=== PATIENT | female | born 1990 | race Caucasian/White ===

== ENCOUNTER 2019-07-17 03:01 | Emergency (ER) | payer MEDICAID, SELFPAY ==
[2019-07-17 03:02] VITALS: BP 125/112; PULSE 109; RESP 20; TEMP 36.6; O2SAT 99; BMI 31.6
--- NOTE | 2019-07-17 04:35 | ED.VISSUMM ---
- ER Visit Summary Date of Service: 07/17/19 Chief Complaint: I am tripping on meth History of Present Illness: The patient is a 29 F who states that she injected methamphetamine into her neck earlier tonight. She states that she is having some bad trips and is having hallucinations. She found her mom said she went to detox so they came here. Patient also states she has used cocaine and some sobs (meaning Suboxone). She is a smoker. She cannot tell me what medications she takes but thinks she may have a seizure disorder. She is allergic to penicillin. She is worried she is but thinks that that may just be related to her amphetamine high. She does states that she wants detox Physical Examination: Afebrile vital signs are stable noted heart rate of 109. Gen: Well-nourished well-developed Head: Normocephalic atraumatic Eyes: Perrl EOMI ENT: TMs clear no rhinorrhea moist mucous membranes Neck: Supple no lymphadenopathy no JVD nontender CVS: Regular rate rhythm no murmurs normal S1-S2 Respiratory: No distress clear to auscultation bilaterally chest nontender Abdomen: Soft nontender nondistended normal bowel sounds no masses Back: Nontender Extremity: Nontender no edema Skin: Normal color no rash Neuro: Hyper alert but orientated x3 CN II-XII intact normal strength sensation reflexes gait cerebellar Psych: Patient is hyper alert. She is expressing hallucinations of voices and seeing people do things that they are not. She is pacing around the room. At sometimes she does get agitated. Test Results: test was negative Emergency Department Course and Treatment: Patient is requesting something to help calm her down and she received Geodon. She will be reassessed when she is sober. Impression: 1. Methamphetamine toxidrome This note was generated with [employer] software. It may contain incorrect words, spelling, and punctuation that were not noted in review of the chart prior to signing <Caleb Bates - Last Filed: 07/17/19 04:35> - ER Visit Summary Date of Service: 07/17/19 The patient was evaluated until she was clinically sober. She was seen by social work. Arrangements have been made for outpatient follow-up. She will be discharged home. This note was generated with [employer] software. It may contain incorrect words, spelling, and punctuation that were not noted in review of the chart prior to signing <Cristiano Sanabria - Last Filed: 07/17/19 13:12> ED Disposition <Caleb Bates - Last Filed: 07/17/19 04:35> <Crisitano Sanabria - Last Filed: 07/17/19 13:12> - Plan for ED Patient: Instructions: Drug Abuse Referrals: Care Physician,No Primary [Primary Care Provider] -
[2019-07-17 04:38] LABS: Internal QC Validated? YES +Cl - CLEAR BKGD; Pregnancy, Urine Negative Negative
[2019-07-17] MEDS: Ziprasidone IM 20 MG/ML VIAL IM (04:42)
[2019-07-17 04:56] LABS: Amphetamine Urine VISTA POSITIVE (<1000 ng/mL); Barbiturate Urine VISTA NEGATIVE (< 200 ng/mL); Benzodiazepine Urine VISTA NEGATIVE (< 200 ng/mL); Cocaine Urine VISTA POSITIVE (< 300 ng/mL); Ecstacy Urine VISTA NEGATIVE (< 500 ng/mL); Methadone Urine VISTA NEGATIVE (< 300 ng/mL); PCP Urine VISTA NEGATIVE (< 25 ng/mL); THC Urine VISTA POSITIVE (< 50 ng/mL); Vista UDS pH Range 7
[2019-07-17 07:00] VITALS: RESP 16
[2019-07-17 09:00] VITALS: RESP 14
[2019-07-17 11:00] VITALS: BP 99/60; PULSE 57; RESP 16; O2SAT 100
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
[2019-07-17 13:17] VITALS: PULSE 103; RESP 16; O2SAT 99
== END 2019-07-17 13:18 | disposition home or self-care (01) ==
PROVIDERS: Emergency Provider Emergency Medicine
DX: T43.691A Poisoning by other psychostimulants, accidental (unintentional), initial encounter (principal); Y92.9 Unspecified place or not applicable; F14.90 Cocaine use, unspecified, uncomplicated; F17.200 Nicotine dependence, unspecified, uncomplicated
CPT/HCPCS: 80307; 81025; 96372; 99282; J3486

== ENCOUNTER 2020-02-15 13:51 | Emergency (ER) | payer MEDICAID, SELFPAY ==
[2020-02-15 13:51] VITALS: BP 125/78; PULSE 98; RESP 16; TEMP 36.2; O2SAT 99; BMI 29.0
--- NOTE | 2020-02-15 14:32 | ED.DEP ---
ED Disposition - Plan for ED Patient: Instructions: ED ENTEROBIASIS Prescriptions: Mebendazole [Emverm] 100 mg PO X1 #2 tab.chew Referrals: Care Physician,No Primary [Primary Care Provider] -
--- NOTE | 2020-02-15 14:39 | ED.DCSUM_ITS ---
- ER Visit Summary Date of Service: 02/15/20 Chief Complaint: Something in stool History of Present Illness: The patient is a 29 F states that she saw something in her stool that she thought was a worm. She states it appeared thin and white. She denies anal itching. She also complains of feeling that she has bugs all over her skin. She frequently picks her skin. She has a history of methamphetamine use. She denies fever, other complaints. Physical Examination: Vitals are stable. Patient is afebrile. Alert no acute distress. HEENT exam is unremarkable. Neck is supple. Lungs are clear and equal bilaterally. Heart is regular rate and rhythm. Abdomen is soft nontender nondistended. Extremities are unremarkable. Skin is warm and dry. Multiple excoriations and scabbing No focal neurologic deficit. Remainder of exam is unremarkable. Emergency Department Course and Treatment: I do not visualize any bugs on her skin. She is given a prescription for mebendazole to treat for possible pinworms. Stool studies were sent. Advised to follow-up with her primary care physician. Advised return to the ED for worsening complaints. Disposition: Discharge home Impression: Reported worms in stool, polysubstance abuse This note was generated with [employer] dictation software. It may contain incorrect words, spelling, and punctuation that were not noted in review of the chart prior to signing ED Disposition - Plan for ED Patient: Instructions: ED ENTEROBIASIS Prescriptions: Mebendazole [Emverm] 100 mg PO X1 #2 tab.chew Prescription Printed Referrals: Care Physician,No Primary [Primary Care Provider] -
== END 2020-02-15 15:29 | disposition home or self-care (01) ==
PROVIDERS: Emergency Provider Emergency Medicine
DX: R19.5 Other fecal abnormalities (principal); F19.10 Other psychoactive substance abuse, uncomplicated; Z72.0 Tobacco use
CPT/HCPCS: 87506; 99282

== ENCOUNTER → 2025-01-18 | Outpatient (CLI) | payer MEDICAID, SELFPAY ==
[2025-01-18 14:18] LABS: Hemoglobin A1c 5.6 % (<=5.6)
[2025-01-18 15:29] LABS: ALB/GLOB Ratio 1.2 RATIO (0.9-2.4); AST(SGOT) 33 U/L (<=31); Alanine Aminotransfer ALT/SGPT 45 U/L (<=34); Albumin, Serum 4.2 g/dL (3.5-5.0); Alkaline Phosphatase 75 U/L (35-104); Anion Gap 12 (5-15); BUN 10 mg/dL (4-19); BUN/Creat Ratio 15.5 RATIO (10-20); Calcium,Total 9.2 mg/dL (7.6-11.0); Carbon Dioxide 21.9 mmol/L (21.0-32.0); Chloride 104 mmol/L (98-108); Creatinine, Serum 0.63 mg/dL (0.70-1.20); EST Glomerular Filtration Rate 121 (>60); Globulin 3.6 g/dL (2.2-4.2); Glucose 96 mg/dL (70-99); HIV Nonreactive (Nonreactive); Hepatitis B Surface Antibody REAC; Hepatitis B Surface Antigen Nonreactive (Nonreactive); Potassium 3.9 mmol/L (3.3-5.1); Protein, Total 7.8 g/dL (5.9-8.4); Sodium Level 137 mmol/L (133-145); Total Bilirubin 0.38 mg/dL (0.00-1.30)
== END | disposition home or self-care (01) ==
PROVIDERS: Referring Provider Family Medicine; Visit Provider Family Medicine
DX: F11.20 Opioid dependence, uncomplicated (principal)
CPT/HCPCS: 36415; 80053; 83036; 84443; 86703; 86706; 86708; 87340; 87522; 87902

== ENCOUNTER → 2025-02-15 | Outpatient (CLI) | payer MEDICAID, SELFPAY ==
[2025-02-15 12:36] LABS: Hematocrit 34.1 % (37-47); Hemoglobin 11.5 g/dL (12.0-15.0); Mean Corp Hgb Conc 33.7 g/dL (32-36); Mean Corpuscular Hgb 26.7 pg (27.0-32.0); Mean Corpuscular Volume 79.1 fL (81-99); Platelet Count 231 K/mm3 (150-450); RBC Distribution Width CV 13.5 % (11.6-14.6); RBC Distribution Width SD 38.9 fl (35.1-43.9); Red Blood Count 4.31 M/mm3 (4.2-5.4); White Blood Count 5.8 K/mm3 (4.4-11.0)
[2025-02-15 12:56] LABS: Prothrombin Time (Protime)PT. 13.4 SECONDS (11.7-14.9)
[2025-02-15 13:16] LABS: Hepatitis B Surface Antibody REAC
[2025-02-15 13:35] LABS: ALB/GLOB Ratio 1.1 RATIO (0.9-2.4); AST(SGOT) 22 U/L (<=31); Alanine Aminotransfer ALT/SGPT 35 U/L (<=34); Albumin, Serum 4.1 g/dL (3.5-5.0); Alkaline Phosphatase 72 U/L (35-104); Anion Gap 11 (5-15); BUN 13 mg/dL (4-19); BUN/Creat Ratio 19.9 RATIO (10-20); Calcium,Total 9.9 mg/dL (7.6-11.0); Carbon Dioxide 21.4 mmol/L (21.0-32.0); Chloride 104 mmol/L (98-108); Cholesterol 92 mg/dL (<=200); Creatinine, Serum 0.63 mg/dL (0.70-1.20); EST Glomerular Filtration Rate 121 (>60); Globulin 3.8 g/dL (2.2-4.2); Glucose 87 mg/dL (70-99); HIV Nonreactive (Nonreactive); Hepatitis B Surface Antigen Nonreactive (Nonreactive); High Density Lipoprotein 60 mg/dL; Low Density Lipoprotein Calc. 24 mg/dL; Protein, Total 7.9 g/dL (5.9-8.4); Sodium Level 136 mmol/L (133-145); Total Bilirubin 0.54 mg/dL (0.00-1.30); Triglycerides 36 mg/dL; Very Low Density Lipoprotein 7 mg/dL (5-40); Vitamin B12 463 pg/mL (180-914); Vitamin D,25 Hydroxy 24.4 ng/mL (30-100); cholesterol:hdl ratio screen 1.52
== END | disposition home or self-care (01) ==
LOC: LAB 11:48
PROVIDERS: PCP Family Medicine; Referring Provider Family Medicine; Visit Provider Family Medicine
DX: B18.2 Chronic viral hepatitis C (principal)
CPT/HCPCS: 36415; 80053; 80061; 82306; 82607; 85027; 85610; 86703; 86706; 86708; 87340; 87522; 87902

== ENCOUNTER → 2025-04-12 | Outpatient (CLI) | payer MEDICAID, SELFPAY ==
[2025-04-12 13:14] LABS: Free T3 3.2 pg/mL (2.18-3.98)
--- OUTSIDE RECORDS SUMMARY | 2025-04-12 21:15 | XMS RPT_ITS | CCD ---
Author Organization [facility] CliniSynh Care Team Providers Care Ophthalmic Surgeon Name Role Phone Criss Larry Unavailable Unavailable Unavailable Unavailable Unavailable Vore, Gabriel W Unavailable Unavailable Vore, Gabriel W Unavailable Unavailable THOMAE, FÉLIX R. Unavailable Unavailable THOMAE, FÉLIX R. Unavailable Unavailable THOMAE, FÉLIX R. Unavailable Unavailable Thomae, Félix Unavailable Unavailable Thomae, Félix Unavailable Unavailable Thomae, Félix Unavailable Unavailable Thomae, Félix Unavailable Unavailable Thomae, Félix Unavailable Unavailable Thomae, Félix Unavailable Unavailable Thomae, Félix Unavailable Unavailable Thomae, Félix Unavailable Unavailable Criss Larry Primary Care Provider Gabby vailable Criss Larry Primary Care Provider [phone] Criss Larry Primary Care Provider [phone] NONE, NONE Primary Care Unavailable ROSELIA BOURGEOIS A Admitting Unavailable ROSELIA BOURGEOIS A Attending Unavailable NONE, NONE Consulting Unavailable LaronCriss novoa CNP Primary Care Provider Criss Larry CNP Primary Care Provider Ceci Lal CNP Unavailable Lance GONSALES, Amanda Gannon Unavailable Preston GONSALES, Susannah Muñoz Unavailable Shireen DONG, Salud Mchugh Unavailable LaronCriss novoa CNP Primary Care Provider [facility], Ceci Burnettee Unavailable [phone] Lance GONSALES, Amanda Gannon Unavailable Susannah Johnston MD Unavailable [phone] Shireen VALLECILLO, Salud Lolita Unavailable No, Physician Primary Care Provider Unavailabl e Required, No Pcp Unavailable Unavailable Vazquez, Camron Unavailable Vazquez, PAC Camron Attending Unavailable Vazquez, PAC Camron Attending Unavailable [facility], Ceci Lore Unavailable Lance GONSALES, Amanda Gannon Unavailable Preston GONSALES, Susannah Muñoz Unavailable Shireenprudencio VALLECILLO, Salud Lolita Unavailable No, Physician Primary Care Provider Unavailsaroj Cox MD, Maycol Hood Unavailable [phone] [facility], Criss Lantigua Primary Care Provider No, Physician Primary Care Provider Unavailabl e Candice CLINICAL NURSE EDUCATOR, Guerline Hinton Primary Care Provider Unavailable Primary Care Provider Unavailabl e DANYEL NEWELL Attending Unavailable Rickey GONSALES, Susannah Muñoz Unavailable [phone] BETHANY CROWDER Attending Unavailable GUERLINE HARVEY Primary Care Unavailable GUERLINE HARVEY Primary Care Unavailable YAMIL OLIVEROS JR. Attending Unava ilable GUERLINE HARVEY Primary Care Unavailable MIGUEL ÁNGEL WOODS Attending Unavailable Labor, Rhina Attending Unavailable Labor, Rhina Referring Unavailable Care Physician, No Primary Primary Care Unava ilable Labor, Rhina Attending Unavailable Labor, Rhina Referring Unavailable Labor, Rhina Primary Care Unavailable Allergies Allergy Classification Reported Allergen(s) Allergy Type Date of Onset Reaction(s) Facility Penicillins (antibiotic) (1 source) Penicillins Drug Allergy 6 [facility] Work Phone: (14 sources) Penicillins; Translations: [penicillins] Propensity to adverse reactions to drug 6 Hives [facility] (1 source) No Known Allergies; Translations: [No Known Allergies] Propensity to adverse reactions to drug (disorder) [facility] Repository (1 source) Penicillins Drug allergy (disorder) [facility] Repository (5 sources) Penicillins Propensity to adverse reactions to drug 6 [facility] Work Phone: (8 sources) Penicillins Propensity to adverse reactions to drug 6 [facility] Work Phone: (2 sources) Penicillin Drug Allergy [facility] (1 source) Penicillins Propensity to adverse reactions to drug 4 [facility] (1 source) Penicillins Propensity to adverse reactions to drug 6 [facility] Work Phone: (1 source) Penicillins Drug allergy (disorder) 0 [facility] Repository Medications Current Medications Medication Drug Class(es) Dates Sig (Normalized) Sig (Original) azithromycin 500 mg oral tablet (2 sources) Macrolide Antimicrobial Start: 04-22-2019 take 2 tablets by mouth once daily azithromycin (ZITHROMAX) 500 MG tablet Take 2 (two) tablets (1,000 mg total) by mouth daily . 2 tablet 0 04/22/2019 Active baclofen 10 mg oral tablet (8 sources) gamma-Aminobutyric Acid-ergic Agonist Start: 08-02-2022 End: 08-08-2022 take 1 tablet by mouth three times daily for muscle spasms baclofen 10 mg oral tablet ; 1 tab(s) orally 3 times a day, As Needed -for spasms Quantity: 21 Refills: 0 Ordered: 02-Aug-2022 Camron Shukla Start: 02-Aug-2022 End: 08-Aug-2022 Generic Substitution Allowed Comments: It is very important that you take or use this exactly as directed. Do not skip doses or discontinue unless directed by your doctor.May cause drowsiness. Alcohol may intensify this effect. Use care when operating dangerous machinery.Obtain medical advice before taking any non-prescription drugs as some may affect the action of this medication. Start: 11-24-2019 take 1 tablet by [place] three times daily baclofen (LIORESAL) 20 MG tablet Take 1 (one) tablet (20 mg total) by mouth 3 (three) times a day . 90 tablet 0 11/24/2019 Active Start: 09-30-2019 End: 10-30-2019 take 1 tablet by mouth three times daily baclofen (LIORESAL) 20 MG tablet Take 1 (one) tablet (20 mg total) by mouth 3 (three) times a day . 90 tablet 0 09/30/2019 10/30/2019 Active Start: 10-30-2018 take 1 tablet by [place] three times daily baclofen (LIORESAL) 10 MG tablet Take 1 (one) tablet (10 mg total) by mouth 3 (three) times a day . 90 tablet 0 10/30/2018 Active Comment on above: It is very important that you take or use this exactly as directed. Do not skip doses or discontinue unless directed by your doctor.May cause drowsiness. Alcohol may intensify this effect. Use care when operating dangerous machinery.Obtain medical advice before taking any non-prescription drugs as some may affect the action of this medication. benzoyl peroxide 50 mg/ml medicated liquid soap (4 sources) Start: 10-05-2019 End: 10-04-2020 benzoyl peroxide (BENZAC AC) 5 % external wash Indications: Acne, unspecified acne type Apply topically 2 (two) times a day . 226 g 0 10/05/2019 10/04/2020 Active Brixadi 8 mg/0.16 mL injection (2 sources) Start: 10-06-2024 Brixadi 8 mg/0.16 mL injection 10/06/2024 Active buprenorphine 4 mg / naloxone 1 mg oral strip (5 sources) Partial Opioid Agonist, Opioid Antagonist Start: 12-09-2019 buprenorphine-nalOXone (SUBOXONE FILM) 4-1 mg Film Indications: Opioid abuse (HCC) Place 1 (one) each (4 mg of buprenorphine total) under the tongue daily Days supply per fill: seven. Days one and two: 2 films perday. Thereafter 1 film per day . 9 each 0 12/09/2019 Active buprenorphine-na lOXone (SUBOXONE) 12-[address] under the tongue daily . 0 Active citalopram 20 mg oral tablet (7 sources) Serotonin Reuptake Inhibitor Start: 01-12-2019 take 1 tablet by mouth once daily citalopram (CELEXA) 20 MG tablet Take 1 (one) tablet (20 mg total) by mouth daily . 90 tablet 0 01/12/2019 Active take 1 tablet by mouth once willie y citalopram (CELEXA) 20 MG tablet Take 20 mg by mouth daily. Active cloNIDine hydrochloride 0.1 mg oral tablet (20 sources) Central alpha-2 Adrenergic Agonist Start: 10-06-2024 take 1 tablet by mouth twice daily cloNIDine HCL (CATAPRES) 0.1 MG tablet Take 1 (one) tablet (0.1 mg total) by mouth 2 (two) times a day . 10/06/2024 Active Start: 08-02-2022 End: 08-08-2022 [id number] 0.1 mg/24 hr transdermal film, extended release ; Apply topically to affected area once a day Quantity: 7 Refills: 0 Ordered: 02-Aug-2022 Camron Shukla Start: 02-Aug-2022 End: 08-Aug-2022 Generic Substitution Allowed Comments: For external use only.It is very important that you take or use this exactly as directed. Do not skip doses or discontinue unless directed by your doctor.May cause drowsiness. Alcohol may intensify this effect. Use care when operating dangerous machinery.Remove old patch prior to applying a new patch.Some non-prescription drugs may aggravate your condition. Read all labels carefully. If a warning appears, check with your doctor before taking. Start: 10-03-2021 End: 11-27-2022 take 1 tablet by mouth three times daily for anxiety cloNIDine HCL (CATAPRES) 0.1 MG tablet Indications: Mood disorder (HCC) take 1 tablet by mouth three times a day if needed for anxiety 60 tablet 2 12/05/2021 11/27/2022 Discontinued (Patient's Request) Start: 03-07-2020 take 1 tablet by [place] th three times daily as needed for anxiety cloNIDine HCL (CATAPRES) 0.1 MG tablet Take 1 (one) tablet (0.1 mg total) by mouth 3 (three) times a day as needed (anxiety) . 60 tablet 2 03/07/2020 Active Start: 01-12-2019 End: 09-14-2020 take 1 tablet by mouth twice daily cloNIDine HCl (CATAPRES) 0.1 MG tablet Take 1 (one) tablet (0.1 mg total) by mouth 2 (two) times a day . 60 tablet 1 04/22/2019 04/21/2020 Active Comment on above: For external use onl y.It is very important that you take or use this exactly as directed. Do not skip doses or discontinue unless directed by your doctor.May cause drowsiness. Alcohol may intensify this effect. Use care when operating dangerous machinery.Remove old patch prior to applying a new patch.Some non-prescription drugs may aggravate your condition. Read all labels carefully. If a warning appears, check with your doctor before taking. doxycycline hyclate 100 mg oral tablet (1 source) Tetracycline-class Drug Start: 10-02-19 End: 10-16-19 22 take 1 tablet by mouth twice daily doxycycline hyclate (VIBRA-TABS) 100 MG tablet Take 1 (one) tablet (100 mg total) by mouth 2 (two) times a day for 14 days . 28 tablet 0 10/02/2021 10/16/2021 Active lamoTRIgine 25 mg oral tablet (18 sources) Mood Stabilizer, Anti-epileptic Agent Start: 11-28-19 23 lamoTRIgine (LAMICTAL) 25 MG tablet Indications: Psychogenic nonepileptic seizure , Bipolar affective disorder, remission status unspecified (HCC) Take 25 mg (1 tablet) once a day for 2 weeks, then increase to 50 mg (2 tablets) daily. . 60 tablet 5 11/27/2022 Active Start: 03-07-2020 End: 10-23-2021 lamoTRIgine (LAMICTAL) 100 M G tablet Indications: Seizure (HCC) Take 1.5 (one and a half) tablets (150 mg total) by mouth 2 (two) times a day . 45 tablet 2 03/07/2020 10/23/2021 Discontinued (Patient's Request) Start: 02-15-2020 lamoTRIgine (L AMICTAL) 100 MG tablet take 1 and 1/2 tablets by mouth twice a day 90 tablet 0 02/15/2020 Active Start: 12-27-2019 lamoTRIgine (L AMICTAL) 100 MG tablet take 1 and 1/2 tablets by mouth twice a day 90 tablet 0 12/27/2019 Active Start: 10-04-2019 lamoTRIgine (L AMICTAL) 100 MG tablet Take 1.5 (one and a half) tablets (150 mg total) by mouth 2 (two) times a day . 90 tablet 0 10/04/2019 Active Start: 10-30-2018 lamoTRIgine (L AMICTAL) 100 MG tablet Take 1.5 (one and a half) tablets (150 mg total) by mouth 2 (two) times a day . 270 tablet 1 10/30/2018 Active Start: 01-29-2018 lamoTRIgine (L AMICTAL) 100 MG tablet Take 1.5 (one and a half) tablets (150 mg total) by mouth 2 (two) times a day. 270 tablet 1 01/29/2018 Active Start: 12-09-2016 take 1.5 tablets by mouth twice daily lamoTRIgine (LAMICTAL) 100 MG tablet Take 1.5 tablets (150 mg total) by mouth 2 (two) times a day. 270 tablet 5 12/09/2016 Active lofexidine 0.18 mg oral tablet (3 sources) Start: 11-24-2019 take 0.54 mg by mouth four times daily lofexidine 0.18 mg Tab Indications: Opioid withdrawal (HCC) Take 0.54 mg by mouth 4 (four) times a day . 96 tablet 0 11/24/2019 Active Start: 09-30-2019 take 0.54 mg by mout h four times daily lofexidine 0.18 mg Tab Take 0.54 mg by mouth 4 (four) times a day . 36 tablet 0 09/30/2019 Active mupirocin 0.02 mg/mg topical ointment (5 sources) RNA Synthetase Inhibitor Antibacterial Start: 08-02-2022 mupirocin 2% top ical ointment ; Apply topically to affected area 3 times a day Quantity: 1 Refills: 0 Ordered: 02-Aug-2022 Camron Shukla Start: 02-Aug-2022 Generic Substitution Allowed Comments: For external use only. Start: 06-04-2022 End: 11-27-2022 mupirocin (BACTROBAN) 2 % oi ntment Apply topically 3 (three) times a day . 22 g 0 06/04/2022 11/27/2022 Discontinued (Patient's Request) Comment on above: For external use onl y. naloxone hydrochloride 40 mg/ml nasal spray (6 sources) Opioid Antagonist Start: 06-10-2022 naloxone (NARCAN) 4 mg/actuation [place] Indications: Psychogenic nonepileptic seizure Administer 1 spray into one nostril for known or suspected opioid overdose. If patient worsens or does not respond, may repeat in 2-3 minutes. . 2 each 0 06/10/2022 Active Start: 04-26-2019 End: 04-26-2019 naloxone (NARCAN) injection 2 mg naloxone (NARCAN) 4 mg/actuation [place] (2 sources) Start: 06-10-2022 naloxone (NARC AN) 4 mg/actuation [place] Indications: Psychogenic nonepileptic seizure Administer 1 spray into one nostril for known or suspected opioid overdose. If patient worsens or does not respond, may repeat in 2-3 minutes. . 2 each 06/10/2022 Active naltrexone 380 mg injection (6 sources) Opioid Antagonist Start: 09-30-2019 naltrexone m icrospheres (VIVITROL) Indications: Heroin Use Inject 380 (three hundred eighty) mg into the shoulder, thigh, or buttocks every 30 (thirty) days . 1 each 11 09/30/2019 Active Start: 10-15-2016 VIVITROL Injec t 380 mg into the shoulder, thigh, or buttocks every 28 days. 6 10/15/2016 Active ondansetron 4 mg disintegrating oral tablet (14 sources) Serotonin-3 Receptor Antagonist Start: 05-11-2024 End: 05-11-2024 4 mg, Intravenous, ONCE, 1 dose, On Fri05/11/24 at 2030 Start: 08-02-2022 End: 08-06-2022 take 1 tablet by mouth three times daily ondansetron 4 mg oral tablet, disintegrating ; 1 tab(s) orally 3 times a day Quantity: 15 Refills: 0 Ordered: 02-Aug-2022 Camron Shukla Start: 02-Aug-2022 End: 06-Aug-2022 Generic Substitution Allowed Start: 03-08-2020 End: 10-23-2021 apply 1 tablet topically every eight hours as needed for nausea ondansetron (ZOFRAN-ODT) 4 MG disintegrating tablet Indications: Opioid abuse (HCC) Dissolve 1 (one) tablet (4 mg total) on top of tongue every 8 (eight) hours as needed for nausea . 6 tablet 0 03/08/2020 10/23/2021 Discontinued (Patient's Request) Start: 02-24-2020 End: 10-23-2021 take 4 mg by mouth every eight hours as needed ondansetron (ZOFRAN) 8 MG tablet Take 0.5 (one-half) tablet (4 mg total) by mouth every 8 (eight) hours as needed . 14 tablet 0 02/24/2020 10/23/2021 Discontinued (Patient's Request) Start: 05-05-2019 End: 05-05-2019 ondansetron (ZOFRAN-ODT) disintegrating tablet 4 mg Start: 10-30-2018 take 1 tablet by [place] th every eight hours as needed ondansetron (ZOFRAN) 4 MG tablet Take 1 (one) tablet (4 mg total) by mouth every 8 (eight) hours as needed for nausea . 20 tablet 0 10/30/2018 Active sertraline 100 mg oral tablet (16 sources) Serotonin Reuptake Inhibitor Start: 10-06-2024 take 1 tablet by mouth once daily sertraline (ZOLOFT) 100 MG tablet Take 1 (one) tablet (100 mg total) by mouth daily . 10/06/2024 Active Start: 10-03-2021 End: 11-27-2022 take 1 tablet by mouth once daily sertraline (ZOLOFT) 50 MG tablet Take 1 (one) tablet (50 mg total) by mouth daily . 30 tablet 2 12/14/2021 11/27/2022 Discontinued (Patient's Request) Start: 09-15-2019 End: 09-14-2020 take 1 tablet by mouth once daily sertraline (ZOLOFT) 25 MG tablet Indications: Mood disorder (HCC) take 1 tablet by mouth once daily 30 tablet 0 07/25/2020 Active sulfamethoxazole 800 mg / trimethoprim 160 mg oral tablet (1 source) Dihydrofolate Reductase Inhibitor Antibacterial, Sulfonamide Antimicrobial Start: 08-02-2022 End: 08-11-2022 take 1 tablet by mouth every twelve hours Bactrim DS 800 mg-160 mg oral tablet ; 1 tab(s) orally every 12 hours Quantity: 20 Refills: 0 Ordered: 02-Aug-2022 Camron Shukla Start: 02-Aug-2022 End: 11-Aug-2022 Generic Substitution Allowed Comments: Avoid prolonged or excessive exposure to direct and/or artificial sunlight while taking this medication.Finish all this medication unless otherwise directed by prescriber.Medication should be taken with plenty of water. Comment on above: Avoid prolonged or e xcessive exposure to direct and/or artificial sunlight while taking this medication.Finish all this medication unless otherwise directed by prescriber.Medication should be taken with plenty of water. Completed/Discontinued Medications Medication Drug Class(es) Dates Sig (Normalized) Sig (Original) amoxicillin 875 mg / clavulanate 125 mg oral tablet (1 source) Penicillin-class Antibacterial Start: 06-04-2022 End: 06-11-2022 take 1 tablet by mouth twice daily amoxicillin-clavul anate (AUGMENTIN) 875-125 mg per tablet Take 1 (one) tablet by mouth 2 (two) times a day for 7 days . 14 tablet 0 06/04/2022 06/11/2022 benzoyl peroxide 0.05 mg/mg / clindamycin 0.01 mg/mg topical gel (2 sources) Lincosamide Antibacterial Start: 01-12-2019 End: 01-12-2020 clindamycin-benzoy l peroxide (BENZACLIN) gel Apply topically 2 (two) times a day . 25 g 0 01/12/2019 03/19/2019 Discontinued (Therapy completed) buprenorphine 2 mg sublingual tablet (2 sources) Partial Opioid Agonist Start: 07-15-2022 End: 07-17-2022 take 1 tablet under the tongue twice daily buprenorphine 2 mg sublingual tablet ; 1 tab(s) sublingually 2 times a day ANGELA: [id number] Quantity: 6 Refills: 0 Ordered: 15-Jul-2022 Camron Shukla Start: 15-Jul-2022 End: 17-Jul-2022 Status: Other Generic Substitution Allowed Comments: Caution [place] law prohibits the transfer of this drug to any person other than the person for whom it was prescribed.Do not drink alcoholic beverages when taking this medication.It is very important that you take or use this exactly as directed. Do not skip doses or discontinue unless directed by your doctor.May cause drowsiness or dizziness.This drug may impair the ability to drive or operate machinery. Use care until you become familiar with its effects. Comment on above: [place]ution [place] law prohibits the transfer of this drug to any person other than the person for whom it was prescribed.Do not drink alcoholic beverages when taking this medication.It is very important that you take or use this exactly as directed. Do not skip doses or discontinue unless directed by your doctor.May cause drowsiness or dizziness.This drug may impair the ability to drive or operate machinery. Use care until you become familiar with its effects. clindamycin 150 mg oral capsule (3 sources) Lincosamide Antibacterial Start: 07-15-2022 End: 07-21-2022 take 2 capsules by mouth every eight hours clindamycin 150 mg oral capsule ; 2 cap(s) orally every 8 hours Quantity: 42 Refills: 0 Ordered: 15-Jul-2022 Camron Shukla Start: 15-Jul-2022 End: 21-Jul-2022 Status: Other Generic Substitution Allowed Comments: Finish all this medication unless otherwise directed by prescriber.Medicat ion should be taken with plenty of water. Start: 10-02-2021 End: 10-16-2021 take 1 capsule by mouth three times daily clindamycin (CLEOCIN) 300 MG capsule Take 1 (one) capsule (300 mg total) by mouth 3 (three) times a day for 14 days . 42 capsule 0 10/02/2021 10/16/2021 Active Comment on above: Finish all this medi cation unless otherwise directed by prescriber.Medication should be taken with plenty of water. dicyclomine hydrochloride 10 mg oral capsule (2 sources) Anticholinergic Start: 2018 End: 2018 take 1 capsule by mouth three times daily as needed dicyclomine (BENTYL) 10 MG capsule Take 1 (one) capsule (10 mg total) by mouth 3 (three) times a day as needed (stomach cramps) . 30 capsule 0 10/30/2018 03/19/2019 Discontinued (Discontinued by another clinician) 1 ml diphenhydrAMINE hydrochloride 50 mg/ml cartridge (1 source) Histamine-1 Receptor Antagonist Start: 2023 End: 2023 50 mg, Intravenous, ONCE, 1 dose, On Fri05/11/24 at 2030 Ethinyl Estradiol / norgestimate (11 sources) Progestin, Estrogen Start: 2018 End: 2021 take 1 tablet by mouth once daily norgestimate-ethin yl estradiol (ORTHO-CYCLEN) 0.25-35 mg-mcg per tablet Take 1 (one) tablet by mouth daily . 30 tablet 11 10/30/2018 10/23/2021 Discontinued (Patient's Request) Start: 10-30-2018 [facility] norgestimate-ethinyl estradiol (ORTHO-CYCLEN) 0.25-35 mg-mcg per tablet Take 1 (one) tablet by mouth daily . 30 tablet 11 10/30/2018 Active Start: 10-30-2018 End: 10-30-2019 take 1 tablet by mouth once daily norgestimate-ethinyl estradiol (ORTHO-CYCLEN) 0.25-35 mg-mcg per tablet Take 1 (one) tablet by mouth daily . 30 tablet 11 10/30/2018 10/30/2019 Active gabapentin 800 mg oral tablet (20 sources) Anti-epileptic Agent Start: 08-05-2022 End: 11-27-2022 take 1 tablet by mouth three times daily gabapentin (NEURONTIN) 800 MG tablet Indications: Psychogenic nonepileptic seizure Take 1 (one) tablet (800 mg total) by mouth 3 (three) times a day . 90 tablet 0 08/05/2022 11/27/2022 Discontinued (Patient's Request) Start: 12-09-2016 End: 06-10-2022 take 1 tablet by mouth three times daily gabapentin (NEURONTIN) 800 MG tablet Indications: Psychogenic nonepileptic seizure take 1 tablet by mouth three times a day 90 tablet 0 05/10/2022 06/10/2022 Discontinued take 1 capsule by [facility] three times daily gabapentin (NEURONTIN) 400 MG capsule Take 1 (one) capsule (400 mg total) by mouth 3 (three) times a day . Active hydrOXYzine pamoate 25 mg oral capsule (2 sources) Antihistamine Start: 10-30-2018 End: 03-19-2019 take 1 capsule by mouth three times daily as needed for anxiety hydrOXYzine (VISTARIL) 25 MG capsule Take 1 (one) capsule (25 mg total) by mouth 3 (three) times a day as needed for anxiety . 90 capsule 0 10/30/2018 03/19/2019 Discontinued (Discontinued by another clinician) 1 ml LORazepam 2 mg/ml injection (2 sources) Benzodiazepine Start: 05-11-2024 End: 05-11-2024 1 mg, Intravenous, ONCE, 1 dose, On Fri05/11/24 at 2200, Extravasation Risk mebendazole 100 mg chewable tablet (1 source) Antihelminthic Start: 02-15-2020 End: 10-23-2021 mebendazole (VERMOX) 100 mg chewable tablet Mebendazole Active 100 MG ONE TIME 2 February 15, 2020 2:33pm take one tab then repeat in 2 weeks 0 02/15/2020 10/23/2021 Discontinued (Patient's Request) methadone hydrochloride 1 mg/ml oral solution (2 sources) Opioid Agonist End: 03-10-2023 take 30 mL by mouth once daily methadone (DOLOPHINE) 5 mg/5 mL solution Take 30 mL (30 mg total) by mouth daily . 0 03/10/2023 Discontinued (Discontinued by another clinician) multiple vitamin (MVI) 10 mL, Folic acid 1 mg, Thiamine (Vitamin B-1) 100 mg, Magnesium sulfate 2 g in Sodium chloride 0.9%, with overfill 1,065.2 mL (total volume) infusion (1 source) Start: 05-11-2024 End: 05-11-2024 Intravenous, Administer over 2 Hours, ONCE, 1 dose, On Fri05/11/24 at 2030 pantoprazole 40 mg injection (1 source) Proton Pump Inhibitor Start: 05-11-2024 End: 05-11-2024 40 mg, Intravenous, ONCE, 1 dose, On Fri05/11/24 at 2030, Dilute each 40 mg vial with 10 mL of NS. All bolus doses, whether 40 mg or 80 mg, should be administered over at least two minutes., Indications: Inpt Stress Ulcer Prophylaxis QUEtiapine 100 mg oral tablet (20 sources) Atypical Antipsychotic Start: 10-03-2021 End: 11-27-2022 take 1 tablet by mouth once daily QUEtiapine (SEROQUEL) 100 MG tablet Indications: Mood disorder (HCC) Take 1 (one) tablet (100 mg total) by mouth nightly . 45 tablet 2 10/03/2021 11/27/2022 Discontinued (Patient's Request) Start: 03-07-2020 take 1 tablet by [place] th once daily QUEtiapine (SEROQUEL) 100 MG tablet Indications: Mood disorder (HCC) Take 1 (one) tablet (100 mg total) by mouth nightly . 45 tablet 2 03/07/2020 Active Start: 09-15-2019 QUEtiapine (SE ROQUEL) 100 MG tablet Take 1.5 (one and a half) tablets (150 mg total) by mouth nightly . 45 tablet 1 09/15/2019 Active Start: 05-05-2019 QUEtiapine (SE ROQUEL) tablet 150 mg Start: 04-22-2019 QUEtiapine (SE ROQUEL) 100 MG tablet Take 1.5 (one and a half) tablets (150 mg total) by mouth nightly . 45 tablet 1 04/22/2019 Active Start: 01-12-2019 QUEtiapine (SE ROQUEL) 100 MG tablet take 1 and 1/2 tablets by mouth every evening 45 tablet 1 12/27/2019 Active take 1 tablet by mouth once QUEt iapine (SEROQUEL) 50 MG tablet Take 50 mg by mouth nightly. Active rOPINIRole 1 mg oral tablet (2 sources) Nonergot Dopamine Agonist Start: 01-12-2019 End: 01-12-2020 take 1 tablet by mouth once daily as needed rOPINIRole (REQUIP) 1 MG tablet Take 1 (one) tablet (1 mg total) by mouth nightly as needed for restless legs . 90 tablet 0 01/12/2019 03/19/2019 Discontinued (Discontinued by another clinician) 1000 ml sodium chloride 9 mg/ml injection (3 sources) Start: 05-11-2024 End: 05-12-2024 Intravenous, at 150 mL/hr, CONTINUOUS, Starting on Fri05/11/24 at 2215, Until Fri05/12/24 at 0235 Start: 02-24-2020 End: 02-24-2020 sodium chloride 0.9% (NS) jenna jc 500 mL Start: 05-05-2019 End: 05-06-2019 sodium chloride (PF) (NS) fl ush 5 mL Problems Active Problems Problem Classification Problem Date Documented Da te Episodic/Chronic Allergic reactions (1 source) Allergy status to penicillin; Translations: [Allergy status to penicillin] Onset: 2 Episodic Anxiety disorders (20 sources) Posttraumatic stress disorder; Translations: [Anxiety disorder] Onset: 6 01-25-2016 Chronic Bacterial infection; unspecified site (1 source) Personal history of Methicillin resistant Staphylococcus aureus infection; Translations: [Personal history of methicillin resis staph infection] Onset: 2 Episodic Fluid and electrolyte disorders (3 sources) Dehydration; Translations: [Dehydration] Onset: 4 05-11-2024 Episodic Gastritis and duodenitis (1 source) Superficial gastritis; Translations: [Acute superficial gastritis without hemorrhage] Episodic Genitourinary symptoms and ill-defined conditions (1 source) Dysuria; Translations: [Dysuria] Onset: 2 Episodic Hepatitis (20 sources) Chronic hepatitis C; Translations: [Chronic viral hepatitis C] Onset: 9 Resolved: 0 11-03-2018 Chronic Mood disorders (20 sources) Depressive disorder; Translations: [Mood disorder] Onset: 6 Resolved: 9 01-25-2016 Chronic Other connective tissue disease (1 source) Pain in arm, unspecified; Translations: [Pain in arm, unspecified] Onset: 2 Episodic Other female genital disorders (1 source) Other specified noninflammatory disorders of vagina; Translations: [Other specified noninflammatory disorders of vagina] Onset: 2 Episodic Other inflammatory condition of skin (1 source) Erythematous condition, unspecified; Translations: [Erythematous condition, unspecified] Onset: 2 Episodic Other liver diseases (1 source) Elevated liver enzymes level; Translations: [Elevated liver enzymes] Episodic Other nutritional; endocrine; and metabolic disorders (8 sources) Body mass index 25-29 - overweight; Translations: [Overweight (BMI 25.0-29.9)] Onset: 9 10-30-2018 Chronic Phlebitis; thrombophlebitis and thromboembolism (1 source) Phlebitis and thrombophlebitis of other sites; Translations: [Phlebitis and thrombophlebitis of other sites] Onset: 2 Episodic Residual codes; unclassified (1 source) Restlessness and agitation; Translations: [Restlessness and agitation] 05-11-2024 Chronic Residual codes; unclassified (2 sources) Restlessness and agitation; Translations: [Restlessness and agitation] Onset: 4 Chronic Screening and history of mental health and substance abuse codes (1 source) Personal history of nicotine dependence; Translations: [Personal history of nicotine dependence] Onset: 2 Episodic Substance-related disorders (20 sources) Polysubstance dependence; Translations: [Opioid abuse] Onset: 6 01-25-2016 Chronic Substance-related disorders (3 sources) Stimulant abuse; Translations: [Other stimulant use, unspecified, uncomplicated] Episodic Unclassified (20 sources) Psychologic conversion disorder; 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] Onset: 6 01-25-2016 Chronic Unclassified (4 sources) Long-term current use of drug therapy; 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] Onset: 0 10-04-2019 Unclassified (2 sources) ARM SWELLING, LUMPS ON LEGS 07-15-2022 Comment on above: ARM SWELLING, LUMPS ON LEGS Unclassified (1 source) Moderate heroin dependence 07-15-2022 Unclassified (1 source) Opiate dependence 07-15-2022 Unclassified (1 source) Cellulitis of right upper extremity 07-15-2022 Unclassified (1 source) IV drug user 07-15-2022 Unclassified (1 source) Poisoning by fentanyl or fentanyl analogs, accidental (unintentional), initial encounter; Translations: [Poisoning by fentanyl or fentanyl analogs, accidental (unintentional), initial encounter] Onset: 4 Past or Other Problems Problem Classification Problem Date Documented Date Episodic/Chronic Deficiency and other anemia (20 sources) Chronic anemia; Translations: [Anemia, unspecified] Onset: 01-25-2016 01-25-2016 Episodic Diabetes mellitus without complication (20 sources) Abnormal glucose level; Translations: [Other abnormal glucose] Onset: 10-30-2018 10-30-2018 Episodic Epilepsy; convulsions (20 sources) Seizure; Translations: [Unspecified convulsions] Onset: 12-11-2015 01-23-2016 Episodic Immunizations and screening for infectious disease (20 sources) Hepatitis C antibody test positive; Translations: [Hepatitis B antibody present] Onset: 11-01-2018 Resolved: 09-18-2020 01-12-2019 Episodic Inflammatory diseases of female pelvic organs (20 sources) Bacterial vaginosis; Translations: [Acute vaginitis] Onset: 11-01-2018 Resolved: 01-12-2019 01-12-2019 Episodic Medical examination/evaluatio n (2 sources) Encounter for general adult medical examination without abnormal findings; Translations: [Encounter for general adult medical examination without abnormal findings] Onset: 01-10-2018 Episodic Other aftercare (15 sources) Long-term current use of drug therapy; Translations: [Other jail (current) drug therapy] Onset: 10-04-2019 10-04-2019 Episodic Other infections; including parasitic (19 sources) Personal history of other infectious and parasitic diseases; Translations: [History of hepatitis C] Onset: 10-04-2019 10-04-2019 Episodic Other nutritional; endocrine; and metabolic disorders (15 sources) Body mass index 25-29 - overweight; Translations: [Overweight] Onset: 10-30-2018 10-30-2018 Episodic Other screening for suspected conditions (not mental disorders or infectious disease) (15 sources) Patient encounter status; Translations: [Encounter for screening for lipoid disorders] Onset: 10-30-2018 Resolved: 01-12-2019 01-12-2019 Episodic Other skin disorders (20 sources) Acne; Translations: [Acne, unspecified] Onset: 01-12-2019 01-12-2019 Episodic Poisoning by other medications and drugs (2 sources) Poisoning by unspecified drugs, medicaments and biological substances, accidental (unintentional), initial encounter; Translations: [Poisoning by unspecified drugs, medicaments and biological substances, accidental (unintentional), initial encounter] Onset: 05-11-2024 Episodic Residual codes; unclassified (18 sources) Hallucinations; Translations: [Hallucinations, unspecified] Onset: 12-01-2019 12-01-2019 Episodic Residual codes; unclassified (15 sources) History of clinical finding in subject; Translations: [Patient's noncompliance with other medical treatment and regimen] Onset: 09-18-2020 09-18-2020 Episodic Skin and subcutaneous tissue infections (20 sources) Cutaneous abscess of left axilla; Translations: [Cellulitis] Onset: 01-24-2016 Resolved: 09-18-2020 01-25-2016 Episodic Comment on above: ABSCESS Skin and subcutaneous tissue infections (7 sources) Abscess of left axilla; Translations: [Abscess of axilla, left] Onset: 01-24-2016 Resolved: 04-22-2019 04-22-2019 Spondylosis; intervertebral disc disorders; other back problems (5 sources) Sciatica; Translations: [Sciatica, unspecified side] Onset: 12-18-2022 Episodic Unclassified (8 sources) Patient encounter status; Translations: [Screening for lipid disorders] Onset: 10-30-2018 Resolved: 01-12-2019 01-12-2019 Unclassified (1 source) Poisoning by fentanyl or fentanyl analogs, accidental (unintentional), initial encounter; Translations: [Poisoning by fentanyl or fentanyl analogs, accidental (unintentional), initial encounter] Onset: 05-11-2024 Urinary tract infections (2 sources) Urinary tract infection, site not specified; Translations: [Urinary tract infection, site not specified] Onset: 01-11-2024 Episodic Results Test Name Value Interpretation Reference Range Facility Hepatitis A AB, Totalon - HEPATITIS A,TOT [facility] Comment on above: Result Comment: TEST RESULTS LIMITS Hep A Ab, Total Negative Negative Comment: The HAV total antibody assay detects both IgG and IgM but does not differentiate between them. A negative result suggests susceptibility to infection. A positive result could be due to vaccination, previously resolved infection or active infection. Testing for HAV IgM should be performed if active HAV infection is suspected. [facility] offers profiles that will automatically reflex positive HAV total antibody results to IgM (e.g., panel #[id number] HAV Antibody w/ Rfx). TESTING PERFORMED AT [facility]. ORIGINAL REPORT ON FILE IN LAB CONTAINS ADDITIONAL TEST SITE INFORMATION. Performed By: #### L 3890.6006, L503.0106, L506.1001, L500.4050, L7000.7000, L500.4100, L3890.6102, L7000.8000, L3890.6202, L300.3900, L100.0500, L3100.0300, L3410.9992 #### [facility] [address] [place], [place], [id number] Hepatitis C Genotypeon 03-28 HEP C GENOTYPE Normal [facility] Comment on above: Result Comment: TEST RESULTS LIMITS Hepatitis C Genotype, This sample had sufficient HCV RNA as determined by quantitative methods, but unable to determine the genotype on repeated attempts TESTING PERFORMED AT [facility]. ORIGINAL REPORT ON FILE IN LAB CONTAINS ADDITIONAL TEST SITE INFORMATION. Performed By: #### L 3890.6006, L503.0106, L506.1001, L500.4050, L7000.7000, L500.4100, L3890.6102, L7000.8000, L3890.6202, L300.3900, L100.0500, L3100.0300, L3410.9992 #### [facility] [address] 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 TESTING PERFORMED AT [facility]. ORIGINAL REPORT ON FILE IN LAB CONTAINS ADDITIONAL TEST SITE INFORMATION. Performed By: #### L 3890.6006, L503.0106, L506.1001, L500.4050, L7000.7000, L500.4100, L3890.6102, L7000.8000, L3890.6202, L300.3900, L100.0500, L3100.0300, L3410.9992 #### [facility] [address] [place], [address] [id number] 02-18-2025 [facility]. COMMENT Normal . [facility] Comment on above: Order Comment: [id number] 3 HEP C FIBROSURE TIGER RMT Result Comment: Test Ordered: [id number] HCV FibroSure Fibrosis Score 0.10 BN Reference Range: 0.00-0.21 Fibrosis Stage Comment BN Reference Range: . F0 - No fibrosis Necroinflammat Activity Score 0.15 BN Reference Range: 0.00-0.17 Necroinflammat Activity Grade Note: BN A0-No activity Reference Range: . Methodology: Comment BN Reference Range: . The analytes tested are performed by FibroSure-Specific methods. Not intended for use with other diagnostic considerations. Alpha 2-Macroglobulins, Qn 192 mg/dL BN Reference Range: 110-276 Haptoglobin 124 mg/dL BN Reference Range: 33-278 Apolipoprotein A-1 145 mg/dL BN Reference Range: 116-209 Bilirubin, Total 0.4 mg/dL BN Reference Range: 0.0-1.2 GGT 30 IU/L BN Reference Range: 0-60 ALT (SGPT) P5P 37 IU/L BN Reference Range: 0-40 Interpretations: Comment BN Reference Range: . Quantitative results of 6 biochemical tests are analyzed using a computational algorithm to provide a quantitative surrogate marker (0.0-1.0) for liver fibrosis (METAVIR F0- F4) and for necroinflammatory activity (METAVIR A0-A3). Fibrosis Scoring: Comment Reference Range: . <=0.21 = Stage F0 - No fibrosis 0.21 - 0.27 = Stage F0 - F1 0.27 - 0.31 = Stage F1 - Portal fibrosis 0.31 - 0.48 = Stage F1 - F2 0.48 - 0.58 = Stage F2 - Bridging fibrosis with few septa 0.58 - 0.72 = Stage F3 - Bridging fibrosis with many septa 0.72 - 0.74 = Stage F3 - F4 >0.74 = Stage F4 - Cirrhosis Necroinflamm Activity Scoring: Comment Reference Range: . <0.17 = Grade A0 - No Activity 0.17 - 0.29 = Grade A0 - A1 0.29 - 0.36 = Grade A1 - Minimal activity 0.36 - 0.52 = Grade A1 - A2 0.52 - 0.60 = Grade A2 - Moderate activity 0.60 - 0.62 = Grade A2 - A3 >0.62 = Grade A3 - Severe activity Limitations: Comment Reference Range: . The negative predictive value of a Fibrotest score <0.31 (absence of clinically significant fibrosis) was 85% when compared to liver biopsy in 1,270 HCV infected patients with a 38% prevalence of significant liver fibrosis (F2, 3 or 4). The positive predictive value of a Fibro-test score >0.48 (F2, 3, 4) was 61% in that same patient cohort. HCV FibroSURE is not recommended in patients with Gilbert Disease, acute hemolysis (e.g. HCV ribavirin therapy mediated hemolysis) acute hepa-titis of the liver, extra- hepatic cholestasis, transplant patients, and/or renal insufficiency patients. Any of these clinical situations may lead to inaccurate quantitative predictions of fibrosis and necroinflammatory activity in the liver. Comment: Comment Reference Range: . This test was developed and its performance characteristics determined by [employer]. It has not been cleared or approved by the Food and Drug Administration. The FDA has determined that such clearance or approval is not necessary. For questions regarding this report please contact customer service at . Performed at: [facility] [employer] [id number] Advertising Sales Executive: Mell Domingo MD, Phone: [phone] Performed at: [address] [id number] Advertising Sales Executive: Micha Neri PhD, Phone: [phone] Performed By: #### L 3890.6006, L503.0106, L506.1001, L500.4050, L7000.7000, L500.4100, L3890.6102, L7000.8000, L3890.6202, L300.3900, L100.0500, L3100.0300, L3410.9992 #### [facility] [address] [facility] [place], [address] CBC-Complete Blood Cnt No Di ffon 02-15-2025 Erythrocyte distribution width (RBC) [Ratio] 13.5 % Normal 11.6-14.6 [facility] Comment on above: Performed By: #### L 3890.6006, L503.0106, L506.1001, L500.4050, L7000.7000, L500.4100, L3890.6102, L7000.8000, L3890.6202, L300.3900, L100.0500, L3100.0300, L3410.9992 #### [facility] [address] [place], [address] Hematocrit (Bld) [Volume fraction] 34.1 % Low 37-47 [facility] Comment on above: Performed By: #### L 3890.6006, L503.0106, L506.1001, L500.4050, L7000.7000, L500.4100, L3890.6102, L7000.8000, L3890.6202, L300.3900, L100.0500, L3100.0300, L3410.9992 #### [facility] [address] [facility] [place], [address] Hemoglobin (Bld) [Mass/Vol] 11.5 g/dL Low 12.0-15.0 [facility] Comment on above: Performed By: #### L 3890.6006, L503.0106, L506.1001, L500.4050, L7000.7000, L500.4100, L3890.6102, L7000.8000, L3890.6202, L300.3900, L100.0500, L3100.0300, L3410.9992 #### [facility] [address] [place], [address] MCH (RBC) [Entitic mass] 26.7 pg Low 27.0-32.0 [facility] Comment on above: Performed By: #### L 3890.6006, L503.0106, L506.1001, L500.4050, L7000.7000, L500.4100, L3890.6102, L7000.8000, L3890.6202, L300.3900, L100.0500, L3100.0300, L3410.9992 #### [facility] [address] [place], [place], [phone] (492) MCHC (RBC) [Mass/Vol] 33.7 g/dL Normal 32-36 [facility] Comment on above: Performed By: #### L 3890.6006, L503.0106, L506.1001, L500.4050, L7000.7000, L500.4100, L3890.6102, L7000.8000, L3890.6202, L300.3900, L100.0500, L3100.0300, L3410.9992 #### [facility] [address] [place], [address] MCV (RBC) [Entitic vol] 79.1 fL Low 81-99 [facility] Comment on above: Performed By: #### L 3890.6006, L503.0106, L506.1001, L500.4050, L7000.7000, L500.4100, L3890.6102, L7000.8000, L3890.6202, L300.3900, L100.0500, L3100.0300, L3410.9992 #### [facility] [address] [place], [address] Platelet mean volume (Bld) [Entitic vol] 11.0 fL Normal 6.2-12.0 [facility] Comment on above: Performed By: #### L 3890.6006, L503.0106, L506.1001, L500.4050, L7000.7000, L500.4100, L3890.6102, L7000.8000, L3890.6202, L300.3900, L100.0500, L3100.0300, L3410.9992 #### [facility] [address] [place], [address] Platelets (Bld) [#/Vol] 231 10*3/uL Normal 150-450 [facility] Comment on above: Performed By: #### L 3890.6006, L503.0106, L506.1001, L500.4050, L7000.7000, L500.4100, L3890.6102, L7000.8000, L3890.6202, L300.3900, L100.0500, L3100.0300, L3410.9992 #### [facility] [address] [place], [address] (845) RBC (Bld) [#/Vol] 4.31 10*6/uL Normal 4.2-5.4 [facility] Comment on above: Performed By: #### L 3890.6006, L503.0106, L506.1001, L500.4050, L7000.7000, L500.4100, L3890.6102, L7000.8000, L3890.6202, L300.3900, L100.0500, L3100.0300, L3410.9992 #### [facility] [address] [place], [address] RDW SD 38.9 fl Normal 35.1-43.9 [facility] Comment on above: Performed By: #### L 3890.6006, L503.0106, L506.1001, L500.4050, L7000.7000, L500.4100, L3890.6102, L7000.8000, L3890.6202, L300.3900, L100.0500, L3100.0300, L3410.9992 #### [facility] [address] [place], [address] WBC (Bld) [#/Vol] 5.8 10*3/uL Normal 4.4-11.0 [facility] Comment on above: Performed By: #### L 3890.6006, L503.0106, L506.1001, L500.4050, L7000.7000, L500.4100, L3890.6102, L7000.8000, L3890.6202, L300.3900, L100.0500, L3100.0300, L3410.9992 #### [facility] [address] [facility] [place], [address] Comprehensive Metabolic Prof ilon 02-15-2025 Albumin [Mass/Vol] 4.1 g/dL Normal 3.5-5.0 [facility] Comment on above: Performed By: #### L 3890.6006, L503.0106, L506.1001, L500.4050, L7000.7000, L500.4100, L3890.6102, L7000.8000, L3890.6202, L300.3900, L100.0500, L3100.0300, L3410.9992 #### [facility] [address] [facility] [place], [place], [id number] ALK PHOS 72 U/L Normal 35-104 [facility] Comment on above: Performed By: #### L 3890.6006, L503.0106, L506.1001, L500.4050, L7000.7000, L500.4100, L3890.6102, L7000.8000, L3890.6202, L300.3900, L100.0500, L3100.0300, L3410.9992 #### [facility] [address] [place], [address] ALT [Catalytic activity/Vol] 35 U/L Normal <=34 [facility] Comment on above: Performed By: #### L 3890.6006, L503.0106, L506.1001, L500.4050, L7000.7000, L500.4100, L3890.6102, L7000.8000, L3890.6202, L300.3900, L100.0500, L3100.0300, L3410.9992 #### [facility] [address] [place], [address] AST [Catalytic activity/Vol] 22 U/L Normal <=31 [facility] Comment on above: Performed By: #### L 3890.6006, L503.0106, L506.1001, L500.4050, L7000.7000, L500.4100, L3890.6102, L7000.8000, L3890.6202, L300.3900, L100.0500, L3100.0300, L3410.9992 #### [facility] [address] [place], [address] Bilirubin [Mass/Vol] 0.54 mg/dL Normal 0.00-1.30 [facility] Comment on above: Performed By: #### L 3890.6006, L503.0106, L506.1001, L500.4050, L7000.7000, L500.4100, L3890.6102, L7000.8000, L3890.6202, L300.3900, L100.0500, L3100.0300, L3410.9992 #### [facility] [address] [place], [place], [phone] (820) BUN/CRE 19.9 RATIO Normal 10-20 [facility] Comment on above: Performed By: #### L 3890.6006, L503.0106, L506.1001, L500.4050, L7000.7000, L500.4100, L3890.6102, L7000.8000, L3890.6202, L300.3900, L100.0500, L3100.0300, L3410.9992 #### [facility] [address] [place], [place], [phone] (018) Calcium [Mass/Vol] 9.9 mg/dL Normal 7.6-11.0 [facility] Comment on above: Performed By: #### L 3890.6006, L503.0106, L506.1001, L500.4050, L7000.7000, L500.4100, L3890.6102, L7000.8000, L3890.6202, L300.3900, L100.0500, L3100.0300, L3410.9992 #### [facility] [address] [place], [place], [phone] (624) Chloride [Moles/Vol] 104 mmol/L Normal 98-108 [facility] Comment on above: Performed By: #### L 3890.6006, L503.0106, L506.1001, L500.4050, L7000.7000, L500.4100, L3890.6102, L7000.8000, L3890.6202, L300.3900, L100.0500, L3100.0300, L3410.9992 #### [facility] [address] [place], [address] CO2 [Moles/Vol] 21.4 mmol/L Normal 21.0-32.0 [facility] Comment on above: Performed By: #### L 3890.6006, L503.0106, L506.1001, L500.4050, L7000.7000, L500.4100, L3890.6102, L7000.8000, L3890.6202, L300.3900, L100.0500, L3100.0300, L3410.9992 #### [facility] [address] [facility] [place], [address] Creatinine [Mass/Vol] 0.63 mg/dL Low 0.70-1.20 [facility] Comment on above: Performed By: #### L 3890.6006, L503.0106, L506.1001, L500.4050, L7000.7000, L500.4100, L3890.6102, L7000.8000, L3890.6202, L300.3900, L100.0500, L3100.0300, L3410.9992 #### [facility] [address] [place], [address] GAP 11 Normal 5-15 [facility] Comment on above: Performed By: #### L 3890.6006, L503.0106, L506.1001, L500.4050, L7000.7000, L500.4100, L3890.6102, L7000.8000, L3890.6202, L300.3900, L100.0500, L3100.0300, L3410.9992 #### [facility] [address] [place], [address] GFR/1.73 sq M.predicted among non-blacks MDRD (S/P/Bld) [Vol rate/Area] 121 mL/min/{1.73_m2} Normal >60 [facility] Comment on above: Result Comment: mL/m in/1.73m2 CKD-EPI Creatinine Equation (2020) Performed By: #### L 3890.6006, L503.0106, L506.1001, L500.4050, L7000.7000, L500.4100, L3890.6102, L7000.8000, L3890.6202, L300.3900, L100.0500, L3100.0300, L3410.9992 #### [facility] [address] [place], [place], [phone] (069) Glucose [Mass/Vol] 87 mg/dL Normal 70-99 [facility] Comment on above: Performed By: #### L 3890.6006, L503.0106, L506.1001, L500.4050, L7000.7000, L500.4100, L3890.6102, L7000.8000, L3890.6202, L300.3900, L100.0500, L3100.0300, L3410.9992 #### [facility] [address] [facility] [place], [place], [phone] (599) Potassium [Moles/Vol] 4.0 mmol/L Normal 3.3-5.1 [facility] Comment on above: Performed By: #### L 3890.6006, L503.0106, L506.1001, L500.4050, L7000.7000, L500.4100, L3890.6102, L7000.8000, L3890.6202, L300.3900, L100.0500, L3100.0300, L3410.9992 #### [facility] [address] [place], [place], [phone] Sodium [Moles/Vol] 136 mmol/L Normal 133-145 [facility] Comment on above: Performed By: #### L 3890.6006, L503.0106, L506.1001, L500.4050, L7000.7000, L500.4100, L3890.6102, L7000.8000, L3890.6202, L300.3900, L100.0500, L3100.0300, L3410.9992 #### [facility] [address] [facility]. [place], [place], [id number] T PROT 7.9 g/dL Normal 5.9-8.4 [facility] Comment on above: Performed By: #### L 3890.6006, L503.0106, L506.1001, L500.4050, L7000.7000, L500.4100, L3890.6102, L7000.8000, L3890.6202, L300.3900, L100.0500, L3100.0300, L3410.9992 #### [facility] [address] [place], [place], [id number] Urea nitrogen [Mass/Vol] 13 mg/dL Normal 4-19 [facility] Comment on above: Performed By: #### L 3890.6006, L503.0106, L506.1001, L500.4050, L7000.7000, L500.4100, L3890.6102, L7000.8000, L3890.6202, L300.3900, L100.0500, L3100.0300, L3410.9992 #### [facility] [address] [place], [place], [id number] HIVon 02-15-2025 HIV Non-Reactive Normal Nonreactive [facility] Comment on above: Result Comment: Non- Reactive Reactive Repeatedly reactive samples must be confirmed according to CDC recommended confirmatory algorithms. The subresults for either HIVAG or AHIV can be used as an aid in the selection of the confirmation algorithm for reactive samples. Send out specimens with Reactive results to [facility] for confirmation. Order the HIV antibody detection and differentiation: [id number] Performed By: #### L 3890.6006, L503.0106, L506.1001, L500.4050, L7000.7000, L500.4100, L3890.6102, L7000.8000, L3890.6202, L300.3900, L100.0500, L3100.0300, L3410.9992 #### [facility] [address], [place], [address] Hepatitis B Surface Antibody on 02-15-2025 HEP B Surf Ab REAC Normal [facility] Comment on above: Result Comment: <8.5 mIU/mL: Non-Reactive 8.5<= x <11.5 mIU/mL: Indeterminate >=11.5 mIU/mL: Reactive Non Reactive: Inconsistent with immunity less than <10 mIU/mL Reactive: Consistent with immunity greater than or equal to 10 mIU/mL Performed By: #### L 3890.6006, L503.0106, L506.1001, L500.4050, L7000.7000, L500.4100, L3890.6102, L7000.8000, L3890.6202, L300.3900, L100.0500, L3100.0300, L3410.9992 #### [facility] [address] [place], [place], [id number] L3890.6102on 02-15-2025 HEP B Surf Ag Non-Reactive Normal Nonreactive [facility] Comment on above: Result Comment: Reac tive: Presumptive evidence of HBV. Repeatedly reactive samples must be confirmed using a neutralization test (ElecVolexs HBsAg Confirmatory Test) Non-Reactive: HBsAg not detected; does not exclude the possibility of exposure to HBV Performed By: #### L 3890.6006, L503.0106, L506.1001, L500.4050, L7000.7000, L500.4100, L3890.6102, L7000.8000, L3890.6202, L300.3900, L100.0500, L3100.0300, L3410.9992 #### [facility] [address], [place], [id number] Lipid Profileon 02-15-2025 CHOL:HDL 1.52 Normal [facility] Comment on above: Performed By: #### L 3890.6006, L503.0106, L506.1001, L500.4050, L7000.7000, L500.4100, L3890.6102, L7000.8000, L3890.6202, L300.3900, L100.0500, L3100.0300, L3410.9992 #### [facility] [address] [place], [place], [id number] (559) Cholesterol [Mass/Vol] 92 mg/dL Normal <=200 [facility] Comment on above: Result Comment: Chol esterol level, Desirable <200 mg/dL Borderline high cholesterol 200-239 mg/dL High cholesterol >=240 mg/dL Recommendations of the NCEP Adult Treatment Panel for the following risk-cutoff thresholds for the [place] population. Performed By: #### L 3890.6006, L503.0106, L506.1001, L500.4050, L7000.7000, L500.4100, L3890.6102, L7000.8000, L3890.6202, L300.3900, L100.0500, L3100.0300, L3410.9992 #### [facility] [address] [place], [address] (410) Cholesterol in HDL [Mass/Vol] 60 mg/dL Normal [facility] Comment on above: Result Comment: Sarah onal Cholesterol Education Program (NCEP) guidelines: <40 mg/dL: Low HDL-cholesterol (major risk factor for CHD) >= 60 mg/dL: High HDL-cholesterol (negative risk factor for CHD) HDL-cholesterol is affected by a number of factors, e.g. smoking, exercise, hormones, sex and age. Performed By: #### L 3890.6006, L503.0106, L506.1001, L500.4050, L7000.7000, L500.4100, L3890.6102, L7000.8000, L3890.6202, L300.3900, L100.0500, L3100.0300, L3410.9992 #### [facility] [address] [place], [address] (019) Cholesterol in LDL [Mass/Vol] 24 mg/dL Normal [facility] Comment on above: Result Comment: Bord xzwkxh=464-961 mg/dL Higher Jphs=768 mg/dL or greater Performed By: #### L 3890.6006, L503.0106, L506.1001, L500.4050, L7000.7000, L500.4100, L3890.6102, L7000.8000, L3890.6202, L300.3900, L100.0500, L3100.0300, L3410.9992 #### [facility] [address] [place], [address] Cholesterol in VLDL [Mass/Vol] 7 mg/dL Normal 5-40 [facility] Comment on above: Performed By: #### L 3890.6006, L503.0106, L506.1001, L500.4050, L7000.7000, L500.4100, L3890.6102, L7000.8000, L3890.6202, L300.3900, L100.0500, L3100.0300, L3410.9992 #### [facility] [address] [place], [address] Triglyceride [Mass/Vol] 36 mg/dL Normal [facility] Comment on above: Result Comment: The drugs N-Acetylcysteine and Metamizole may falsely depress this assay. Normal range: <150 mg/dL Borderline High: 150-199 mg/dL High: 200-499 mg/dL Very High: >500 mg/dL Performed By: #### L 3890.6006, L503.0106, L506.1001, L500.4050, L7000.7000, L500.4100, L3890.6102, L7000.8000, L3890.6202, L300.3900, L100.0500, L3100.0300, L3410.9992 #### [facility] [address] [place], [address] Prothrombin Time w/INRon INR Coag (PPP) [Relative time] 1.0 {INR} Normal [facility] Comment on above: Performed By: #### L 3890.6006, L503.0106, L506.1001, L500.4050, L7000.7000, L500.4100, L3890.6102, L7000.8000, L3890.6202, L300.3900, L100.0500, L3100.0300, L3410.9992 #### [facility] [address] [place], [place], [id number] PT Coag (PPP) [Time] 13.4 s Normal 11.7-14.9 [facility] Comment on above: Performed By: #### L 3890.6006, L503.0106, L506.1001, L500.4050, L7000.7000, L500.4100, L3890.6102, L7000.8000, L3890.6202, L300.3900, L100.0500, L3100.0300, L3410.9992 #### [facility] [address] [place], [address] Vitamin B12on 02-15-2025 Cobalamin (Vitamin B12) [Mass/Vol] 463 pg/mL Normal 180-914 [facility] Comment on above: Performed By: #### L 3890.6006, L503.0106, L506.1001, L500.4050, L7000.7000, L500.4100, L3890.6102, L7000.8000, L3890.6202, L300.3900, L100.0500, L3100.0300, L3410.9992 #### [facility] [address] [place], [place], [address] Vitamin D,25 Hydroxyon 02-15 Vitamin D 25-OH 24.4 ng/mL Low 30-100 [facility] Comment on above: Result Comment: Anna min D Status Deficiency: <20 ng/mL (50nmol/L) Insufficiency: 20-30 ng/mL (50-75 nmol/L) Sufficiency: 30-100 ng/mL (75-250 nmol/L) Toxicity: >100 ng/mL (>250 nmol/L) Performed By: #### L 3890.6006, L503.0106, L506.1001, L500.4050, L7000.7000, L500.4100, L3890.6102, L7000.8000, L3890.6202, L300.3900, L100.0500, L3100.0300, L3410.9992 #### [facility] [address] [place], [place], [address] Hepatitis A AB, Totalon 12-29 HEPATITIS A,TOT Negative Normal Negative [facility] Comment on above: Order Comment: Test( s) 349435-Ejeprqffr C Genotypewas developed and its performance characteristicsdetermined by [facility]. It has not been cleared or approvedby the Food and Drug Administration. Result Comment: Comm ent: The HAV total antibody assay detects both IgG and IgM but does not differentiate between them. A negative result suggests susceptibility to infection. A positive result could be due to vaccination, previously resolved infection or active infection. Testing for HAV IgM should be performed if active HAV infection is suspected. [facility] offers profiles that will automatically reflex positive HAV total antibody results to IgM (e.g., panel #[id number] HAV Antibody w/ Rfx). Performed at: [address] [id number] Advertising Sales Executive: Mell Domingo MD, Phone: [phone] Performed at: [address] [id number] Advertising Sales Executive: Micha Neri PhD, Phone: [phone] Performed By: #### L 3890.6006, L503.0106, L506.1001, L500.4050, L7000.7000, L500.4100, L3890.6102, L7000.8000, L3890.6202, L300.3900, L100.0500, L3100.0300, L3410.9992 #### [facility] [address] [place], [address] Hepatitis C Genotypeon 01-25 HEP C GENOTYPE 3 Normal . [facility] Comment on above: Order Comment: Test( s) 451626-Glpczkzln C Genotypewas developed and its performance characteristicsdetermined by [facility]. It has not been cleared or approvedby the Food and Drug Administration. Performed By: #### L 3890.6006, L503.0106, L506.1001, L500.4050, L7000.7000, L500.4100, L3890.6102, L7000.8000, L3890.6202, L300.3900, L100.0500, L3100.0300, L3410.9992 #### [facility] [address] 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 [facility] Comment on above: Order Comment: Test( s) 356402-Gfjtykwoa C Genotypewas developed and its performance characteristicsdetermined by [employer]. It has not been cleared or approvedby the Food and Drug Administration. Result Comment: Resu lt Units: log10 IU/mL Performed By: #### L 3890.6006, L503.0106, L506.1001, L500.4050, L7000.7000, L500.4100, L3890.6102, L7000.8000, L3890.6202, L300.3900, L100.0500, L3100.0300, L3410.9992 #### [facility] [address] [place], [address] HCV QT RNA PCR 651295 IU/mL Normal . [facility] Comment on above: Order Comment: Test( s) 614399-Dsnyrdmaa C Genotypewas developed and its performance characteristicsdetermined by [employer]. It has not been cleared or approvedby the Food and Drug Administration. Performed By: #### L 3890.6006, L503.0106, L506.1001, L500.4050, L7000.7000, L500.4100, L3890.6102, L7000.8000, L3890.6202, L300.3900, L100.0500, L3100.0300, L3410.9992 #### [facility] [address] [place], [address] TEST INFO: Comment Normal . [facility] Comment on above: Order Comment: Test( s) 541984-Zrewfcfyw C Genotypewas developed and its performance characteristicsdetermined by [employer]. It has not been cleared or approvedby the Food and Drug Administration. Result Comment: The quantitative range of this assay is 15 IU/mL to 100 million IU/mL. Performed By: #### L 3890.6006, L503.0106, L506.1001, L500.4050, L7000.7000, L500.4100, L3890.6102, L7000.8000, L3890.6202, L300.3900, L100.0500, L3100.0300, L3410.9992 #### [facility] [address] [facility] [place], [address] Comprehensive Metabolic Prof ilon 01-18-2025 Albumin [Mass/Vol] 4.2 g/dL Normal 3.5-5.0 [facility] Comment on above: Performed By: #### L 3890.6006, L503.0106, L506.1001, L500.4050, L7000.7000, L500.4100, L3890.6102, L7000.8000, L3890.6202, L300.3900, L100.0500, L3100.0300, L3410.9992 #### [facility] [address] [place], [address] Albumin/Globulin [Mass ratio] 1.2 {ratio} Normal 0.9-2.4 [facility] Comment on above: Performed By: #### L 3890.6006, L503.0106, L506.1001, L500.4050, L7000.7000, L500.4100, L3890.6102, L7000.8000, L3890.6202, L300.3900, L100.0500, L3100.0300, L3410.9992 #### [facility] [address] [place], [place], [id number] ALK PHOS 75 U/L Normal 35-104 [facility] Comment on above: Performed By: #### L 3890.6006, L503.0106, L506.1001, L500.4050, L7000.7000, L500.4100, L3890.6102, L7000.8000, L3890.6202, L300.3900, L100.0500, L3100.0300, L3410.9992 #### [facility] [address] [place], [place], [id number] ALT [Catalytic activity/Vol] 45 U/L High <=34 [facility] Comment on above: Performed By: #### L 3890.6006, L503.0106, L506.1001, L500.4050, L7000.7000, L500.4100, L3890.6102, L7000.8000, L3890.6202, L300.3900, L100.0500, L3100.0300, L3410.9992 #### [facility] [address] [place], [address] AST [Catalytic activity/Vol] 33 U/L High <=31 [facility] Comment on above: Performed By: #### L 3890.6006, L503.0106, L506.1001, L500.4050, L7000.7000, L500.4100, L3890.6102, L7000.8000, L3890.6202, L300.3900, L100.0500, L3100.0300, L3410.9992 #### [facility] [address] [place], [place], [id number] (276) Bilirubin [Mass/Vol] 0.38 mg/dL Normal 0.00-1.30 [facility] Comment on above: Performed By: #### L 3890.6006, L503.0106, L506.1001, L500.4050, L7000.7000, L500.4100, L3890.6102, L7000.8000, L3890.6202, L300.3900, L100.0500, L3100.0300, L3410.9992 #### [facility] [address] [place], [place], [id number] (389) BUN/CRE 15.5 RATIO Normal 10-20 [facility] Comment on above: Performed By: #### L 3890.6006, L503.0106, L506.1001, L500.4050, L7000.7000, L500.4100, L3890.6102, L7000.8000, L3890.6202, L300.3900, L100.0500, L3100.0300, L3410.9992 #### [facility] [address] [place], [place], [id number] (079) Calcium [Mass/Vol] 9.2 mg/dL Normal 7.6-11.0 [facility] Comment on above: Performed By: #### L 3890.6006, L503.0106, L506.1001, L500.4050, L7000.7000, L500.4100, L3890.6102, L7000.8000, L3890.6202, L300.3900, L100.0500, L3100.0300, L3410.9992 #### [facility] [address] [place], [place], [id number] (112) Chloride [Moles/Vol] 104 mmol/L Normal 98-108 [facility] Comment on above: Performed By: #### L 3890.6006, L503.0106, L506.1001, L500.4050, L7000.7000, L500.4100, L3890.6102, L7000.8000, L3890.6202, L300.3900, L100.0500, L3100.0300, L3410.9992 #### [facility] [address] [place], [place], [address] CO2 [Moles/Vol] 21.9 mmol/L Normal 21.0-32.0 [facility] Comment on above: Performed By: #### L 3890.6006, L503.0106, L506.1001, L500.4050, L7000.7000, L500.4100, L3890.6102, L7000.8000, L3890.6202, L300.3900, L100.0500, L3100.0300, L3410.9992 #### [facility] [address] [place], [address] Creatinine [Mass/Vol] 0.63 mg/dL Low 0.70-1.20 [facility] Comment on above: Performed By: #### L 3890.6006, L503.0106, L506.1001, L500.4050, L7000.7000, L500.4100, L3890.6102, L7000.8000, L3890.6202, L300.3900, L100.0500, L3100.0300, L3410.9992 #### [facility] [address] [place], [place], [address] GAP 12 Normal 5-15 [facility] Comment on above: Performed By: #### L 3890.6006, L503.0106, L506.1001, L500.4050, L7000.7000, L500.4100, L3890.6102, L7000.8000, L3890.6202, L300.3900, L100.0500, L3100.0300, L3410.9992 #### [facility] [address] [place], [address] GFR/1.73 sq M.predicted among non-blacks MDRD (S/P/Bld) [Vol rate/Area] 121 mL/min/{1.73_m2} Normal >60 [facility] Comment on above: Result Comment: mL/m in/1.73m2 CKD-EPI Creatinine Equation (2020) Performed By: #### L 3890.6006, L503.0106, L506.1001, L500.4050, L7000.7000, L500.4100, L3890.6102, L7000.8000, L3890.6202, L300.3900, L100.0500, L3100.0300, L3410.9992 #### [facility] [address] [place], [address] Globulin (S) [Mass/Vol] 3.6 g/dL Normal 2.2-4.2 [facility] Comment on above: Performed By: #### L 3890.6006, L503.0106, L506.1001, L500.4050, L7000.7000, L500.4100, L3890.6102, L7000.8000, L3890.6202, L300.3900, L100.0500, L3100.0300, L3410.9992 #### [facility] [address] [facility]. [place], [place], [phone] ([address] Glucose [Mass/Vol] 96 mg/dL Normal 70-99 [facility] Comment on above: Performed By: #### L 3890.6006, L503.0106, L506.1001, L500.4050, L7000.7000, L500.4100, L3890.6102, L7000.8000, L3890.6202, L300.3900, L100.0500, L3100.0300, L3410.9992 #### [facility] [address] [place], [address] Potassium [Moles/Vol] 3.9 mmol/L Normal 3.3-5.1 [facility] Comment on above: Performed By: #### L 3890.6006, L503.0106, L506.1001, L500.4050, L7000.7000, L500.4100, L3890.6102, L7000.8000, L3890.6202, L300.3900, L100.0500, L3100.0300, L3410.9992 #### [facility] [address] [place], [address] Sodium [Moles/Vol] 137 mmol/L Normal 133-145 [facility] Comment on above: Performed By: #### L 3890.6006, L503.0106, L506.1001, L500.4050, L7000.7000, L500.4100, L3890.6102, L7000.8000, L3890.6202, L300.3900, L100.0500, L3100.0300, L3410.9992 #### [facility] [address] [place], [place], [address] T PROT 7.8 g/dL Normal 5.9-8.4 [facility] Comment on above: Performed By: #### L 3890.6006, L503.0106, L506.1001, L500.4050, L7000.7000, L500.4100, L3890.6102, L7000.8000, L3890.6202, L300.3900, L100.0500, L3100.0300, L3410.9992 #### [facility] [address] [place], [place], [phone] (417) Urea nitrogen [Mass/Vol] 10 mg/dL Normal 4-19 [facility] Comment on above: Performed By: #### L 3890.6006, L503.0106, L506.1001, L500.4050, L7000.7000, L500.4100, L3890.6102, L7000.8000, L3890.6202, L300.3900, L100.0500, L3100.0300, L3410.9992 #### [facility] [address] [facility] [place], [address] HIVon 01-18-2025 HIV Non-Reactive Normal Nonreactive [facility] Comment on above: Result Comment: Non- Reactive Reactive Repeatedly reactive samples must be confirmed according to CDC recommended confirmatory algorithms. The subresults for either HIVAG or AHIV can be used as an aid in the selection of the confirmation algorithm for reactive samples. [facility] Order the HIV antibody detection and differentiation: #[id number] Performed By: #### L 3890.6006, L503.0106, L506.1001, L500.4050, L7000.7000, L500.4100, L3890.6102, L7000.8000, L3890.6202, L300.3900, L100.0500, L3100.0300, L3410.9992 #### [facility] [address] [facility] [place], [address] Hemoglobin A1con 01-18-2025 HbA1c (Bld) [Mass fraction] 5.6 % Normal <=5.6 [facility] Comment on above: Result Comment: Norm al < 5.7 % Prediabetic 5.7 - 6.4 % Diabetic >or= 6.5 % Please note range changes. Performed By: #### L 3890.6006, L503.0106, L506.1001, L500.4050, L7000.7000, L500.4100, L3890.6102, L7000.8000, L3890.6202, L300.3900, L100.0500, L3100.0300, L3410.9992 #### [facility] [address] [facility] [place], [address] Hepatitis B Surface Antibody on 01-18-2025 HEP B Surf Ab REAC Normal [facility] Comment on above: Result Comment: <8.5 mIU/mL: Non-Reactive 8.5<= x <11.5 mIU/mL: Indeterminate >=11.5 mIU/mL: Reactive Non Reactive: Inconsistent with immunity less than <10 mIU/mL Reactive: Consistent with immunity greater than or equal to 10 mIU/mL Performed By: #### L 3890.6006, L503.0106, L506.1001, L500.4050, L7000.7000, L500.4100, L3890.6102, L7000.8000, L3890.6202, L300.3900, L100.0500, L3100.0300, L3410.9992 #### [facility] [address] [facility] [place], [address] L3890.6102on 01-18-2025 HEP B Surf Ag Non-Reactive Normal Nonreactive [facility] Comment on above: Result Comment: Reac tive: Presumptive evidence of HBV. Repeatedly reactive samples must be confirmed using a neutralization test (ElecVolexs HBsAg Confirmatory Test) Non-Reactive: HBsAg not detected; does not exclude the possibility of exposure to HBV Performed By: #### L 3890.6006, L503.0106, L506.1001, L500.4050, L7000.7000, L500.4100, L3890.6102, L7000.8000, L3890.6202, L300.3900, L100.0500, L3100.0300, L3410.9992 #### [facility] [address] [facility] [place], [address] Thyroid Stim Hormone (TSH)on 01-18-2025 TSH 4.160 uIU/mL Normal 0.300-4.200 [facility] Comment on above: Performed By: #### L 3890.6006, L503.0106, L506.1001, L500.4050, L7000.7000, L500.4100, L3890.6102, L7000.8000, L3890.6202, L300.3900, L100.0500, L3100.0300, L3410.9992 #### [facility] [address] [place], [address] ALCOHOL, MEDICALon ALCOHOL MEDICAL < Normal <10.0 [facility] Comment on above: Result Comment: Alco hol cutoff: <10.00 mg/dL = None Detected Performed By: #### 4 5033 #### [facility] [address] [place], [place] [address] Jason Rea M.D. [id number] AMMONIAon 05-11-2024 Ammonia (P) [Mass/Vol] ug/dL Low [facility] Ammonia (P) [Mass/Vol] ug/dL Low 9-30 [facility] Comment on above: Performed By: #### N H3 #### Testing performed at [facility] [address] [place] [address] BASIC METABOLIC PANELon 04-29 Anion gap [Moles/Vol] 24 mmol/L High 10-20 [facility] Comment on above: Order Comment: [facility] has implemented the eGFR calculation approach that does not have a coefficient for race that conforms to the NKF-ASN Task Force Recommendations. Performed By: #### 4 6124 #### [facility] [address] [place], [place] [address] Jason Rea M.D. [id number] Calcium [Mass/Vol] 10.5 mg/dL High 8.4-10.2 [facility] Comment on above: Order Comment: [facility] has implemented the eGFR calculation approach that does not have a coefficient for race that conforms to the NKF-ASN Task Force Recommendations. Performed By: #### 4 6124 #### [facility] [address] [place], [place] [address] Jason Rea M.D. [id number] Chloride [Moles/Vol] 98 mmol/L Normal 98-108 [facility] Comment on above: Order Comment: [facility] has implemented the eGFR calculation approach that does not have a coefficient for race that conforms to the NKF-ASN Task Force Recommendations. Performed By: #### 4 6124 #### [facility] [address] [place], [place] [address] Jason Rea M.D. [id number] Creatinine [Mass/Vol] 0.91 mg/dL Normal 0.40-1.10 [facility] Comment on above: Order Comment: [facility] has implemented the eGFR calculation approach that does not have a coefficient for race that conforms to the NKF-ASN Task Force Recommendations. Performed By: #### 4 6124 #### [facility] [address] [place] [address] Jason Rea M.D. [id number] EGFR 86 mL/min/1.73 m2 Normal >=60 [facility] Comment on above: Order Comment: [facility] has implemented the eGFR calculation approach that does not have a coefficient for race that conforms to the NKF-ASN Task Force Recommendations. Result Comment: Janell mated GFR was calculated using the 2020 CKD-EPI creatinine equation. Performed By: #### 4 6124 #### [facility] [address] [place] [id number] Jason Rea M.D. [id number] Glucose [Mass/Vol] 97 mg/dL Normal 65-99 [facility] Comment on above: Order Comment: [facility] has implemented the eGFR calculation approach that does not have a coefficient for race that conforms to the NKF-ASN Task Force Recommendations. Performed By: #### 4 6124 #### [facility] [address] [place] [id number] Jason Rea M.D. [id number] HCO3 (Bld) [Moles/Vol] 19 mmol/L Low 21-32 [facility] Comment on above: Order Comment: [facility] has implemented the eGFR calculation approach that does not have a coefficient for race that conforms to the NKF-ASN Task Force Recommendations. Performed By: #### 4 6124 #### [facility] [address] [place] [id number] Jason Rea M.D. [id number] Potassium [Moles/Vol] 4.3 mmol/L Normal 3.5-5.1 [facility] Comment on above: Order Comment: [facility] has implemented the eGFR calculation approach that does not have a coefficient for race that conforms to the NKF-ASN Task Force Recommendations. Result Comment: Slig htly Hemolyzed Performed By: #### 4 6124 #### [facility] [address] [place] [address] Jason Rea M.D. [id number] Sodium [Moles/Vol] 137 mmol/L Normal 135-145 [facility] Comment on above: Order Comment: [facility] has implemented the eGFR calculation approach that does not have a coefficient for race that conforms to the NKF-ASN Task Force Recommendations. Performed By: #### 4 6124 #### [facility] [address] [place] [address] Jason Rea M.D. [id number] Urea nitrogen [Mass/Vol] 11 mg/dL Normal 8-25 [facility] Comment on above: Order Comment: [facility] has implemented the eGFR calculation approach that does not have a coefficient for race that conforms to the NKF-ASN Task Force Recommendations. Performed By: #### 4 [id number] #### LAB [address] [address] Jason Rea M.D. [id number] Urea nitrogen/Creatini ne [Mass ratio] 12.1 mg/mg Normal 10.0-20.0 [facility] Comment on above: Order Comment: [facility] has implemented the eGFR calculation approach that does not have a coefficient for race that conforms to the NKF-ASN Task Force Recommendations. Performed By: #### 4 [id number] #### [facility] [address] [address] Jason Rea M.D. [id number] CBCon 05-11-2024 ABSOLUTE BAS 0.1 10*3/uL Normal 0.0-0.2 [facility] Comment on above: Performed By: #### A CBC, CMPF, LIPA2 #### Testing performed at [address] [address] ABSOLUTE EOS 0.0 10*3/uL Normal 0.0-0.7 [facility] Comment on above: Performed By: #### A CBC, CMPF, LIPA2 #### Testing performed at [address] [address] ABSOLUTE NEUTROPHIL COUNT 8.9 10*3/uL High 1.4-6.5 [facility] Comment on above: Performed By: #### A CBC, CMPF, LIPA2 #### Testing performed at [address] [address] Basophils/100 WBC (Bld) 0.5 % Normal 0.0-2.0 [facility] Comment on above: Performed By: #### A CBC, CMPF, LIPA2 #### Testing performed at [address] [address] DTYPE AUTO DIFF Normal [facility] Comment on above: Performed By: #### A CBC, CMPF, LIPA2 #### Testing performed at [address] [address] Eosinophils/100 WBC (Bld) 0.0 % Normal 0.0-11.0 [facility] Comment on above: Performed By: #### A CBC, CMPF, LIPA2 #### Testing performed at [address] [address] Lymphocytes (Bld) [#/Vol] 1.7 10*3/uL Normal 1.2-3.4 [facility] Comment on above: Performed By: #### A CBC, CMPF, LIPA2 #### Testing performed at [address] [address] Lymphocytes/100 WBC (Bld) 15.3 % Low 20.0-55.0 [facility] Comment on above: Performed By: #### A CBC, CMPF, LIPA2 #### Testing performed at [address] [address] Monocytes (Bld) [#/Vol] 0.5 10*3/uL Normal 0.0-0.7 [facility] Comment on above: Performed By: #### A CBC, CMPF, LIPA2 #### Testing performed at [address] [address] Monocytes/100 WBC (Bld) 4.8 % Normal 0.0-10.0 [facility] Comment on above: Performed By: #### A CBC, CMPF, LIPA2 #### Testing performed at [address] [address] Neutrophils/100 WBC (Bld) 79.4 % High 37.0-75.0 [facility] Comment on above: Performed By: #### A CBC, CMPF, LIPA2 #### Testing performed at [address] [address] Erythrocyte distribution width (RBC) [Ratio] 17.1 % High 11.5-14.5 [facility] Comment on above: Performed By: #### A CBC, CMPF, LIPA2 #### Testing performed at [address] [address] Hematocrit (Bld) [Volume fraction] 35.5 % Low 36.0-48.0 [facility] Comment on above: Performed By: #### A CBC, CMPF, LIPA2 #### Testing performed at [address] [address] Hemoglobin (Bld) [Mass/Vol] 11.6 g/dL Low 12.0-16.0 [facility] Comment on above: Performed By: #### A CBC, CMPF, LIPA2 #### Testing performed at [address] [address] MCH (RBC) [Entitic mass] 24.5 pg Low 26.0-35.0 [facility] Comment on above: Performed By: #### A CBC, CMPF, LIPA2 #### Testing performed at [address] [address] MCHC (RBC) [Mass/Vol] 32.6 g/dL Normal 27.0-37.0 [facility] Comment on above: Performed By: #### A CBC, CMPF, LIPA2 #### Testing performed at [address] [address] MCV (RBC) [Entitic vol] 75.2 fL Low 80.0-100.0 [facility] Comment on above: Performed By: #### A CBC, CMPF, LIPA2 #### Testing performed at [address] [address] Platelet mean volume (Bld) [Entitic vol] 8.4 fL Normal 7.4-11.0 [facility] Comment on above: Performed By: #### A CBC, CMPF, LIPA2 #### Testing performed at [address] [address] Platelets (Bld) [#/Vol] 311 10*3/uL Normal 130-400 [facility] Comment on above: Performed By: #### A CBC, CMPF, LIPA2 #### Testing performed at [address] [address] RBC (Bld) [#/Vol] 4.71 10*6/uL Normal 4.0-5.4 [facility] Comment on above: Performed By: #### A CBC, CMPF, LIPA2 #### Testing performed at [address] [address] WBC (Bld) [#/Vol] 11.2 10*3/uL High 3.6-11.0 [facility] Comment on above: Performed By: #### A CBC, CMPF, LIPA2 #### Testing performed at [address] [address] CBC WITH AUTO DIFFERENTIALon 05-11-2024 AUTO NRBC 0.0 % Normal [facility] Comment on above: Performed By: #### L [id number] #### LAB [address] [address] Jason Rea M.D. [id number] AUTO NRBC ABS COUNT 0.00 K/mcL Normal 0.00-0.00 [facility] Comment on above: Performed By: #### L [id number] #### LAB [address] [address] Jason Rea M.D. [id number] BASOPHILS ABSOLUTE COUNT 0.04 K/mcL Normal 0.00-0.30 [facility] Comment on above: Performed By: #### L [id number] #### LAB [address] [address] Jason Rea M.D. [id number] Basophils/100 WBC (Bld) 0.5 % Normal [facility] Comment on above: Performed By: #### L [id number] #### LAB [address] [address] Jason Rea M.D. [id number] Eosinophils (Bld) [#/Vol] 0.00 10*3/uL Normal 0.00-0.50 [facility] Comment on above: Performed By: #### L [id number] #### LAB [address] [address] Jason Rea M.D. [id number] Eosinophils/100 WBC (Bld) 0.0 % Normal [facility] Comment on above: Performed By: #### L [id number] #### LAB [address] [address] Jason Rea M.D. [id number] Erythrocyte distribution width (RBC) [Ratio] 15.8 % High 11.6-14.8 [facility] Comment on above: Performed By: #### L [id number] #### LAB [address] [place] [address] Jason Rea M.D. [id number] Hematocrit (Bld) [Volume fraction] 36.8 % Normal 36.0-46.0 [facility] Comment on above: Performed By: #### L [id number] #### LAB [address] [place] [address] Jason Rea M.D. [id number] Hemoglobin (Bld) [Mass/Vol] 12.0 g/dL Normal 12.0-16.0 [facility] Comment on above: Performed By: #### L [id number] #### LAB [address] [place] [address] Jason Rea M.D. [id number] IG ABSOLUTE 0.03 K/mcL Normal 0.00-0.30 [facility] Comment on above: Performed By: #### L [id number] #### LAB [address] [address] Jason Rea M.D. [id number] IG PERCENT 0.40 % Normal [facility] Comment on above: Result Comment: The IG parameter is the percentage of metamyelocytes, myelocytes and promyelocytes. An immature granulocyte count (IG) of 1% or more suggests the possibility of infection, an IG count of 3% is very likely related to an infection. Performed By: #### L [id number] #### LAB [address] [address] Jason Rea M.D. [id number] Lymphocytes (Bld) [#/Vol] 1.06 10*3/uL Normal 0.90-4.00 [facility] Comment on above: Performed By: #### L [id number] #### LAB [address] [address] Jason Rea M.D. [id number] Lymphocytes/100 WBC (Bld) 12.4 % Normal [facility] Comment on above: Performed By: #### L [id number] #### LAB [address] [address] Jason Rea M.D. [id number] MCH (RBC) [Entitic mass] 24.5 pg Low 26.0-34.0 [facility] Comment on above: Performed By: #### L [id number] #### LAB [address] [address] Jason Rea M.D. [id number] MCV (RBC) [Entitic vol] 75.3 fL Low 80.0-100.0 [facility] Comment on above: Performed By: #### L [id number] #### LAB [address] [address] Jason Rea M.D. [id number] MEAN CORPUSCULAR HEMOGLOBIN CONC 32.6 g/dL Normal 31.0-37.0 [facility] Comment on above: Performed By: #### L [id number] #### LAB [address] [address] Jason Rea M.D. [id number] Monocytes (Bld) [#/Vol] 0.48 10*3/uL Normal 0.30-0.90 [facility] Comment on above: Performed By: #### L [id number] #### LAB [address] [address] Jason Rea M.D. [id number] Monocytes/100 WBC (Bld) 5.6 % Normal [facility] Comment on above: Performed By: #### L [id number] #### LAB [address] [address] Jason Rea M.D. [id number] NEUTROPHILS ABSOLUTE COUNT 6.96 K/mcL Normal 1.70-7.00 [facility] Comment on above: Performed By: #### L [id number] #### LAB [address] [address] Jason Rea M.D. [id number] Neutrophils/100 WBC (Bld) 81.1 % Normal [facility] Comment on above: Performed By: #### L [id number] #### LAB [address] [address] Jason Rea M.D. [id number] Platelet mean volume (Bld) [Entitic vol] 10.4 fL Normal 9.4-12.4 [facility] Comment on above: Performed By: #### L [id number] #### MH LAB [address] [address] Jason Rea M.D. [id number] Platelets (Bld) [#/Vol] 293 10*3/uL Normal 150-400 [facility] Comment on above: Performed By: #### L [id number] #### LAB [address] [address] Jason Rea M.D. [id number] RBC (Bld) [#/Vol] 4.89 10*6/uL Normal 4.00-5.20 [facility] Comment on above: Performed By: #### L [id number] #### LAB [address] [place], [place] [address] Jason Rea M.D. [id number] WBC (Bld) [#/Vol] 8.57 10*3/uL Normal 4.50-11.00 [facility] Comment on above: Performed By: #### L [id number] #### LAB [address] [place], [place] [address] Jason Rea M.D. [id number] CBC, EDIF, PLATELETon 2023 ABSOLUTE BASOPHIL COUNT 0.1 10*3/uL 0.0 - 0.2 10*3/uL [facility] Basophils/100 WBC (Bld) 0.5 % 0.0 - 2.0 % [facility] Differential cell count method Nom (Bld) AUTO DIFF % [facility] Eosinophils (Bld) [#/Vol] 0.0 10*3/uL 0.0 - 0.7 10*3/uL [facility] Eosinophils/100 WBC (Bld) 0.0 % 0.0 - 11.0 % [facility] Erythrocyte distribution width (RBC) [Ratio] 17.1 % High 11.5 - 14.5 % [facility] Hematocrit (Bld) [Volume fraction] 35.5 % Low 36.0 - 48.0 % [facility] Hemoglobin (Bld) [Mass/Vol] 11.6 g/dL Low [facility] Interpretation and review of laboratory results Abnormal [facility] Lymphocytes (Bld) [#/Vol] 1.7 10*3/uL 1.2 - 3.4 10*3/uL [facility] Lymphocytes/100 WBC (Bld) 15.3 % Low 20.0 - 55.0 % [facility] MCH (RBC) [Entitic mass] 24.5 pg Low 26.0 - 35.0 PG [facility] MCHC (RBC) [Mass/Vol] 32.6 g/dL [facility] MCV (RBC) [Entitic vol] 75.2 fL Low [facility] Monocytes (Bld) [#/Vol] 0.5 10*3/uL 0.0 - 0.7 10*3/uL [facility] Monocytes/100 WBC (Bld) 4.8 % 0.0 - 10.0 % [facility] Neutrophils (Bld) [#/Vol] 8.9 10*3/uL High 1.4 - 6.5 10*3/uL [facility] Neutrophils/100 WBC (Bld) 79.4 % High 37.0 - 75.0 % [facility] Platelet mean volume (Bld) [Entitic vol] 8.4 fL [facility] Platelets (Bld) [#/Vol] 311 10*3/uL 130 - 400 10*3/uL [facility] RBC (Bld) [#/Vol] 4.71 10*6/uL 4.0 - 5.4 10*6/uL [facility] WBC (Bld) [#/Vol] 11.2 10*3/uL High 3.6 - 11.0 10*3/uL [facility] CMP FASTINGon 05-11-2024 A:G RATIO 1.1 RATIO Normal [facility] Comment on above: Performed By: #### A CBC, CMPF, LIPA2 #### Testing performed at [address] [address] ALBUMIN 4.7 G/dl Normal 3.5-5.0 [facility] Comment on above: Performed By: #### A CBC, CMPF, LIPA2 #### Testing performed at [address] [address] ALP [Catalytic activity/Vol] 87 U/L Normal 38-126 [facility] Comment on above: Performed By: #### A CBC, CMPF, LIPA2 #### Testing performed at [address] [address] ALT [Catalytic activity/Vol] 58 U/L High <35 [facility] Comment on above: Performed By: #### A CBC, CMPF, LIPA2 #### Testing performed at [address] [address] AST [Catalytic activity/Vol] 51 U/L High 14-36 [facility] Comment on above: Performed By: #### A CBC, CMPF, LIPA2 #### Testing performed at [address] [address] Bilirubin [Mass/Vol] 2.2 mg/dL High 0.2-1.3 [facility] Comment on above: Performed By: #### A CBC, CMPF, LIPA2 #### Testing performed at [address] [address] Calcium [Mass/Vol] 9.9 mg/dL Normal 8.4-10.2 [facility] Comment on above: Performed By: #### A CBC, CMPF, LIPA2 #### [place] [address] Chloride [Moles/Vol] 106 mmol/L Normal 98-107 [facility] Comment on above: Result Comment: Dung yu note: Triglyceride levels of 600mg/dL or higher may positively bias chloride results by approximately 2.1 mmol Performed By: #### A CBC, CMPF, LIPA2 #### Testing [place] [address] CO2 [Moles/Vol] 21 mmol/L Low 22-30 [facility] Comment on above: Performed By: #### A CBC, CMPF, LIPA2 #### Testing performed at [address] [address] Creatinine [Mass/Vol] 0.73 mg/dL Normal 0.70-1.20 [facility] Comment on above: Performed By: #### A CBC, CMPF, LIPA2 #### Testing performed at [address] [address] EST. GFR, 119 ml/min/1.73sq.m [facility] Comment on above: Performed By: #### A CBC, CMPF, LIPA2 #### Testing performed at [address] [address] EST. GFR,Non 98 ml/min/1.73sq.m [facility] Comment on above: Performed By: #### A CBC, CMPF, LIPA2 #### Testing performed at [address] [address] GFR Information Average GFR for 30-3 9 years old = 107. 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 Kidney failure, GFR = <15. The GFR estimate is not adjusted for extreme body surface area or acute process, nor has it been validated for women or ethnic groups other than and . Performed By: #### A CBC, CMPF, LIPA2 #### Testing performed at [address] [address] Glucose [Mass/Vol] 103 mg/dL High 70-100 [facility] Comment on above: Result Comment: NORMAL <100 mg/dL PREDIABETES 101-126 mg/dL DIABETES 126 mg/dL or higher Performed By: #### A CBC, CMPF, LIPA2 #### Testing performed at [address] [address] Potassium [Moles/Vol] 3.3 mmol/L Low 3.5-5.1 [facility] Comment on above: Performed By: #### A CBC, CMPF, LIPA2 #### Testing performed at [address] [address] Protein [Mass/Vol] 9.1 g/dL High 6.3-8.2 [facility] Comment on above: Performed By: #### A CBC, CMPF, LIPA2 #### Testing performed at [address] [address] Sodium [Moles/Vol] 138 mmol/L Normal 137-145 [facility] Comment on above: Performed By: #### A CBC, CMPF, LIPA2 #### Testing performed at [address] [address] Urea nitrogen [Mass/Vol] 13 mg/dL Normal 7-20 [facility] Comment on above: Performed By: #### A CBC, CMPF, LIPA2 #### Testing performed at [address] [address] COMPREHENSIVE METABOLIC PANE Gera 05-11-2024 Albumin [Mass/Vol] 4.7 G/dl 3.5 - 5.0 G/dl [facility] Albumin/Globulin [Mass ratio] 1.1 {ratio} RATIO [facility] ALP [Catalytic activity/Vol] 87 U/L [facility] ALT [Catalytic activity/Vol] 58 U/L High NINF [facility] AST [Catalytic activity/Vol] 51 U/L High [facility] Bilirubin [Mass/Vol] 2.2 mg/dL High [facility] Calcium [Mass/Vol] 9.9 mg/dL [facility] Chloride [Moles/Vol] 106 mmol/L [facility] Comment on above: Please note: Triglyc eride levels of 600mg/dL or higher may positively bias chloride results by approximately 2.1 mmol CO2 [Moles/Vol] 21 mmol/L Low [facility] Creatinine [Mass/Vol] 0.73 mg/dL [facility] GFR COMMENT Average GFR for 30-3 9 years old = 107. [facility] Comment on above: Chronic Kidney disea se, GFR = <60. Kidney failure, GFR = <15. The GFR estimate is not adjusted for extreme body surface area or acute process, nor has it been validated for women or ethnic groups other than and . GFR/1.73 sq M.predicted among blacks MDRD (S/P/Bld) [Vol rate/Area] 119 mL/min/{1.73_m2} ml/min/1.73sq .m [facility] GFR/1.73 sq M.predicted among non-blacks MDRD (S/P/Bld) [Vol rate/Area] 98 mL/min/{1.73_m2} ml/min/1.73sq .[facility] Glucose post fast [Mass/Vol] 103 mg/dL [facility] Comment on above: NORMAL <100 mg/dL PREDIABETES 101-126 mg/dL DIABETES 126 mg/dL or higher Potassium [Moles/Vol] 3.3 mmol/L Low [facility] Protein [Mass/Vol] 9.1 g/dL [facility] Sodium [Moles/Vol] 138 mmol/L [facility] Urea nitrogen [Mass/Vol] 13 mg/dL [facility] CT HEAD WITHOUT CONTRASTon 0 05-11-2024 CT HEAD WITHOUT CONTRAST Head CT 05/11/2024 7:46 PM CDT History: Mental status changes. Comparison: None Technique: Unenhanced CT imaging of the head. This CT exam was performed using one or more of the following dose reduction techniques: Automated exposure control, adjustment of the mA and/or KV according to patient size, or use of iterative reconstruction technique. Findings: There is no evidence of acute intracranial abnormality. Specifically, there is no evidence of acute hemorrhage, infarct, contusion, hydrocephalus, midline shift, or abnormal extra-axial collection. The calvarium is intact. The paranasal sinuses and mastoid air cells are clear. Impression: 1. No acute intracranial abnormality. Normal [facility] CT Head WO contraston 2023 Impression: 1. No acute intracranial abnormality. RADIOLOGY Head CT 05/11/2024 7: 46 PM CDT History: Mental status changes. Comparison: None Technique: Unenhanced CT imaging of the head. This CT exam was performed using one or more of the following dose reduction techniques: Automated exposure control, adjustment of the mA and/or KV according to patient size, or use of iterative reconstruction technique. Findings: There is no evidence of acute intracranial abnormality. Specifically, there is no evidence of acute hemorrhage, infarct, contusion, hydrocephalus, midline shift, or abnormal extra-axial collection. The calvarium is intact. The paranasal sinuses and mastoid air cells are clear. RADIOLOGY Bayron Crawford III, MD - 05/11/[address] 05/11/2024 7:46 PM CDT History: Mental status changes. Comparison: None Technique: Unenhanced CT imaging of the head. This CT exam was performed using one or more of the following dose reduction techniques: Automated exposure control, adjustment of the mA and/or KV according to patient size, or use of iterative reconstruction technique. Findings: There is no evidence of acute intracranial abnormality. Specifically, there is no evidence of acute hemorrhage, infarct, contusion, hydrocephalus, midline shift, or abnormal extra-axial collection. The calvarium is intact. The paranasal sinuses and mastoid air cells are clear. IMPRESSION Impression: 1. No acute intracranial abnormality. [facility] Radiology Study observation (narrative) [facility] CT Head WO contrastOrdered B y: Bayron Crawford on 05-11-2024 [facility] ED Prov Noteon 05-11-2024 ED Prov Note [facility] EMERGENCY DEPARTMENT - Emergency Medicine Attending Note: NAME: Yoel Quintanilla 34 y.o. CSN: [id number] PCP: Guerline Harvey CNP History: Chief Complaint: Drug Overdose HPI: The history was obtained from the patient and law enforcement. Yoel is a 34 y.o. female who presents with a chief complaint of Drug Overdose. Drug Overdose Associated symptoms: agitation Associated symptoms: no abdominal pain, no chest pain, no diarrhea, no headaches, no nausea, no shortness of breath and no vomiting Pole Classifier's office reports that the patient was ordered to come here by the court after she showed up high to court today. Per the documentation that accompanies the patient, she tested positive for amphetamines, cocaine, methamphetamines, marijuana, and fentanyl. Patient reports that she last took drugs yesterday. She reports a lot of anxiety and discomfort at this time, denies any chest pain, shortness of breath, dizziness, lightheadedness, syncope, or near syncope. ROS: Review of Systems Constitutional: Negative for activity change, appetite change, fatigue and fever. Eyes: Negative for photophobia, pain, redness and visual disturbance. Respiratory: Negative for apnea, chest tightness, shortness of breath and wheezing. Cardiovascular: Negative for chest pain and palpitations. Gastrointestinal: Negative for abdominal pain, constipation, diarrhea, nausea and vomiting. Genitourinary: Negative for difficulty urinating and hematuria. Skin: Negative for color change. Neurological: Negative for dizziness, syncope, light-headedness, numbness and headaches. Psychiatric/Behavioral: Positive for agitation. The patient is nervous/anxious and is hyperactive. Positives and pertinent negatives as per HPI. All other systems were reviewed and are negative. Physical Exam: Patient Vitals for the past 24 hrs: BP Temp Temp src Pulse Resp SpO2 05/11/24 1654 -- -- -- 92 -- -- 05/11/24 1640 -- 97.8 degrees F (36.6 degrees C) Axillary -- -- -- 05/11/24 1631 124/83 -- -- (!) 107 (!) 26 100 % Physical Exam Constitutional: General: She is not in acute distress. Appearance: She is ill-appearing (Patient is ill-appearing, and fidgety, but in no acute distress.). She is not diaphoretic. HENT: Head: Normocephalic and atraumatic. Right Ear: External ear normal. Left Ear: External ear normal. Eyes: General: No scleral icterus. Neck: Vascular: No JVD. Trachea: No tracheal deviation. Cardiovascular: Rate and Rhythm: Normal rate and regular rhythm. Pulses: Normal pulses. Heart sounds: Normal heart sounds. No murmur heard. No friction rub. No gallop. Pulmonary: Effort: Pulmonary effort is normal. No respiratory distress. Breath sounds: Normal breath sounds. No wheezing or rales. Chest: Chest wall: No tenderness. Abdominal: General: There is no distension. Palpations: Abdomen is soft. There is no mass. Tenderness: There is no abdominal tenderness. There is no rebound. Musculoskeletal: General: No deformity. Skin: General: Skin is warm and dry. Neurological: General: No focal deficit present. Mental Status: She is alert and oriented to person, place, and time. Psychiatric: Mood and Affect: Mood is anxious. Laboratory & Radiological Imaging (if done): Labs Reviewed BASIC METABOLIC PANEL - Abnormal; Notable for the following components: Result Value Bicarbonate 19 (*) Anion Gap 24 (*) Calcium 10.5 (*) All other components within normal limits Narrative: [facility] has implemented the eGFR calculation approach that does not have a coefficient for race that conforms to the NKF-ASN Task Force Recommendations. CBC WITH AUTO DIFFERENTIAL - Abnormal; Notable for the following components: MCV 75.3 (*) MCH 24.5 (*) RDW - CV 15.8 (*) All other components within normal limits ALCOHOL, MEDICAL - Normal CBC AND DIFFERENTIAL Narrative: The following orders were created for panel order CBC w/ Diff. Procedure Abnormality Status --------- ------ CBC Auto Differential[[id number]] Abnormal Final result Please view results for these tests on the individual orders. TROPONIN No orders to display Procedures: EKG 12-lead Date/Time: 05/11/2024 5:17 PM Performed by: Miguel Ángel Woods MD Authorized by: Miguel Ángel Woods MD Interpreted by ED attending physician Rhythm: sinus rhythm BPM: 87 Other findings: prolonged QTc interval Other findings comments: 529 ms Clinical impression: abnormal ECG ED Course / Medical Decision Makin-year-old female, presenting for evaluation of polysubstance intoxication. Patient's drug screen does test positive for amphetamines, cocaine, methamphetamines, marijuana, and fentanyl. She was administered Narcan by EMS, and she has had no further respiratory depression since then. She has been on continuous pulse oxygenation monitor, and has had no hypoxi (more content not included)... Normal [facility] HCG ( test) Ql (U)o n 05-11-2024 [facility] HCG QUALITATIVE, URINEon HCG ( test) Ql (U) Negative NEGATIVE [facility] LIPASEon 05-11-2024 Lipase [Catalytic activity/Vol] 47 U/L 23 - 300 U/L [facility] LIPASE,SERUMon 05-11-2024 LIPASE,SERUM 47 U/L Normal 23-300 [facility] Comment on above: Performed By: #### A CBC, CMPF, LIPA2 #### Testing [place] [address] No Panel Informationon 05-11 Interpretation and review of laboratory results Abnormal [facility] Interpretation and review of laboratory results Abnormal [facility] RAPID TOX SCREEN,URINEon AMPHETAMINE Positive Abnormal NEGATIVE [facility] Comment on above: Result Comment: <500 ng/ml CUTOFF *Unconfirmed Screening Result* Unconfirmed screening results are to be used only for medical treatment purposes. Performed By: #### R TOX, UMAC, UMIC, UHCGT #### Testing performed at [address] [address] BARBITURATES Negative Normal NEGATIVE [facility] Comment on above: Result Comment: <200 ng/ml CUTOFF Performed By: #### R TOX, UMAC, UMIC, UHCGT #### Testing performed at [address] [address] BENZODIAZEPINES Negative Normal NEGATIVE [facility] Comment on above: Result Comment: <200 ng/ml CUTOFF Performed By: #### R TOX, UMAC, UMIC, UHCGT #### Testing performed at [address] [address] BUPRENORPHINE Negative Normal NEGATIVE [facility] Comment on above: Result Comment: <12. 5 ng/ml CUTOFF Performed By: #### R TOX, UMAC, UMIC, UHCGT #### Testing performed at [place] [id number] CANNABINOIDS Positive Abnormal NEGATIVE [facility] Comment on above: Result Comment: <50 ng/ml CUTOFF *Unconfirmed Screening Result* Unconfirmed screening results are to be used only for medical treatment purposes. Performed By: #### R TOX, UMAC, UMIC, UHCGT #### Testing [place] [address] COCAINE Positive Abnormal NEGATIVE [facility] Comment on above: Result Comment: <150 ng/ml CUTOFF *Unconfirmed Screening Result* Unconfirmed screening results are to be used only for medical treatment purposes. Performed By: #### R TOX, UMAC, UMIC, UHCGT #### Testing [place] [address] FENTANYL Positive Abnormal NEGATIVE [facility] Comment on above: Result Comment: 1.0 ng/mL CUTOFF *Unconfirmed Screening Result* Unconfirmed screening results are to be used only for medical treatment purposes. This test has not been approved by the FDA. Performed By: #### R TOX, UMAC, UMIC, UHCGT #### [place] [address] METHADONE Negative Normal NEGATIVE [facility] Comment on above: Result Comment: Meth adone Metabolite <100 ng/ml CUTOFF Performed By: #### R TOX, UMAC, UMIC, UHCGT #### Testing [place] [address] METHAMPHETAMINE Positive Abnormal NEGATIVE [facility] Comment on above: Result Comment: <500 ng/ml CUTOFF *Unconfirmed Screening Result* Unconfirmed screening results are to be used only for medical treatment purposes. Performed By: #### R TOX, UMAC, UMIC, UHCGT #### Testing [place] [address] OPIATES Negative Normal NEGATIVE [facility] Comment on above: Result Comment: <300 ng/ml CUTOFF Performed By: #### R TOX, UMAC, UMIC, UHCGT #### Testing performed at [address] [place] [address] OXYCODONE Negative Normal NEGATIVE [facility] Comment on above: Result Comment: <100 ng/ml CUTOFF Performed By: #### R TOX, UMAC, UMIC, UHCGT #### Testing performed at [address] [address] TRICYCLIC ANTIDEPRESSANTS Negative Normal NEGATIVE [facility] Comment on above: Result Comment: <100 0 ng/ml CUTOFF Performed By: #### R TOX, UMAC, UMIC, UHCGT #### Testing performed at [address] [address] TOXICOLOGY DRUG SCREEN, URIN Jaquan 05-11-2024 Amphetamine (U) [Mass/Vol] Positive Abnormal NEGATIVE NG/ML [facility] Comment on above: <500 ng/ml CUTOFF *Unconfirmed Screening Result* Unconfirmed screening results are to be used only for medical treatment purposes. Barbiturates Screen Ql (U) Negative NEGATIVE NG/ML [employer] [facility] Comment on above: <200 ng/ml CUTOFF Benzodiazepines Ql (U) Negative NEGATIVE NG/ML [facility] [employer] [facility] Comment on above: <200 ng/ml CUTOFF Benzoylecgonine Ql (U) Positive Abnormal NEGATIVE NG/ML [facility] [employer] [facility] Comment on above: <150 ng/ml CUTOFF *Unconfirmed Screening Result* Unconfirmed screening results are to be used only for medical treatment purposes. Buprenorphine Ql (U) Negative NEGATIVE NG/ML [facility] Comment on above: <12.5 ng/ml CUTOFF Cannabinoids Screen Ql (U) Positive Abnormal NEGATIVE NG/ML [employer] [facility] Comment on above: <50 ng/ml CUTOFF *Unconfirmed Screening Result* Unconfirmed screening results are to be used only for medical treatment purposes. Fentanyl Positive Abnormal NEGATIVE NG/ML [facility] Comment on above: 1.0 ng/mL CUTOFF *Unconfirmed Screening Result* Unconfirmed screening results are to be used only for medical treatment purposes. This test has not been approved by the FDA. Interpretation and review of laboratory results Abnormal [employer] [facility] Methadone Screen Ql (U) Negative NEGATIVE NG/ML [employer] [facility] Comment on above: Methadone Metabolite <100 ng/ml CUTOFF Methamphetamine (U) [Mass/Vol] Positive Abnormal NEGATIVE NG/ML [employer] [facility] Comment on above: <500 ng/ml CUTOFF *Unconfirmed Screening Result* Unconfirmed screening results are to be used only for medical treatment purposes. Opiates Screen Ql (U) Negative NEGATIVE NG/ML [facility] Comment on above: <300 ng/ml CUTOFF oxyCODONE Ql (U) Negative NEGATIVE NG/ML [facility] Comment on above: <100 ng/ml CUTOFF Tricyclic antidepressants Screen Ql (U) Negative NEGATIVE NG/ML [facility] Comment on above: <1000 ng/ml CUTOFF [facility] TROPONINon 05-11-2024 BASELINE TROPONIN T NG/L < Normal <=14 [facility] Comment on above: Performed By: #### 4 [id number] #### LAB [address] [place] [address] Jason Rea M.D. [id number] TROPONIN T INTERPRETATION Normal Normal [facility] Comment on above: Performed By: #### 4 6608 #### LAB [address] [place], [place] [address] Jason Rea M.D. [id number] URINALYSIS, MACROon 05-11-20 Bilirubin Ql (U) Negative NEGATIVE [facility] Clarity (U) CLEAR CLEAR [facility] Color (U) YELLOW YELLOW [facility] Glucose Test strip (U) [Mass/Vol] Negative NEGATIVE mg/dl [facility] Hemoglobin Ql (U) Negative NEGATIVE [facility] Ketones (U) [Mass/Vol] 40 mg/dL Abnormal NEGATIVE [facility] Leukocyte esterase Test strip Ql (U) Negative NEGATIVE [facility] Nitrite Ql (U) Negative NEGATIVE [facility] pH (U) 8.5 [pH] High 5.0 - 7.0 [facility] Protein Ql (U) 30 mg/dl Abnormal NEGATIVE [facility] Specific gravity (U) [Rel density] 1.020 1.010 - 1.025 [facility] Urobilinogen (U) [Mass/Vol] 0.2 mg/dL [facility] URINE HCG QUALon 05-11-2024 Beta HCG ( test) Ql (U) Negative Normal NEGATIVE [facility] Comment on above: Performed By: #### R TOX, UMAC, UMIC, UHCGT #### Testing performed at [address] [address] URINE MACROSCOPICon 05-11-20 24 Bilirubin Ql (U) Negative Normal NEGATIVE [facility] Comment on above: Performed By: #### R TOX, UMAC, UMIC, UHCGT #### Testing performed at [address] [address] Clarity (U) CLEAR Normal CLEAR [facility] Comment on above: Performed By: #### R TOX, UMAC, UMIC, UHCGT #### Testing performed at [address] [address] Color (U) YELLOW Normal YELLOW [facility] Comment on above: Performed By: #### R TOX, UMAC, UMIC, UHCGT #### Testing performed at [address] [address] Glucose Ql (U) Negative Normal NEGATIVE [facility] Comment on above: Performed By: #### R TOX, UMAC, UMIC, UHCGT #### Testing performed at [address] [address] pH (U) 8.5 [pH] High 5.0-7.0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 performed by [address] [phone]: [id number] Director: Jason Rea M.D. AST enzyme act/vol 11 U/L Normal 0-45 [facility] Comment on above: Result Comment: This test result might be falsely depressed or falsely elevated onsamples drawn from patients taking Sulfasalazine and Sulfapyridine.Venipuncture should occur prior to taking either of these drugs. Performed By: #### H EPF ####Unless otherwise noted, all testing performed by [address] [phone]: [id number] Director: Jason Rea M.D. Bilirubin mass conc 0.3 mg/dL Normal 0.3-1.2 [facility] Comment on above: Performed By: #### H EPF ####Unless otherwise noted, all testing performed by [address] [phone]: [id number] Director: Jason Rea M.D. Bilirubin.direct mass conc 0.2 mg/dL Normal 0.0-0.4 [facility] Comment on above: Performed By: #### H EPF ####Unless otherwise noted, all testing performed by [address] [phone]: [id number] Director: Jason Rea M.D. Protein mass conc 7.9 g/dL Normal 6.0-8.0 [facility] Comment on above: Performed By: #### H EPF ####Unless otherwise noted, all testing performed by [place] [id number]: [id number] Director: Jason Rea M.D. Chlamydia/GC/Trich Amp RNA U samantha 04-20-2018 Chlamydia trach, Amp RNA Ur Negative Normal Negative [facility] Comment on above: Performed By: #### C HLGCTRU ####Unless otherwise noted, all testing performed by [place] [id number]: [id number] Director: Jason Rea M.D. Neisseria Gonorr, Amp.RNA Ur Negative Normal Negative [facility] Comment on above: Result Comment: Test Performed by [facility] [place] [address] Performed By: #### C HLGCTRU ####Unless otherwise noted, all testing performed by [address] [phone]: [id number] Director: Jason Rea M.D. Trichomonas vag. Amp RNA Ur Positive Abnormal Negative [facility] Comment on above: Result Comment: [place] [address] Performed By: #### C HLGCTRU ####Unless otherwise noted, all testing performed by [address] [phone]: [id number] Director: Jason Rea M.D. Chlamydia/GC Probe (Amp) Uri neon 01-23-2018 Chlamydia trach, Amp RNA Ur Negative Normal Negative [facility] Comment on above: Performed By: #### U A, CHLCRISTINA ####Unless otherwise noted, all testing performed by [place] [phone]: [id number] Director: Jason Rea M.D. Neisseria Gonorr, Amp.RNA Ur Negative Normal Negative [facility] Comment on above: Result Comment: [place] [address] Performed By: #### U A, CHLGCURN ####Unless otherwise noted, all testing performed by [address] [phone]: [id number] Director: Jason Rea M.D. Urinalysison 01-23-2018 Bilirubin, Urine Negative Normal NEG;NEGATIVE [facility] Comment on above: Performed By: #### U A, CHLGCKEHINDE ####Unless otherwise noted, all testing performed by [address] [phone]: [id number] Director: Jason Rea M.D. Blood, Urine Small Abnormal NEG;NEGATIVE [facility] Comment on above: Performed By: #### U A, CHLGCURN ####Unless otherwise noted, all testing performed by [address] [phone]: [id number] Director: Jason Rea M.D. Interpretation and review of laboratory results Abnormal Invalid Interpretation Code [facility] Nitrite, Urine Negative Normal NEG;NEGATIVE [facility] Comment on above: Performed By: #### U A, CHLGCURN ####Unless otherwise noted, all testing performed by [address] [phone]: [id number] Director: Jason Rea M.D. Protein, Urine Negative Normal NEG;NEGATIVE [facility] Comment on above: Performed By: #### U A, CHLGCURN ####Unless otherwise noted, all testing performed by [address] [phone]: [id number] Director: Jason Rea M.D. RBCs, Urine 14 /HPF High 0 - 5 [facility] Squamous Epithelial 2 /HPF Invalid Interpretation Code 0 - 40 [facility] Urine, bacteria in sediment Occasional Abnormal NS;RARE [facility] Comment on above: Performed By: #### U A, CHLGCURN ####Unless otherwise noted, all testing performed by [address] [phone]: [id number] Director: Jason Rea M.D. Urine, character Hazy Invalid Interpretation Code [facility] Urine, color Yellow Normal [facility] Comment on above: Performed By: #### U A, CHLGCURN ####Unless otherwise noted, all testing performed by [address], [place] [phone]: [id number] Director: Jason Rea M.D. Urine, glucose presence Negative Normal NEG;NEGATIVE [facility] Comment on above: Performed By: #### U A, CHLGCURN ####Unless otherwise noted, all testing performed by [address] [phone]: [id number] Director: Jason Rea M.D. Urine, ketones presence Negative Invalid Interpretation Code NEG;NEGATIVE mg/dL [facility] Urine, leukocyte esterase presence Large Abnormal Negative [facility] Urine, pH 6.0 [pH] Normal 4.5-8.0 [facility] Comment on above: Performed By: #### U A, CHLGCURN ####Unless otherwise noted, all testing performed by [address] [phone]: [id number] Director: Jason Rea M.D. Urine, specific gravity 1.013 1 Invalid Interpretation Code 1.003 - 1.029 [facility] Urobilinogen, Urine < 2.0 Normal <2 [facility] Comment on above: Performed By: #### U A, CHLGCURN ####Unless otherwise noted, all testing performed by [address] [phone]: [id number] Director: Jason Rea M.D. WBCs, Urine 81 /HPF High 0 - 5 [facility] Urinalysis, Routineon 2017 Character Hazy Normal [facility] Comment on above: Performed By: #### U A, CHLGCURN ####Unless otherwise noted, all testing performed by [address] [phone]: [id number] Director: Jason Rea M.D. Ketone,Urine Negative Normal NEG;NEGATIVE [facility] Comment on above: Performed By: #### U A, CHLPIPERURN ####Unless otherwise noted, all testing performed by [address] [phone]: [id number] Director: Jason Rea M.D. Leuk.Esterase,Uri ne Large Abnormal Negative [facility] Comment on above: Performed By: #### U A, CHLCRISTINA ####Unless otherwise noted, all testing performed by [place] [phone]: [id number] Director: Jason Rea M.D. RBC,Urine 14 /HPF High 0-5 [facility] Comment on above: Performed By: #### U A, CHLCRISTINA ####Unless otherwise noted, all testing performed by [place] [phone]: [id number] Director: Jason Rea M.D. Specific Mobile,Urine 1.013 Normal 1.003-1.029 [facility] Comment on above: Performed By: #### U A, CHLCRISTINA ####Unless otherwise noted, all testing performed by [place] [id number]: [id number] Director: Jason Rea M.D. Squamous Epithelial 2 /HPF Normal 0-40 [facility] Comment on above: Performed By: #### U A, CHLCRISTINA ####Unless otherwise noted, all testing performed by [address] [phone]: [id number] Director: Jason Rea M.D. WBC,Urine 81 /HPF High 0-5 [facility] Comment on above: Performed By: #### U A, CHLGCURN ####Unless otherwise noted, all testing performed by [address] [phone]: [id number] Director: Jason Rea M.D. Chlamydia/GC/Trich Amp RNA U samantha 01-09-2018 Chlamydia trach, Amp RNA Ur Positive Abnormal Negative [facility] Comment on above: Performed By: #### C HLGCTRU ####Unless otherwise noted, all testing performed by [place] [id number]: [id number] Director: Jason Rea M.D. Neisseria Gonorr, Amp.RNA Ur Positive Abnormal Negative [facility] Comment on above: Result Comment: [place] [address] Performed By: #### C HLGCTRU ####Unless otherwise noted, all testing performed by [address] [phone]: [id number] Director: Jason Rea M.D. Trichomonas vag. Amp RNA Ur Positive Abnormal Negative [facility] Comment on above: Result Comment: [place] [address] Performed By: #### C HLGCTRU ####Unless otherwise noted, all testing performed by [place] [phone]: [id number] Director: Jason Rea M.D. Vital Signs Date Time Vital Sign Value Performing Clinician Facility 10-15-2024 14:21-0500 Diastolic blood pressure 72 mm[Hg] Bethany Crowder MD Work Phone: [facility] 10-15-2024 14:21-0500 Heart rate 78 /min Bethany Crowder MD Work Phone: [facility] 10-15-2024 14:21-0500 Respiratory rate 16 /min Bethany Crowder MD Work Phone: [facility] 10-15-2024 14:21-0500 SaO2% (BldA) [Mass fraction] 93 % Bethany Crowder MD Work Phone: [facility] 10-15-2024 14:21-0500 Systolic blood pressure 109 mm[Hg] Bethany Crowder MD Work Phone: [facility] 05-11-2024 23:30-0400 Diastolic blood pressure 56 mm[Hg] Danyel Newell MD Work Phone: [facility] 05-11-2024 23:30-0400 Heart rate 72 /min Danyel Newell MD Work Phone: [facility] 05-11-2024 23:30-0400 SaO2% (BldA) [Mass fraction] 94 % Danyel Newell MD Work Phone: [facility] 05-11-2024 23:30-0400 Systolic blood pressure 100 mm[Hg] Danyel Newell MD Work Phone: [facility] 05-11-2024 21:20-0400 Respiratory rate 56 /min Danyel Newell MD Work Phone: [facility] 05-11-2024 19:38-0400 Body height 165.1 cm Danyel Newell MD Work Phone: [facility] 05-11-2024 19:38-0400 Body mass index (BMI) [Ratio] 26.63 kg/m2 Danyel Newell MD Work Phone: [facility] 05-11-2024 19:38-0400 Body weight 72.58 kg Danyel Newell MD Work Phone: [facility] 05-11-2024 19:36-0400 Body temperature 98.2 [degF] Danyel Newell MD Work Phone: [facility] 03-10-2023 14:05-0400 Diastolic blood pressure 77 mm[Hg] Clarissa Lopez CLINICAL NURSE EDUCATOR Work Phone: [facility] 03-10-2023 14:05-0400 Heart rate 96 /min Clarissa Lopez CLINICAL NURSE EDUCATOR Work Phone: [facility] 03-10-2023 14:05-0400 Respiratory rate 16 /min Clarissa Lopez CLINICAL NURSE EDUCATOR Work Phone: [facility] 03-10-2023 14:05-0400 SaO2% (BldA) [Mass fraction] 100 % Clarissa Lopez CLINICAL NURSE EDUCATOR Work Phone: [facility] 03-10-2023 14:05-0400 Systolic blood pressure 118 mm[Hg] Clarissa Lopez CLINICAL NURSE EDUCATOR Work Phone: [facility] 11-27-2022 13:02-0500 Diastolic blood pressure 81 mm[Hg] Clarissa Lopez CLINICAL NURSE EDUCATOR Work Phone: [facility] 11-27-2022 13:02-0500 Heart rate 82 /min Clarissa Lopez CLINICAL NURSE EDUCATOR Work Phone: [facility] 11-27-2022 13:02-0500 Respiratory rate 16 /min Clarissa Lopez CLINICAL NURSE EDUCATOR Work Phone: [facility] 11-27-2022 13:02-0500 SaO2% (BldA) [Mass fraction] 96 % Clarissa Lopez CLINICAL NURSE EDUCATOR Work Phone: [facility] 11-27-2022 13:02-0500 Systolic blood pressure 117 mm[Hg] Clarissa Lopez CLINICAL NURSE EDUCATOR Work Phone: [facility] 08-02-2022 16:00-0400 Body height 167.6 cm No Pcp Required [facility] 08-02-2022 16:00-0400 Body temperature 99.14 [degF] No Pcp Required [facility] 08-02-2022 16:00-0400 Diastolic blood pressure 87 mm[Hg] No Pcp Required [facility] 08-02-2022 16:00-0400 Heart rate 104 /min No Pcp Required [facility] 08-02-2022 16:00-0400 Respiratory rate 18 /min No Pcp Required [facility] 08-02-2022 16:00-0400 SaO2% (BldA) [Mass fraction] 97 % No Pcp Required [facility] 08-02-2022 16:00-0400 Systolic blood pressure 120 mm[Hg] No Pcp Required [facility] 07-15-2022 15:58-0400 Body height 165.1 cm No Pcp Required [facility] 07-15-2022 15:58-0400 Body temperature 98.06 [degF] No Pcp Required [facility] 07-15-2022 15:58-0400 Diastolic blood pressure 75 mm[Hg] No Pcp Required [facility] 07-15-2022 15:58-0400 Heart rate 78 /min No Pcp Required [facility] 07-15-2022 15:58-0400 Respiratory rate 14 /min No Pcp Required [facility] 07-15-2022 15:58-0400 SaO2% (BldA) [Mass fraction] 99 % No Pcp Required [facility] 07-15-2022 15:58-0400 Systolic blood pressure 111 mm[Hg] No Pcp Required [facility] 10-23-2021 11:15-0500 Body height 167.6 cm Clarissa Lopez CNP Work Phone: [facility] 10-23-2021 11:15-0500 Body mass index (BMI) [Ratio] 29.86 kg/m2 Clarissa Lopez CNP Work Phone: [facility] 10-23-2021 11:15-0500 Body weight 83.92 kg Clarissa Lopez CLINICAL NURSE EDUCATOR Work Phone: [facility] 10-23-2021 11:15-0500 Diastolic blood pressure 77 mm[Hg] Clarissa Lopez CLINICAL NURSE EDUCATOR Work Phone: [facility] 10-23-2021 11:15-0500 Heart rate 96 /min Clarissa Lopez CLINICAL NURSE EDUCATOR Work Phone: [facility] 10-23-2021 11:15-0500 Respiratory rate 16 /min Clarissa Lopez CLINICAL NURSE EDUCATOR Work Phone: [facility] 10-23-2021 11:15-0500 SaO2% (BldA) [Mass fraction] 95 % Clarissa Lopez CLINICAL NURSE EDUCATOR Work Phone: [facility] 10-23-2021 11:15-0500 Systolic blood pressure 121 mm[Hg] Clarissa Lopez CLINICAL NURSE EDUCATOR Work Phone: [facility] 10-05-2021 14:47-0500 Body height 167.6 cm Bayron Collins MD Work Phone: [facility] 10-05-2021 14:47-0500 Body mass index (BMI) [Ratio] 32.77 kg/m2 Bayron Collins MD Work Phone: [facility] 10-05-2021 14:47-0500 Body weight 92.08 kg Bayron Collins MD Work Phone: [facility] 10-05-2021 14:47-0500 Diastolic blood pressure 84 mm[Hg] Bayron Collins MD Work Phone: [facility] 10-05-2021 14:47-0500 Heart rate 68 /min Bayron Collins MD Work Phone: [facility] 10-05-2021 14:47-0500 SaO2% (BldA) [Mass fraction] 97 % Bayron Collins MD Work Phone: [facility] 10-05-2021 14:47-0500 Systolic blood pressure 127 mm[Hg] Bayron Collins MD Work Phone: [facility] 04-06-2021 06:46-0400 Body temperature 99.1 [degF] Gosia Garner MD Work Phone: [facility] 04-06-2021 06:46-0400 Diastolic blood pressure 88 mm[Hg] Gosia Garner MD Work Phone: [facility] 04-06-2021 06:46-0400 Heart rate 110 /min Gosia Garner MD Work Phone: [facility] 04-06-2021 06:46-0400 Respiratory rate 18 /min Gosia Garner MD Work Phone: [facility] 04-06-2021 06:46-0400 SaO2% (BldA) [Mass fraction] 98 % Gosia Garner MD Work Phone: [facility] 04-06-2021 06:46-0400 Systolic blood pressure 133 mm[Hg] Gosia Garner MD Work Phone: [facility] 02-24-2020 05:25-0400 BMI (Body Mass Index) 28.25 kg/m2 [facility] 02-24-2020 05:25-0400 Body weight 79.38 kg [facility] 02-24-2020 05:25-0400 BP Diastolic 85 mm[Hg] [facility] 02-24-2020 05:25-0400 BP Systolic 125 mm[Hg] [facility] 02-24-2020 05:25-0400 Height 167.6 cm [facility] 02-24-2020 05:25-0400 Pulse (Heart Rate) 70 /min [facility] 02-24-2020 05:25-0400 Pulse Oximetry 95 % [facility] 02-24-2020 05:25-0400 Respiratory Rate 18 /min [facility] 01-27-2020 11:06-0400 BP Diastolic 49 mm[Hg] [facility] 01-27-2020 11:06-0400 BP Systolic 94 mm[Hg] [facility] 01-27-2020 11:06-0400 Pulse (Heart Rate) 66 /min [facility] 01-27-2020 11:06-0400 Pulse Oximetry 98 % [facility] 01-27-2020 11:06-0400 Respiratory Rate 16 /min [facility] 01-27-2020 07:13-0400 Body Temperature 98.29 [degF] [facility] 01-27-2020 07:12-0400 BMI (Body Mass Index) 25.82 kg/m2 [facility] 01-27-2020 07:12-0400 Body weight 72.58 kg [facility] 10-25-2019 17:21-0500 BMI (Body Mass Index) 27.44 kg/m2 [facility] 10-25-2019 17:21-0500 Body weight 77.[address] [facility] 10-25-2019 17:21-[address] [facility] 05-05-2019 23:07-0400 BP Diastolic 76 mm[Hg] Gael Sepulveda [facility] 05-05-2019 23:07-0400 BP Systolic 111 mm[Hg] Gael Sepulveda [facility] 05-05-2019 23:07-0400 Pulse (Heart Rate) 85 /min Gael Sepulveda [facility] 05-05-2019 23:07-0400 Pulse Oximetry 98 % Gael Sepulveda [facility] 05-05-2019 23:07-0400 Respiratory Rate 16 /min Gael Sepulveda [facility] 05-05-2019 21:42-0400 Body Temperature 98.6 [degF] Gael Sepulveda [facility] 05-05-2019 17:15-0400 BMI (Body Mass Index) 30.67 kg/m2 Gael Sepulveda [facility] 05-05-2019 17:15-0400 Body weight 86.18 kg Gael Sepulveda [facility] 05-05-2019 17:15-0400 Height 167.6 cm Gael Sepulveda [facility] 04-26-2019 17:33-0400 BP Diastolic 70 mm[Hg] Phillip [facility] 04-26-2019 17:33-0400 BP Systolic 108 mm[Hg] [facility] 04-26-2019 17:33-0400 Pulse (Heart Rate) 94 /min [facility] 04-26-2019 17:33-0400 Pulse Oximetry 97 % [facility] 04-26-2019 14:39-0400 Body Temperature 98.1 [degF] Phillip [facility] 04-26-2019 14:35-0400 BMI (Body Mass Index) 29.86 kg/m2 Phillip [facility] 04-26-2019 14:35-0400 Body weight 83.92 kg Phillip [facility] 04-26-2019 14:35-0400 Height 167.6 cm Phillip [facility] 04-26-2019 14:35-0400 Respiratory Rate 18 /min Phillip [facility] 03-19-2019 10:59-0400 BMI (Body Mass Index) 32.28 kg/m2 [facility] 03-19-2019 10:59-0400 Body Temperature 98.2 [degF] [facility] 03-19-2019 10:59-0400 Body weight 90.72 kg [facility] 03-19-2019 10:59-0400 BP Diastolic 83 mm[Hg] [facility] 03-19-2019 10:59-0400 BP Systolic 135 mm[Hg] [facility] 03-19-2019 10:59-0400 Height 167.6 cm [facility] 03-19-2019 10:59-0400 Pulse (Heart Rate) 92 /min [facility] 03-19-2019 10:59-0400 Pulse Oximetry 97 % [facility] 03-19-2019 10:59-0400 Respiratory Rate 16 /min [facility] 01-15-2019 12:12-0400 Body Temperature 97.81 [degF] [facility] 12:12-0400 BP Diastolic 90 mm[Hg] [facility] 01-15-2019 12:12-0400 BP Systolic 132 mm[Hg] [facility] 01-15-2019 12:12-0400 Pulse (Heart Rate) 75 /min [facility] 01-15-2019 12:12-0400 Pulse Oximetry 98 % Carlo [facility] Encounters Encounter Date Encounter Type Care Provider Facility Start: 03-08-2025 End: 03-15-2025 Josep Schwartz MA [facility] Start: 02-15-2025 End: 02-15-2025 ambulatory Rhina Labor Facility:[facility] Start: 01-18-2025 End: 01-18-2025 ambulatory Rhina Labor Facility:[facility] Start: 10-15-2024 End: 10-15-2024 Office outpatient visit 25 minutes Bethany Crowder MD Work Phone: [facility] Comment on above: Psychogenic nonepile ptic seizure (Primary Dx) Start: 10-15-2024 End: 10-15-2024 ambulatory BETHANY CROWDER [facility] Start: 05-11-2024 End: 05-11-2024 Emergency department patient visit Danyel Newell MD Work Phone: [facility] Start: 05-11-2024 End: 05-11-2024 Emergency department patient visit [facility] Start: 01-11-2024 End: 01-11-2024 Emergency department patient visit [facility] Start: 03-10-2023 End: 03-10-2023 Office outpatient visit 40 minutes Clarissa Lopez CNP Work Phone: [facility] Comment on above: Psychogenic nonepile ptic seizure (Primary Dx); Polysubstance dependence (HCC) Start: 11-27-2022 End: 11-27-2022 Office outpatient visit 40 minutes Clarissa Lopez CNP Work Phone: [facility] Comment on above: Psychogenic nonepile ptic seizure (Primary Dx); Mood disorder (HCC); Bipolar affective disorder, remission status unspecified (HCC); Sciatic leg pain; Polysubstance dependence (HCC) Start: 09-19-2022 End: 09-19-2022 Patient encounter procedure Clarissa Lopez CNP Work Phone: [facility] Comment on above: Psychogenic nonepile ptic seizure (Primary Dx) Start: 08-02-2022 End: 08-02-2022 Emergency department patient visit Camron Shukla [place] [id number] Start: 07-16-2022 Release of Information Provide r Not In System [facility] Start: 07-16-2022 [facility] Provider Not I n System [facility] Start: 07-15-2022 End: 07-15-2022 Emergency department patient visit Camron Shukla [facility] [place] [id number] Start: 06-08-2022 Refill Clarissa Lopez CLINICAL NURSE EDUCATOR Work Phone: [facility] Comment on above: Psychogenic nonepile ptic seizure Start: 05-10-2022 Refill Clarissa Lopez CLINICAL NURSE EDUCATOR Work Phone: [facility] Comment on above: Psychogenic nonepile ptic seizure Start: 04-08-2022 Refill Clarissa Lopez CLINICAL NURSE EDUCATOR Work Phone: [facility] Comment on above: Psychogenic nonepile ptic seizure Start: 12-14-2021 End: 12-14-2021 Office outpatient new 45 minutes Shawna Whitfield DO Work Phone: [facility] Comment on above: PTSD (post-traumatic stress disorder) (Primary Dx); Generalized anxiety disorder; Mood disorder (HCC); Opioid use disorder, severe, dependence (HCC); Stimulant use disorder; Tobacco use disorder; Psychogenic nonepileptic seizure Start: 10-23-2021 End: 10-23-2021 Office outpatient visit 40 minutes Clarissa Lopez CLINICAL NURSE EDUCATOR Work Phone: [facility] Comment on above: Psychogenic nonepile ptic seizure (Primary Dx); Bipolar affective disorder, remission status unspecified (HCC); Post traumatic stress disorder (PTSD); Opioid abuse (HCC) Start: 10-05-2021 End: 10-05-2021 Postop follow up visit related to original px Bayron Collins MD Work Phone: [facility] Comment on above: Abscess of left arm (Primary Dx) Start: 04-06-2021 End: 04-06-2021 Emergency department patient visit Gosia Garner MD Work Phone: [facility] Start: 02-24-2020 End: 02-24-2020 Emergency department patient visit Gosia Garner Work Phone: [facility] Comment on above: Acute superficial ga stritis without hemorrhage (Primary Dx) Start: 01-28-2020 End: 01-28-2020 Patient encounter procedure Fabi [facility] Comment on above: proactive outreach Start: 01-27-2020 End: 01-27-2020 Emergency department patient visit Monico Anderson Work Phone: [facility] Comment on above: Polysubstance abuse (HCC) (Primary Dx); Elevated liver enzymes Start: 10-25-2019 End: 10-26-2019 Patient encounter procedure NONE NONE Facility:[facility] Start: 10-25-2019 End: 10-25-2019 Emergency department patient visit [facility] Start: 05-05-2019 End: 05-05-2019 Emergency department patient visit Gael Mcbrideuart Sepulveda Work Phone: [facility] Comment on above: Seizure (HCC) (Prima ry Dx); Other depression Start: 04-26-2019 End: 04-26-2019 Emergency department patient visit Phillip Jaimes Work Phone: [facility] Comment on above: Drug abuse (HCC) (Pr imary Dx) Start: 03-19-2019 End: 03-19-2019 Office outpatient visit 25 minutes Bethany Villegas Crowder Work Phone: [facility] Comment on above: Psychogenic nonepile ptic seizure (Primary Dx) Start: 01-15-2019 End: 01-15-2019 Emergency department patient visit Carlo Jimy Kimball Work Phone: [facility] Start: 05-19-2018 Patient encounter Félix Lacy [facility]il [facility] Start: 04-21-2018 End: 04-21-2018 Patient encounter FÉLIX LACY [facility] Start: 04-21-2018 End: 04-21-2018 Patient encounter Félix Lacy Work Phone: [facility] Start: 04-20-2018 Patient encounter Félix Lacy Facil ity:[facility] Start: 01-23-2018 End: 01-23-2018 Patient encounter FÉLIX LACY [facility] Start: 01-23-2018 Patient encounter Félix Mayer ity:[facility] Start: 01-23-2018 End: 01-23-2018 Ambulatory Félix Lacy Work Phone: [facility] Start: 01-10-2018 End: 01-10-2018 Patient encounter FÉLIX LACY [facility] Start: 01-10-2018 End: 01-10-2018 Ambulatory Félix Lacy Work Phone: [facility] Start: 01-09-2018 Patient encounter Félix Mayer ity[facility] Start: 07-27-2016 End: 07-27-2016 Ambulatory Gabriel Barboza Facility:[facility] Start: 10-31-2015 End: 10-31-2015 Ambulatory Danyel Newell Work Phone: [facility] Procedures Date Procedure Procedure Detail Performing Clinician Start: 05-11-2024 Ct head/brain w/o contrast material Danyel Newell MD Work Phone: Start: 05-11-2024 Urinalysis microscopic only Danyel joyce MD Work Phone: Start: 05-11-2024 Urinalysis, reagent strip without microscopy Danyel Newell MD Work Phone: Start: 05-11-2024 Urine drug screening Danyel Silver Work Phone: Start: 05-11-2024 Complete blood count with white cell differential, automated Danyel Newell MD Work Phone: Start: 05-11-2024 End: 05-11-2024 Comprehensive metabolic panel Danyel Newell MD Work Phone: Start: 05-11-2024 Ecg routine ecg w/least 12 lds w/i&r Danyel Newell MD Work Phone: Start: 04-06-2021 Radex foot complete minimum 3 views Jamila Anderson [facility] Work Phone: Start: 02-24-2020 Ethanol [Mass/volume] in Serum or Plasma Gosia Garner Work Phone: Start: 02-24-2020 HAMMOND TOP Gosia Tavaresja Patsy Work Phone: Start: 02-24-2020 Basic metabolic 1998 panel - Serum or Plasma Gosia Herronlloh Work Phone: Start: 02-24-2020 Complete blood count with white cell differential, automated Gosia Josephine Patsy Work Phone: Start: 02-24-2020 Complete blood count with white cell differential, manual Gosia Tavaresja Patsy Work Phone: Start: 02-24-2020 Hepatic function 2000 panel - Serum or Plasma Gosia Herronlloh Work Phone: Start: 02-24-2020 LAVENDER TOP Gosia Tavaresja Patsy Work Phone: Start: 02-24-2020 LIGHT BLUE TOP Gosia Tavaresja Patsy Work Phone: Start: 02-24-2020 Lipase [Enzymatic activity/volume] in Serum or Plasma Gosia Tavaresja Patsy Work Phone: Start: 02-24-2020 MINT GREEN TOP Gosia Tavaresja Patsy Work Phone: Start: 02-24-2020 RAINBOW DRAW [place] Josephine Patsy Work Phone: Start: 02-07-2020 Adult depression screening assessment [place]ia Garner Start: 01-27-2020 Complete blood count with white cell differential, automated Elis Marin Work Phone: Start: 01-27-2020 Complete blood count with white cell differential, manual Elis Marin Work Phone: Start: 01-27-2020 Comprehensive metabolic 2000 panel - Serum or Plasma Elis Marin Work Phone: Start: 01-27-2020 Lipase [Enzymatic activity/volume] in Serum or Plasma Elis Marin Work Phone: Start: 01-27-2020 Red blood cell morphology Elis Marin Work Phone: Start: 01-27-2020 Choriogonadotropin ( test) [Presence] in Urine Elis Marin Work Phone: Start: 01-27-2020 Drugs of abuse urine screening test Elis Marin Work Phone: Start: 01-27-2020 Urinalysis Elis wells Work Phone: Start: 05-05-2019 CT of head without contrast [place] olmos Work Phone: Start: 05-05-2019 Basic metabolic 2000 panel - Serum or Plasma [place] Perdomo Work Phone: Start: 05-05-2019 Complete blood count with white cell differential, automated [place] Perdomo Work Phone: Start: 05-05-2019 Complete blood count with white cell differential, manual [place] Perdomo Work Phone: Start: 05-05-2019 Ethanol [Mass/volume] in Serum or Plasma [place] Perdomo Work Phone: Start: 05-05-2019 Hepatic function 2000 panel - Serum or Plasma [place] Perdomo Work Phone: Start: 05-05-2019 INR in Platelet poor plasma by Coagulation assay [place] Perdomo Work Phone: Start: 05-05-2019 Lipase [Enzymatic activity/volume] in Serum or Plasma [place] Perdomo Work Phone: Start: 05-05-2019 Troponin measurement [place] Perdomo Work Phone: Start: 05-05-2019 Choriogonadotropin ( test) [Presence] in Urine [place] Perdomo Work Phone: Start: 05-05-2019 Drugs of abuse urine screening test [place] Perdomo Work Phone: Start: 05-05-2019 Urinalysis [place] Perdomo Work Phone: Start: 04-26-2019 Choriogonadotropin ( test) [Presence] in Urine Phillip Jaimes Work Phone: Start: 01-12-2019 Adult depression screening assessment [facility] Plan of Treatment Date Care Activity Detail Author Start: 05-30-2025 Influenza vaccination Influenz a Vaccine (Season Ended) [facility] Start: 05-30-2024 COVID-19 Vaccine ( season) COVID-19 Vaccine ( season) [facility] Start: 05-30-2024 Influenza vaccination INFLUENZA VACC INE (#1) [facility] Start: 05-30-2023 COVID-19 VACCINE ( season) COVID-19 VACCINE ( season) [facility] Start: 05-30-2023 Influenza vaccination Sequenti al Influenza Vaccine (Season Ended) [facility] Start: 02-20-2023 End: 02-20-2023 Patient encounter procedure 02/20/2023 Office Visit Neurology Clarissa Lopez, IVELISSE [address] [place], [place] [id number] [facility] Start: 10-23-2022 End: 10-23-2022 Patient encounter procedure 10/23/2022 Office Visit Neurology Clarissa Lopez CNP [address] [place] [id number] [facility] Start: 10-14-2022 End: 10-14-2022 Patient encounter procedure 10/14/2022 Office Visit Primary Care Maria Esther Noe, IVELISSE [address] [place] [id number] [facility] Start: 09-19-2022 End: 09-19-2022 Patient encounter procedure 09/19/2022 Office Visit Neurology Clarissa Lopez, CLINICAL NURSE EDUCATOR [address] [facility] [address] [place] [id number] [facility] Start: 05-30-2022 Influenza vaccination Sequenti al Influenza Vaccine (#1) [facility] Start: 04-22-2022 End: 04-22-2022 Patient encounter procedure 04/22/2022 Office Visit Neurology Clarissa Lopez, CLINICAL NURSE EDUCATOR [address] [facility] [address] [place] [id number] [facility] Start: 03-20-2022 End: 03-20-2022 Patient encounter procedure 03/20/2022 Office Visit Psychiatry Ayana Mahmood, CLINICAL NURSE EDUCATOR [address] [facility] [address] [place] [phone] [facility] Start: 2022 Screening for malign ant neoplasm of cervix [facility] Start: 10-23-2021 End: 10-23-2021 Patient encounter procedure 10/23/2021 Office Visit Neurology Clarissa Lopez, CLINICAL NURSE EDUCATOR [address] [facility] [address] [place] [id number] [facility] Start: 05-30-2021 Influenza vaccination Sequenti al Influenza Vaccine (#1) [facility] Start: 02-06-2021 Depression screening using PHQ-9 (Patient Health Questionnaire 9) score [facility] Start: 05-30-2020 Influenza vaccinatio n given Sequential Influenza Vaccine (Season Ended) [facility] Start: 01-13-2020 Depression screening using PHQ-9 (Patient Health Questionnaire 9) score DEPRESSION SCREENING (PHQ9) [facility] Start: 12-14-2019 End: 12-14-2019 Office Visit 12/14/2019 Office Visit Psychiatry Guy Pichardo MD [address] [place] [phone] [facility] Start: 05-30-2019 Influenza vaccinatio n given [facility] Start: 04-13-2019 End: 04-13-2019 Office Visit 04/13/2019 Office Visit Primary Care Criss Larry, CLINICAL NURSE EDUCATOR [address] [place] [address] [place] [address] Start: 05-30-2018 Influenza vaccination SEQUENTI AL INFLUENZA VACCINE (#1) [facility] Start: 05-30-2018 Influenza vaccinatio n given SEQUENTIAL INFLUENZA VACCINE (#1) [facility] Start: 05-30-2017 Influenza vaccination SEQUENTI AL INFLUENZA VACCINE (#1) [facility] Work Phone: Start: 2013 Screening for malign ant neoplasm of cervix [facility] Start: 2011 Hepatitis B vaccination HEP B VACCINE (1 of 3 - 19+ 3-dose series) [facility] Start: 2011 Pneumococcal Vaccine : Ped or At-Risk (1 of 2 - PCV) Pneumococcal Vaccine: Ped or At-Risk (1 of 2 - PCV) [facility] Start: 2011 Third diphtheria, tetanus and acellular pertussis (DTaP) vaccination TDAP (ADULT) [facility] Start: 2007 HIV screening HIV SCREENING DISCUSSION [facility] Start: 2004 COVID-19 Vaccine (1) COVID-19 Vaccin e (1) [facility] Start: 2003 Vaccination for kimani n papillomavirus HPV VACCINES (1 of 3 - Female 3 Dose Series) [facility] Work Phone: Start: 1998 Pneumococcal Vaccine : Ped or At-Risk (1 - PCV) Pneumococcal Vaccine: Ped or At-Risk (1 - PCV) [facility] Start: 1998 Pneumococcal Vaccine : Ped or At-Risk (1 of 2 - PPSV23) Pneumococcal Vaccine: Ped or At-Risk (1 of 2 - PPSV23) [facility] Start: 1997 COVID-19 Vaccine (1) COVID-19 Vaccin e (1) [facility] Start: 1995 History and physical examination, annual for health maintenance Wellness Visit [facility] Start: 1992 COVID-19 Vaccine (#1) COVID-19 Vacci ne (#1) [facility] Start: 1992 Depression screening using PHQ-9 (Patient Health Questionnaire 9) score Depression Screening (PHQ9) [facility] Start: 1992 Hepatitis C screening HEPATITI S C VIRUS SCREENING [facility] Start: 1992 Screening for malign ant neoplasm of cervix PAP SMEAR [facility] Start: 1992 Tetanus vaccination [facility] End: 01-27-2020 Bacteria identified Aer cx Nom (Unsp spec) Urine Aerobic Culture Microbiology Routine Once for 1 Occurrences starting 01/27/2020 until 01/27/2020 [facility] Comment on above: Once for 1 Occurrenc es starting 01/27/2020 until 01/27/2020 Bacteria identified Aer cx Nom (Unsp spec) [facility] End: 05-05-2019 Bacteria identified Aer cx Nom (Unsp spec) Urine Aerobic Culture Microbiology Routine Once for 1 Occurrences starting 05/05/2019 until 05/05/2019 [facility] Comment on above: Once for 1 Occurrenc es starting 05/05/2019 until 05/05/2019 End: 04-06-2021 Bacteria identified in Blood by Culture Blood Culture Aerobic/Anaerobic Microbiology Routine Once for 1 Occurrences starting 04/06/2021 until 04/06/2021 [facility] Comment on above: Once for 1 Occurrenc es starting 04/06/2021 until 04/06/2021 CT of head without contrast CT Head Or Brain Without Contrast Imaging JENNIFER 05/05/2019 7:37 PM EDT [facility] Standard ECG ECG ECG STAT 05/11/2024 7:41 PM EDT [facility] Payers Date Payer Category Payer Self-pay 2023 Miscellaneous or Other [employer] [id number] 2023 Unknown [id number] 2023 Unknown [id number] 2019 Medicaid [employer] [place] [id number] 2019-Present [id number] 2019 Medicaid [id number] 2019 Medicaid [id number] 2016 Unknown 2015 Medicaid [id number] 2013 Unknown [id number] 1992 Unknown [id number] 1992 Unknown [id number] 1992 Unknown [id number] 1992 Unknown [id number] 1992 Unknown [id number] 1992 Unknown [id number] 903 1959 Medicaid [id number] Medicaid [id number] Unknown [id number] Unknown [id number] Unknown [id number] Social History Date Type Detail Facility Start: 12-09-2016 End: 10-15-2024 Tobacco smoking status KYIS Current every day smoker [facility] History of tobacco use Cigarette Smoker [facility] Start: 12-09-2016 End: 10-15-2024 Cigarettes smoked current (pack per day) - Reported [facility] Start: 1990 Sex Assigned At Not on file [facility] Work Phone: Start: 08-06-2017 End: 05-11-2024 Tobacco smoking status NHIS Unknown if ever smoked [facility] Work Phone: Start: 10-25-2019 End: 10-15-2024 Alcohol intake Current non-drinker of alcohol (finding) [facility] Start: 11-17-2022 End: 11-27-2022 Exposure to SARS-CoV-2 (event) Not sure [facility] Start: 04-06-2021 End: 10-15-2024 Tobacco use and exposure Never used [facility] Start: 03-10-2023 End: 10-15-2024 Tobacco use panel [facility] Start: 05-19-2018 Gender identity Identifies as female gender (finding) [facility] Start: 05-19-2018 Sexual orientation Heterosexual (finding) [facility] Start: 05-11-2024 Alcoholic beverage intake Ex-drinker (finding) [facility] Adult Depression Screening Assessment 0 [facility] Goals Date Patient Goal Desired Activity /State Personal health goal Comment on above: Formatting of this n ote might be different from the original. Advised on benefits of quitting, consequences of not quitting (stroke, Many different types of cancer, heart attack, blood clot, COPD, URIs). Also aware that continued smoking/tobacco usage can lead to . Advise on smoking cessation options and their pros/cons (nicotine replacement, wellbutrin and chantix and counseling). Personal health goal Comment on above: Formatting of this n ote might be different from the original. Tips for weight loss Drink a class of water when you wake up in AM. Eat off a salad plate and not dinner plate Focus on half the plate being nutrient dense veggies. Serving size of protein the size of your palm. Avoid bread, rice, cereal, pasta, cakes, junk food, etc. Reduce cheeses and milk Replace one meal with a low carb and calorie protein drink Drink only water and flavored water. Avoid calories from sugary tea, sugary coffees, soda, juice, sports drinks, energy drinks. Eat to 80% satiety (fullness). Look to food as nutrition and not a reward. Have a reward snack once a week. Comment on above: Will be on 1400 nicola diet. Use food diary: free APPs. frestyl. [employer] are great options. Log everything you eat or drink! 40 gram carb per day Veggies: can have 3 cups per day Fruits: (2) 1 cup servings per day Meat: (4) 3/4 cup servings per day Carb: (2) 1/2 cup servings per day Nuts/healthy fat: (1) 1/4 cup per day Seeds/dressin TBSP daily Free foods: water, lemon/moapa juice, vinegar, mustard, herbs, spices- no salt, garlic, finger, green onion, chilies, hot sauce, extracts (vanilla, caramel, almond, peppermint) MUST walk 3 miles/ 10k steps per day or swim 45-60 minutes per day Formatting of this n ote might be different from the original. Will be on 1400 nicola diet. Use food diary: free APPs. frestyl. [employer] are great options. Log everything you eat or drink! 40 gram carb per day Veggies: can have 3 cups per day Fruits: (2) 1 cup servings per day Meat: (4) 3/4 cup servings per day Carb: (2) 1/2 cup servings per day Nuts/healthy fat: (1) 1/4 cup per day Seeds/dressin TBSP daily Free foods: water, lemon/moapa juice, vinegar, mustard, herbs, spices- no salt, garlic, finger, green onion, chilies, hot sauce, extracts (vanilla, caramel, almond, peppermint) MUST walk 3 miles/ 10k steps per day or swim 45-60 minutes per day Comment on above: Advised on benefits of quitting, consequences of not quitting (stroke, Many different types of cancer, heart attack, blood clot, COPD, URIs). Also aware that continued smoking/tobacco usage can lead to . Advise on smoking cessation options and their pros/cons (nicotine replacement, wellbutrin and chantix and counseling). Formatting of this n ote might be different from the original. Advised on benefits of quitting, consequences of not quitting (stroke, Many different types of cancer, heart attack, blood clot, COPD, URIs). Also aware that continued smoking/tobacco usage can lead to . Advise on smoking cessation options and their pros/cons (nicotine replacement, wellbutrin and chantix and counseling). Comment on above: Formatting of this n ote might be different from the original. Tips for weight loss Drink a class of water when you wake up in AM. Eat off a salad plate and not dinner plate Focus on half the plate being nutrient dense veggies. Serving size of protein the size of your palm. Avoid bread, rice, cereal, pasta, cakes, junk food, etc. Reduce cheeses and milk Replace one meal with a low carb and calorie protein drink Drink only water and flavored water. Avoid calories from sugary tea, sugary coffees, soda, juice, sports drinks, energy drinks. Eat to 80% satiety (fullness). Look to food as nutrition and not a reward. Have a reward snack once a week. Clinical Notes 04-06-2021 to 03-08-2025 Telephone Encounter - Susannah Schwartz MA - 03/08/2025 3:09 PM EDTTelephone Encounter - Susannah Schwartz MA - 03/08/2025 3:09 PM EDTPatient InstructionsDischarge InstructionsAttachments Note Date & Type Note Facility 03-08-2025 Telephone encounter Note Called and spoke to [facility] approved HIPAA person and shared we can not fill this for her. She stated understanding. [facility] 03-08-2025 Miscellaneous Notes Called and spoke to [facility]oum[facility] approved HIPAA person and shared we can not fill this for her. She stated understanding. documented in this encounter [facility] 10-15-2024 Instructions Bethany Crowder MD - 10/15/2024 2:43 PM EST Monitor for any recurrent spells or seizure. Avoid trigger factors or precipitating factors. Maintain regular sleep and dietary habits. Avoid any recreational drugs. Discontinue tobacco use. Monitor for any worsening anxiety and depression. No driving or operating motor vehicle 6 months from last spells or seizure. Will see her for follow-up visit as needed. documented in this encounter [facility] 10-15-2024 History of Presen t illness Narrative Subjective: Patient ID: Yoel Quintanilla is a 34 y.o. female. Ms. Quintanilla came for a follow up visit accompanied by her mother. Patient was seen in the hospital November of 2014. She has a history of recurrent syncope without any clear trigger factors. She was noted to have some fluid around the heart. Three days prior to hospitalization, she developed 2 generalized tonic-clonic seizure, witnessed by her mom, described as a vague sensation before she became unresponsive with eyes rolled up, stiff shaky, and tremulous, lasting 30 seconds to several minutes in duration with tongue-biting, no incontinence, some postictal somnolence and confusion; previously had urinary incontinence. The following day she had 3 more episodes and the day prior to admission, she had 6 episodes. Stress usually triggers her seizures. She was admitted and placed on IV Keppra 750 mg twice a day. Her CT was unremarkable and her EEG was normal. She has tolerated the medication. She was discharged and Keppra was changed to Lamictal by her primary care doctor. Since discharge she had 4 episodes of generalized tonic-clonic seizures. Her repeat EEG was unremarkable. She has previous video EEG done at [facility] and she was diagnosed to have nonepileptic seizures. Her Lamictal was increased at the rehab center to 150 mg twice a day. She has been using it for mood regulation. This was eventually tapered off. She is currently using sertraline and Seroquel. She is doing drug rehabilitation and has been sober for any substance use for the last 6 months. Her last spell was August 2018. She has been off her gabapentin which she used for sciatic pain. This has improved over time. Video EEG January 23, 2016: Multiple whole body shaking spells in quick succession on the afternoon of 01/22 as described above and one the following morning. These event had no EEG correlate and appear both clinically and electrographically NON-epileptic. Clinical correlation with target events required. No interictal epileptiform discharges or electrographic seizures captured but this does not rule out a co-morbid epilepsy diagnosis. 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 Normal background activity. 2. One captured clinical event as described above. This event was clinically and electrographically NON-epileptic in nature. No interictal epileptiform discharges or electrographic seizures were captured although this does not rule out a potential co-existing diagnosis of epilepsy. Head CT May 11, 2024: No acute intracranial abnormality. Brain MRI December 11, 2015: Normal MRI of the brain. PAST MEDICAL HISTORY Left lower extremity sciatica and history of syncope. FAMILY HISTORY Negative for seizures. SOCIAL HISTORY Smoking and drug use. She last used IV heroin early February 2019. She is currently on rehab for substance use. The following portions of the patient's history were reviewed and updated as appropriate: allergies, current medications, past family history, past medical history, past social history, past surgical history and problem list. Objective: Patient awake and alert. No carotid bruit. Heart rate and rhythm is regular. Patient is oriented. Attention and comprehension were intact. Behavior is appropriate. Follows simple commands. Speech is fluent and spontaneous. Language is intact. Pupils are 4 mm equally reactive to light. No ptosis, nystagmus, or gaze deviation. Extraocular muscles intact. Face is symmetrical. Hearing is grossly intact. Gross strength is intact with normal muscle tone and bulk. No muscle fasciculations. No tremors or abnormal movements. Gait and station is stable. Patient can tandem, heel and toe walk without any difficulty. Assessment/Plan: Patient came for follow up visit. She started having seizures described as GTCS lasting 30 seconds to 1 minute in duration with vague aura and tongue biting. This is triggered by stress. She had video-EEG at [facility] January 23, 2016. She had repetitive convulsive spell with no epileptiform discharges nor electrographic seizure. She was diagnosed to have psychogenic nonepileptic seizures. She has history of PTSD, anxiety and depression, bipolar disorder. She was initially on Keppra and later was switched to lamotrigine. She uses lamotrigine mainly for mood regulation. This was eventually discontinued. She has been using sertraline and Seroquel for her anxiety disorder. She is currently sober for 6 months from any recreational drugs. She is still smoking. We discussed about importance of quitting nicotine use. 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 She relapsed early February 2019. She is currently doing rehab therapy for substance use. Her last stress induced seizure was August 2018. She is off gabapentin since his left leg sciatica has been tolerable over time. Impression: Psychogenic nonepileptic seizures PTSD Bipolar disorder Syncope Left lower extremity sciatica Substance abuse Suggestion: Monitor for any recurrent spells or seizure. Avoid trigger factors or precipitating factors. Maintain regular sleep and dietary habits. Avoid any recreational drugs. Discontinue tobacco use. Monitor for any worsening anxiety and depression. Will see her for follow-up visit as needed. Diagnostic impression, plans, and suggestions were explained and discussed. Records from the referring physician were reviewed. Clinical imaging study/ labs/medical tests were ordered/reviewed. Indications, risk, complications, side effects and alternatives of medications/therapeutics were explained and discussed. Please monitor closely for any untoward side effects or complications of medications. Questions and concerns were addressed. Please call or contact us for any problems. This note was created in part using a speech-recognition software. Time Code: 34 minutes 1. Preparation for patient's visit (reviewing previous chart, current medical records, previous history, exam, tests, procedures, and medications) 2. Face to face encounter obtaining history from the patient/family/caregivers; performing evaluation and examination; discussing tests and procedure results, medications and therapeutic options, side effects and complications of medications and procedures. Ordering medications, tests, or procedures; referring and communicating with other physicians, healthcare professionals; counseling and education of the patient/family/caregiver; independently interpreting results (tests, labs, procedures, imaging) and communicating and explaining results to the patient/family/caregiver. 3. Coordination of care; preparing and printing discharge instruction and any educational material for the patient and caregivers. Documenting clinical information in the electronic and other health records. Reviewing OARRS as needed. documented in this encounter [facility] 10-15-2024 Note Subjective: Patient ID: Yoel Quintanilla is a 34 y.o. female. Ms. Quintanilla came for a follow up visit accompanied by her mother. Patient was seen in the hospital November of 2014. She has a history of recurrent syncope without any clear trigger factors. She was noted to have some fluid around the heart. Three days prior to hospitalization, she developed 2 generalized tonic-clonic seizure, witnessed by her mom, described as a vague sensation before she became unresponsive with eyes rolled up, stiff shaky, and tremulous, lasting 30 seconds to several minutes in duration with tongue-biting, no incontinence, some postictal somnolence and confusion; previously had urinary incontinence. The following day she had 3 more episodes and the day prior to admission, she had 6 episodes. Stress usually triggers her seizures. She was admitted and placed on IV Keppra 750 mg twice a day. Her CT was unremarkable and her EEG was normal. She has tolerated the medication. She was discharged and Keppra was changed to Lamictal by her primary care doctor. Since discharge she had 4 episodes of generalized tonic-clonic seizures. Her repeat EEG was unremarkable. She has previous video EEG done at [facility] and she was diagnosed to have nonepileptic seizures. Her Lamictal was increased at the rehab center to 150 mg twice a day. She has been using it for mood regulation. This was eventually tapered off. She is currently using sertraline and Seroquel. She is doing drug rehabilitation and has been sober for any substance use for the last 6 months. Her last spell was August 2018. She has been off her gabapentin which she used for sciatic pain. This has improved over time. Video EEG January 23, 2016: Multiple whole body shaking spells in quick succession on the afternoon of 01/22 as described above and one the following morning. These event had no EEG correlate and appear both clinically and electrographically NON-epileptic. Clinical correlation with target events required. No interictal epileptiform discharges or electrographic seizures captured but this does not rule out a co-morbid epilepsy diagnosis. Video EEG December 12, 2015: [facility] was notable for: 1. Normal background activity. 2. One captured clinical event as described above. This event was clinically and electrographically NON-epileptic in nature. No interictal epileptiform discharges or electrographic seizures were captured although this does not rule out a potential co-existing diagnosis of epilepsy. Head CT May 11, 2024: No acute intracranial abnormality. Brain MRI December 11, 2015: Normal MRI of the brain. PAST MEDICAL HISTORY Left lower extremity sciatica and history of syncope. FAMILY HISTORY Negative for seizures. SOCIAL HISTORY Smoking and drug use. She last used IV heroin early February 2019. She is currently on rehab for substance use. The following portions of the patient's history were reviewed and updated as appropriate: allergies, current medications, past family history, past medical history, past social history, past surgical history and problem list. Objective: Patient awake and alert. No carotid bruit. Heart rate and rhythm is regular. Patient is oriented. Attention and comprehension were intact. Behavior is appropriate. Follows simple commands. Speech is fluent and spontaneous. Language is intact. Pupils are 4 mm equally reactive to light. No ptosis, nystagmus, or gaze deviation. Extraocular muscles intact. Face is symmetrical. Hearing is grossly intact. Gross strength is intact with normal muscle tone and bulk. No muscle fasciculations. No tremors or abnormal movements. Gait and station is stable. Patient can tandem, heel and toe walk without any difficulty. Assessment/Plan: Patient came for follow up visit. She started having seizures described as GTCS lasting 30 seconds to 1 minute in duration with vague aura and tongue biting. This is triggered by stress. She had video-EEG at [facility] January 23, 2016. She had repetitive convulsive spell with no epileptiform discharges nor electrographic seizure. She was diagnosed to have psychogenic nonepileptic seizures. She has history of PTSD, anxiety and depression, bipolar disorder. She was initially on Keppra and later was switched to lamotrigine. She uses lamotrigine mainly for mood regulation. This was eventually discontinued. She has been using sertraline and Seroquel for her anxiety disorder. She is currently sober for 6 months from any recreational drugs. She is still smoking. We discussed about importance of quitting nicotine use. 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 She relapsed early February 2019. She is currently doing rehab therapy for substance use. Her last stress induced seizure was August 2018. She is off gabapentin since his left leg sciatica has been tolerable over time. Impression: Psychoge (more content not included)... [facility] 05-11-2024 Emergency department Note 's deputy verbalized understanding of dc and follow up orders. Iv discontinued, catheter intact, no signs of infiltration or adverse effects. Patient ambulated, vital signs stabe, gait slightly unsteady, to wheelchair, after being handcuffed, and wheeled out of ed, by deputy and [employer] security, x 2 officers, nad. [facility] 05-11-2024 Emergency department Note 's deputy verbalized understanding of dc and follow up orders. Iv discontinued, catheter intact, no signs of infiltration or adverse effects. Patient ambulated, vital signs stabe, gait slightly unsteady, to wheelchair, after being handcuffed, and wheeled out of ed, by deputy and [employer] security, x 2 officers, nad. Per Dr. Newell, [facility] called for ride; advised sending deputy out at this time Patient IV infiltrated. Patient writhing in bed, catheter was chcf out with stat lock, two tegaderm and coban. [facility] contacted for records at this time Emergency Room Note [facility] EMERGENCY [facility]PART[facility] Service Date:.05/11/24 PCP: No primary care provider on file. Chief Complaint: Chief Complaint Patient presents with Drug Overdose Brought to nursing home [phone], Police states 1600 drug overdose with Narcan, taken to [facility] with workup. Brought back to nursing home to go to medical unit, medical unit stated unstable and unfit for admission. MARCELO Quintanilla is a 34 y.o. female presents to the ED today due to erratic behavior. Patient was arrested and taken to nursing home. When she was booked into the nursing home T she tested positive for amphetamine, cocaine, methamphetamine, marijuana, and fentanyl. She says that she also used heroin yesterday. Patient overdosed again on some sort of narcotic in the nursing home today. They treated her with Narcan. Took her to [facility] Emergency Department. The WD with her states that they did an EKG and some blood work and they discharged her with persistent agitation and erratic behavior so they brought her here for further evaluation. Patient really does not contribute any to history of present illness. Review of Systems: Review of Systems Review of systems is not reliable as the patient will sometimes answer questions and sometimes not and I do think that she is pain much attention to the questions. Past Medical History: No past medical history on file. Past Surgical History: No past surgical history on file. Allergies: Allergies Allergen Reactions Penicillins Medications: Patient's Medications No medications on file Family History: History reviewed. No pertinent family history. Social History: Social History Socioeconomic History Marital status: Single Spouse name: Not on file Number of children: Not on file Years of education: Not on file Highest education level: Not on file Occupational History Not on file Tobacco Use Smoking status: Unknown Smokeless tobacco: Not on file Substance and Sexual Activity Alcohol use: Not Currently Drug use: Yes Types: Methamphetamines, Cocaine, Marijuana, Fentanyl Comment: last use within past 24 hours Sexual activity: Not on file Other Topics Concern Not on file Social History Narrative Not on file Social Determinants of Health Financial Resource Strain: Not on file Food Insecurity: Not on file Transportation Needs: Not on file Physical Activity: Not on file Stress: Not on file Social Connections: Not on file Intimate Partner Violence: Not on file Housing Stability: Not on file Physical Exam: Physical Exam 34-year-old female he is awake and alert. She is agitated moving all extremities around. She will look at you when you speak to her and at times try to cooperate but she just keeps saying that she is anxious and can not sit still. She is able to follow some commands. She did try to sit still for the EKG when we asked her to. Her pupils are 4 mm and they do react. Extraocular movements are grossly intact. Mouth has pink moist mucosa. She is edentulous. Upper dentures are in place. The lowers has been removed. She has an ulcer almost midline at the vestibule of the mouth where the lower lip meets the mandible. Looks like either her dentures have been rubbed this or it is an aphthous ulcer. I do not see any abnormality of the tongue or submandibular area. I do not see any abnormality of the posterior pharynx. She handles secretions without difficulty. She does speak in a normal voice and there is no stridor. Her neck is supple her trachea is midline. Her lungs do have symmetrical breath sounds occasional rhonchi. She does not take deep breaths. Heart is regular on my exam. I do not hear an obvious murmur. Abdomen is soft and nontender. Femoral pulses symmetrical. Pelvis stable. I do not see any signs of trauma to the back and there was no tenderness over the back. There is no tenderness over the long bones upper or lower extremities. She moves all joints of the upper and lower extremities without difficulty. Coo strengths were symmetrical. She has multiple ulcers on her extremities. They do not look infected it looks as if she scratches at her skin regularly. Some track gonzalez but no evidence of cellulitis, lymphangitis, or abscess. Capillary refill is less than 2 seconds at this time. Vital Signs During ED Visit Patient Vitals for the past 24 hrs: BP Temp Temp src Pulse Resp SpO2 Height Weight 05/11/24 2300 98/54 -- -- 77 -- 94 % -- -- 05/11/24 2120 121/71 -- -- 100 (!) 56 96 % -- -- 05/11/242009 -- -- -- -- -- 100 % -- -- 05/11/241937 -- -- -- -- -- -- 1.651 m (5' 5) 72.6 kg (160 lb) 05/11/246 -- 98.2 F (36.8 C) Oral 103 20 99 % -- -- EKG: Sinus rhythm at 99 beats per minute. LA interval is 128 milliseconds. QRS duration is 82 milliseconds. Ronceverte is normal. QT interval does appear to be prolonged for rate. There is baseline irregularity and nonspecific STT wave changes present. No acute ST-elevation in contiguous leads. No significant ectopy. Orders/Results: Orders Placed This Encounter CT HEAD WITHOUT CONTRAST AMMONIA COMPREHENSIVE METABOLIC PANEL CBC, EDIF, PLATELET LIPASE TOXICOLOGY DRUG SCREEN, URINE ECG Pantoprazole (PROTONIX) injection 40 mg Ondansetron 4mg/2ml (ZOFRAN) injection 4 mg multiple vitamin (MVI) 10 mL, Folic acid 1 mg, Thiamine (Vitamin B-1) 100 mg, Magnesium sulfate 2 g in Sodium chloride 0.9%, with overfill 1,065.2 mL (total volume) infusion LORazepam (ATIVAN) injection 1 mg diphenhydrAMINE (BENADRYL) injection 50 mg LORazepam (ATIVAN) injection 1 mg Haloperidol lactate (HALDOL) injection 2.5 mg LORazepam (ATIVAN) injection 1 mg Topiramate (TOPAMAX) tablet 100 mg Sodium chloride 0.9% IV solution URINALYSIS, MACRO HCG QUALITATIVE, URINE URINE MICROSCOPIC Results for orders placed or performed during the hospital encounter of 05/11/24 AMMONIA Result Value Ref Range AMMONIA <9 (L) 9 - 30 UMOL/L COMPREHENSIVE METABOLIC PANEL Result Value Ref Range Glucose 103 (H) 70 - 100 MG/DL BUN 13 7 - 20 MG/DL CREATININE SERUM 0.73 0.70 - 1.20 MG/DL SODIUM 138 137 - 145 MMOL/L POTASSIUM 3.3 (L) 3.5 - 5.1 MMOL/L CHLORIDE 106 98 - 107 MMOL/L CALCIUM 9.9 8.4 - 10.2 MG/DL PROTEIN, TOTAL 9.1 (H) 6.3 - 8.2 GM/DL Albumin 4.7 3.5 - 5.0 G/dl BILIRUBIN, TOTAL 2.2 (H) 0.2 - 1.3 MG/DL AST 51 (H) 14 - 36 IU/L ALKALINE PHOSPHATASE 87 38 - 126 IU/L CARBON DIOXIDE (CO2) 21 (L) 22 - 30 MMOL/L A/G Ratio 1.1 RATIO ALT 58 (H) <35 IU/L ESTIMATED GFR, NON AMER 98 ml/min/1.73sq.m ESTIMATED GFR, 119 ml/min/1.73sq.m GFR COMMENT Average GFR for 30-39 years old = 107. CBC, EDIF, PLATELET Result Value Ref Range WBC (WHITE BLOOD COUNT) 11.2 (H) 3.6 - 11.0 10*3/uL RBC 4.71 4.0 - 5.4 10*6/uL HEMOGLOBIN (HGB) 11.6 (L) 12.0 - 16.0 G/DL HEMATOCRIT (HCT) 35.5 (L) 36.0 - 48.0 % MEAN CELL VOLUME 75.2 (L) 80.0 - 100.0 FL Mean Cell HGB 24.5 (L) 26.0 - 35.0 PG MEAN CELL HGB CONCENTRATION 32.6 27.0 - 37.0 G/DL RBC DISTRIBUTION 17.1 (H) 11.5 - 14.5 % PLATELET COUNT 311 130 - 400 10*3/uL MEAN PLATELET VOLUME 8.4 7.4 - 11.0 FL DIFFERENTIAL TYPE AUTO DIFF % NEUTROPHILS 79.4 (H) 37.0 - 75.0 % LYMPHOCYTE 15.3 (L) 20.0 - 55.0 % MONOCYTE % 4.8 0.0 - 10.0 % EOSINOPHIL % 0.0 0.0 - 11.0 % BASOPHIL % 0.5 0.0 - 2.0 % Absolute Neutrophil Count 8.9 (H) 1.4 - 6.5 10*3/uL LYMPHOCYTES, ABSOLUTE 1.7 1.2 - 3.4 10*3/uL MONOCYTES, ABSOLUTE 0.5 0.0 - 0.7 10*3/uL ABSOLUTE EOSINOPHIL COUNT 0.0 0.0 - 0.7 10*3/uL ABSOLUTE BASOPHIL COUNT 0.1 0.0 - 0.2 10*3/uL LIPASE Result Value Ref Range LIPASE 47 23 - 300 U/L TOXICOLOGY DRUG SCREEN, URINE Result Value Ref Range CANNABINOIDS (MARIJUANA) POSITIVE (A) NEGATIVE NG/ML Cocaine Metabolite POSITIVE (A) NEGATIVE NG/ML Methamphetamine POSITIVE (A) NEGATIVE NG/ML Opiates NEGATIVE NEGATIVE NG/ML Amphetamine POSITIVE (A) NEGATIVE NG/ML Benzodiazepines NEGATIVE NEGATIVE NG/ML TRICYCLIC ANTIDEPRESSANTS SCREEN, URINE NEGATIVE NEGATIVE NG/ML Methadone NEGATIVE NEGATIVE NG/ML Barbiturate NEGATIVE NEGATIVE NG/ML Oxycodone NEGATIVE NEGATIVE NG/ML Buprenorphine NEGATIVE NEGATIVE NG/ML Fentanyl POSITIVE (A) NEGATIVE NG/ML URINALYSIS, MACRO Result Value Ref Range COLOR, URINE YELLOW YELLOW APPEARANCE, URINE CLEAR CLEAR Specific Mobile, Urine 1.020 1.010 - 1.025 PH URINE 8.5 (H) 5.0 - 7.0 Urine Protein 30 (A) NEGATIVE mg/dl GLUCOSE, URINE NEGATIVE NEGATIVE mg/dl KETONES, URINE 40 (A) NEGATIVE mg/dl BILIRUBIN, URINE NEGATIVE NEGATIVE BLOOD, URINE DIPSTICK NEGATIVE NEGATIVE NITRITES, URINE NEGATIVE NEGATIVE UROBILINOGEN, URINE 0.2 0.2 - 1.0 E.U./dL LEUKOCYTE ESTERASE, URINE NEGATIVE NEGATIVE HCG QUALITATIVE, URINE Result Value Ref Range HCG, QUALITATIVE, URINE NEGATIVE NEGATIVE URINE MICROSCOPIC Result Value Ref Range WBC, URINE 1 TO 5 NEGATIVE /HPF RBC, URINE 1 TO 5 NEGATIVE /HPF Epithelial Cells UA 1 TO 5 /HPF Mucus TRACE (A) NEGATIVE BACTERIA, URINE TRACE (A) NEGATIVE CRYSTALS, URINE NONE NONE CASTS, URINE NONE NONE /LPF COMMENT, URINE CULTURE CRITERIA NOT MET, NO CULTURE PERFORMED. Radiographic Imaging CT HEAD WITHOUT CONTRAST Final Result Impression: 1. No acute intracranial abnormality. Procedures: Procedures Moderate Sedation Procedure: No Patient is being treated with banana bag with 2 g of magnesium added to it. Have ordered Ativan and Benadryl for the patient as well to see if it helps with her agitation and anxiety. ED Summary/MDM This patient has continued to be agitated here in emergency department. Initially treated with Benadryl and Ativan. Given multiple doses of Ativan. Because of the continued agitation I did go ahead and obtain a CT scan of the brain. There was no acute abnormality on this. Her drug screen is positive for multiple substances. I do think this is at least part of the reason for her agitation and behavior. Patient is agitated. I did start her on IV maintenance fluids. At this time we are just observing her to see if this will resolve. 23:00 - patient has calmed down. She is sleeping and resting comfortably at this time. On recheck the patient is resting comfortably. She was sleeping. I can wake her and she is dramatically improved. No longer seems agitated like she was. At this point her workup in the emergency department is not showed any significant organic cause for her agitation other than drug abuse. We have kept her here and watched her. At this point it does appear that the significant side effects of the drugs have worn off. She is medically stable for discharge back to the nursing home. She can be rechecked at the [facility] in the nursing home tomorrow. To return if any other questions or concerns. She will be discharged in improved condition with the [facility] deputy who is taking her back to nursing home. Clinical Impression: 1. Agitation 2. Stimulant abuse 3. Opioid abuse No follow-ups on file. New Prescriptions No medications on file Discontinued Medications No medications on file An After Visit Summary was printed and given to the patient with above information. . Danyel Newell MD 05/11/242323 Dr. Newell at bedside Bed: E008 Expected date: Expected time: Means of arrival: Comments: Coming from [facility] documented in this encounter [facility] 05-11-2024 Hospital Discharg e instructions Danyel Newell MD - 05/11/2024 11:21 PM EDT Rest and lots of fluids over the next 2-3 days. Follow up at [facility] in nursing home for recheck tomorrow. The following attachments cannot be sent through Care Everywhere.Drug Overdose: Multidrug (Burmese)Substance Use Disorder: General Info (Burmese)Drug Overdose: Cocaine (Burmese)Oral Rehydration (Burmese)documented in this encounter [facility] 05-11-2024 Emergency department Note Per Dr. Newell, [facility] called for ride; advised sending deputy out at this time [facility] 05-11-2024 Emergency department Note Patient IV infiltrated. Patient writhing in bed, catheter was chcf out with stat lock, two tegaderm and coban. [facility] 05-11-2024 Emergency department Note [facility] contacted for records at this time [facility] 05-11-2024 Physician Emergency department Note Emergency Room Note [facility] EMERGENCY [facility] Service Date:.05/11/24 PCP: No primary care provider on file. Chief Complaint: Chief Complaint Patient presents with Drug Overdose Brought to nursing home [phone], Police states 1600 drug overdose with Narcan, taken to [facility] with workup. Brought back to nursing home to go to medical unit, medical unit stated unstable and unfit for admission. MARCELO Quintanilla is a 34 y.o. female presents to the ED today due to erratic behavior. Patient was arrested and taken to nursing home. When she was booked into the nursing home T she tested positive for amphetamine, cocaine, methamphetamine, marijuana, and fentanyl. She says that she also used heroin yesterday. Patient overdosed again on some sort of narcotic in the nursing home today. They treated her with Narcan. Took her to [facility] Emergency Department. The WD with her states that they did an EKG and some blood work and they discharged her with persistent agitation and erratic behavior so they brought her here for further evaluation. Patient really does not contribute any to history of present illness. Review of Systems: Review of Systems Review of systems is not reliable as the patient will sometimes answer questions and sometimes not and I do think that she is pain much attention to the questions. Past Medical History: No past medical history on file. Past Surgical History: No past surgical history on file. Allergies: Allergies Allergen Reactions Penicillins Medications: Patient's Medications No medications on file Family History: History reviewed. No pertinent family history. Social History: Social History Socioeconomic History Marital status: Single Spouse name: Not on file Number of children: Not on file Years of education: Not on file Highest education level: Not on file Occupational History Not on file Tobacco Use Smoking status: Unknown Smokeless tobacco: Not on file Substance and Sexual Activity Alcohol use: Not Currently Drug use: Yes Types: Methamphetamines, Cocaine, Marijuana, Fentanyl Comment: last use within past 24 hours Sexual activity: Not on file Other Topics Concern Not on file Social History Narrative Not on file Social Determinants of Health Financial Resource Strain: Not on file Food Insecurity: Not on file Transportation Needs: Not on file Physical Activity: Not on file Stress: Not on file Social Connections: Not on file Intimate Partner Violence: Not on file Housing Stability: Not on file Physical Exam: Physical Exam 34-year-old female he is awake and alert. She is agitated moving all extremities around. She will look at you when you speak to her and at times try to cooperate but she just keeps saying that she is anxious and can not sit still. She is able to follow some commands. She did try to sit still for the EKG when we asked her to. Her pupils are 4 mm and they do react. Extraocular movements are grossly intact. Mouth has pink moist mucosa. She is edentulous. Upper dentures are in place. The lowers has been removed. She has an ulcer almost midline at the vestibule of the mouth where the lower lip meets the mandible. Looks like either her dentures have been rubbed this or it is an aphthous ulcer. I do not see any abnormality of the tongue or submandibular area. I do not see any abnormality of the posterior pharynx. She handles secretions without difficulty. She does speak in a normal voice and there is no stridor. Her neck is supple her trachea is midline. Her lungs do have symmetrical breath sounds occasional rhonchi. She does not take deep breaths. Heart is regular on my exam. I do not hear an obvious murmur. Abdomen is soft and nontender. Femoral pulses symmetrical. Pelvis stable. I do not see any signs of trauma to the back and there was no tenderness over the back. There is no tenderness over the long bones upper or lower extremities. She moves all joints of the upper and lower extremities without difficulty. Coo strengths were symmetrical. She has multiple ulcers on her extremities. They do not look infected it looks as if she scratches at her skin regularly. Some track gonzalez but no evidence of cellulitis, lymphangitis, or abscess. Capillary refill is less than 2 seconds at this time. Vital Signs During ED Visit Patient Vitals for the past 24 hrs: BP Temp Temp src Pulse Resp SpO2 Height Weight 05/11/24 2300 98/54 -- -- 77 -- 94 % -- -- 05/11/24 2120 121/71 -- -- 100 (!) 56 96 % -- -- 05/11/242009 -- -- -- -- -- 100 % -- -- 05/11/241937 -- -- -- -- -- -- 1.651 m (5' 5) 72.6 kg (160 lb) 05/11/241935 -- 98.2 F (36.8 C) Oral 103 20 99 % -- -- EKG: Sinus rhythm at 99 beats per minute. LA interval is 128 milliseconds. QRS duration is 82 milliseconds. Ronceverte is normal. QT interval does appear to be prolonged for rate. There is baseline irregularity and nonspecific STT wave changes present. No acute ST-elevation in contiguous leads. No significant ectopy. Orders/Results: Orders Placed This Encounter CT HEAD WITHOUT CONTRAST AMMONIA COMPREHENSIVE METABOLIC PANEL CBC, EDIF, PLATELET LIPASE TOXICOLOGY DRUG SCREEN, URINE ECG Pantoprazole (PROTONIX) injection 40 mg Ondansetron 4mg/2ml (ZOFRAN) injection 4 mg multiple vitamin (MVI) 10 mL, Folic acid 1 mg, Thiamine (Vitamin B-1) 100 mg, Magnesium sulfate 2 g in Sodium chloride 0.9%, with overfill 1,065.2 mL (total volume) infusion LORazepam (ATIVAN) injection 1 mg diphenhydrAMINE (BENADRYL) injection 50 mg LORazepam (ATIVAN) injection 1 mg Haloperidol lactate (HALDOL) injection 2.5 mg LORazepam (ATIVAN) injection 1 mg Topiramate (TOPAMAX) tablet 100 mg Sodium chloride 0.9% IV solution URINALYSIS, MACRO HCG QUALITATIVE, URINE URINE MICROSCOPIC Results for orders placed or performed during the hospital encounter of 05/11/24 AMMONIA Result Value Ref Range AMMONIA <9 (L) 9 - 30 UMOL/L COMPREHENSIVE METABOLIC PANEL Result Value Ref Range Glucose 103 (H) 70 - 100 MG/DL BUN 13 7 - 20 MG/DL CREATININE SERUM 0.73 0.70 - 1.20 MG/DL SODIUM 138 137 - 145 MMOL/L POTASSIUM 3.3 (L) 3.5 - 5.1 MMOL/L CHLORIDE 106 98 - 107 MMOL/L CALCIUM 9.9 8.4 - 10.2 MG/DL PROTEIN, TOTAL 9.1 (H) 6.3 - 8.2 GM/DL Albumin 4.7 3.5 - 5.0 G/dl BILIRUBIN, TOTAL 2.2 (H) 0.2 - 1.3 MG/DL AST 51 (H) 14 - 36 IU/L ALKALINE PHOSPHATASE 87 38 - 126 IU/L CARBON DIOXIDE (CO2) 21 (L) 22 - 30 MMOL/L A/G Ratio 1.1 RATIO ALT 58 (H) <35 IU/L ESTIMATED GFR, NON AMER 98 ml/min/1.73sq.m ESTIMATED GFR, 119 ml/min/1.73sq.m GFR COMMENT Average GFR for 30-39 years old = 107. CBC, EDIF, PLATELET Result Value Ref Range WBC (WHITE BLOOD COUNT) 11.2 (H) 3.6 - 11.0 10*3/uL RBC 4.71 4.0 - 5.4 10*6/uL HEMOGLOBIN (HGB) 11.6 (L) 12.0 - 16.0 G/DL HEMATOCRIT (HCT) 35.5 (L) 36.0 - 48.0 % MEAN CELL VOLUME 75.2 (L) 80.0 - 100.0 FL Mean Cell HGB 24.5 (L) 26.0 - 35.0 PG MEAN CELL HGB CONCENTRATION 32.6 27.0 - 37.0 G/DL RBC DISTRIBUTION 17.1 (H) 11.5 - 14.5 % PLATELET COUNT 311 130 - 400 10*3/uL MEAN PLATELET VOLUME 8.4 7.4 - 11.0 FL DIFFERENTIAL TYPE AUTO DIFF % NEUTROPHILS 79.4 (H) 37.0 - 75.0 % LYMPHOCYTE 15.3 (L) 20.0 - 55.0 % MONOCYTE % 4.8 0.0 - 10.0 % EOSINOPHIL % 0.0 0.0 - 11.0 % BASOPHIL % 0.5 0.0 - 2.0 % Absolute Neutrophil Count 8.9 (H) 1.4 - 6.5 10*3/uL LYMPHOCYTES, ABSOLUTE 1.7 1.2 - 3.4 10*3/uL MONOCYTES, ABSOLUTE 0.5 0.0 - 0.7 10*3/uL ABSOLUTE EOSINOPHIL COUNT 0.0 0.0 - 0.7 10*3/uL ABSOLUTE BASOPHIL COUNT 0.1 0.0 - 0.2 10*3/uL LIPASE Result Value Ref Range LIPASE 47 23 - 300 U/L TOXICOLOGY DRUG SCREEN, URINE Result Value Ref Range CANNABINOIDS (MARIJUANA) POSITIVE (A) NEGATIVE NG/ML Cocaine Metabolite POSITIVE (A) NEGATIVE NG/ML Methamphetamine POSITIVE (A) NEGATIVE NG/ML Opiates NEGATIVE NEGATIVE NG/ML Amphetamine POSITIVE (A) NEGATIVE NG/ML Benzodiazepines NEGATIVE NEGATIVE NG/ML TRICYCLIC ANTIDEPRESSANTS SCREEN, URINE NEGATIVE NEGATIVE NG/ML Methadone NEGATIVE NEGATIVE NG/ML Barbiturate NEGATIVE NEGATIVE NG/ML Oxycodone NEGATIVE NEGATIVE NG/ML Buprenorphine NEGATIVE NEGATIVE NG/ML Fentanyl POSITIVE (A) NEGATIVE NG/ML URINALYSIS, MACRO Result Value Ref Range COLOR, URINE YELLOW YELLOW APPEARANCE, URINE CLEAR CLEAR Specific Mobile, Urine 1.020 1.010 - 1.025 PH URINE 8.5 (H) 5.0 - 7.0 Urine Protein 30 (A) NEGATIVE mg/dl GLUCOSE, URINE NEGATIVE NEGATIVE mg/dl KETONES, URINE 40 (A) NEGATIVE mg/dl BILIRUBIN, URINE NEGATIVE NEGATIVE BLOOD, URINE DIPSTICK NEGATIVE NEGATIVE NITRITES, URINE NEGATIVE NEGATIVE UROBILINOGEN, URINE 0.2 0.2 - 1.0 E.U./dL LEUKOCYTE ESTERASE, URINE NEGATIVE NEGATIVE HCG QUALITATIVE, URINE Result Value Ref Range HCG, QUALITATIVE, URINE NEGATIVE NEGATIVE URINE MICROSCOPIC Result Value Ref Range WBC, URINE 1 TO 5 NEGATIVE /HPF RBC, URINE 1 TO 5 NEGATIVE /HPF Epithelial Cells UA 1 TO 5 /HPF Mucus TRACE (A) NEGATIVE BACTERIA, URINE TRACE (A) NEGATIVE CRYSTALS, URINE NONE NONE CASTS, URINE NONE NONE /LPF COMMENT, URINE CULTURE CRITERIA NOT MET, NO CULTURE PERFORMED. Radiographic Imaging CT HEAD WITHOUT CONTRAST Final Result Impression: 1. No acute intracranial abnormality. Procedures: Procedures Moderate Sedation Procedure: No Patient is being treated with banana bag with 2 g of magnesium added to it. Have ordered Ativan and Benadryl for the patient as well to see if it helps with her agitation and anxiety. ED Summary/MDM This patient has continued to be agitated here in emergency department. Initially treated with Benadryl and Ativan. Given multiple doses of Ativan. Because of the continued agitation I did go ahead and obtain a CT scan of the brain. There was no acute abnormality on this. Her drug screen is positive for multiple substances. I do think this is at least part of the reason for her agitation and behavior. Patient is agitated. I did start her on IV maintenance fluids. At this time we are just observing her to see if this will resolve. 23:00 - patient has calmed down. She is sleeping and resting comfortably at this time. On recheck the patient is resting comfortably. She was sleeping. I can wake her and she is dramatically improved. No longer seems agitated like she was. At this point her workup in the emergency department is not showed any significant organic cause for her agitation other than drug abuse. We have kept her here and watched her. At this point it does appear that the significant side effects of the drugs have worn off. She is medically stable for discharge back to the nursing home. She can be rechecked at the [facility] in the nursing home tomorrow. To return if any other questions or concerns. She will be discharged in improved condition with the [facility] deputy who is taking her back to nursing home. Clinical Impression: 1. Agitation 2. Stimulant abuse 3. Opioid abuse No follow-ups on file. New Prescriptions No medications on file Discontinued Medications No medications on file An After Visit Summary was printed and given to the patient with above information. . Danyel Newell MD 05/11/246 [facility] 05-11-[address] Newell at bedside [facility] 05-11-2024 Emergency department Note Bed: E008 Expected date: Expected time: Means of arrival: Comments: Coming from [facility] 03-27-2023 Evaluation + Plan note Associated Problem(s): Polysubstance dependence (HCC) 1. Previously going to methadone clinic when I saw her in November 2022, however she states she is no longer going there and has returned to using heroin again. 2. Encouraged to get back into treatment program. Offered referral to Addiction Medicine but she declined. Encouraged her to call if she changes her mind and would like me to place that referral. [facility] 03-27-2023 Miscellaneous Notes Associated Problem(s): Polysubstance dependence (HCC) 1. Previously going to methadone clinic when I saw her in November 2022, however she states she is no longer going there and has returned to using heroin again. 2. Encouraged to get back into treatment program. Offered referral to Addiction Medicine but she declined. Encouraged her to call if she changes her mind and would like me to place that referral. Associated Problem(s): Psychogenic nonepileptic seizure 1. Recommended at previous OV to start lamotrigine for seizures, but also to help with mood stabilization. She did not start this. We discussed the taper dose instructions again today and she states she still has the medication at home. Encouraged her to call if she needs a script or refills 2. Reports a couple seizures since last follow-up. Episodes are frequently brought on by stress. 3. Encouraged her to continue with counseling that is provided through her program. 4. Referral for behavioral health was previously placed but she has not scheduled an appointment. 5. Seizure precautions and safety measures discussed with seizure education placed in AVS 6. Follow-up in 6 months. documented in this encounter [facility] 03-27-2023 Evaluation + Plan note Associated Problem(s): Psychogenic nonepileptic seizure 1. Recommended at previous OV to start lamotrigine for seizures, but also to help with mood stabilization. She did not start this. We discussed the taper dose instructions again today and she states she still has the medication at home. Encouraged her to call if she needs a script or refills 2. Reports a couple seizures since last follow-up. Episodes are frequently brought on by stress. 3. Encouraged her to continue with counseling that is provided through her program. 4. Referral for behavioral health was previously placed but she has not scheduled an appointment. 5. Seizure precautions and safety measures discussed with seizure education placed in AVS 6. Follow-up in 6 months. [facility] 03-10-2023 Instructions Clarissa Lopez CNP - 03/10/2023 2:17 PM EDT Reschedule your appointment with Maria Esther Noe CNP . She is your PCP you were getting set up with. Referral to behavioral health was placed previously. I encourage you to call to get that appointment scheduled. Referral to pain management was also previously placed with Dr. Faria. Please call to have your appointment scheduled [phone] I encourage you to restart the lamotrigine. This is helpful for not only bipolar disorder but also non-epileptic spells. Start with 25 mg (1 tablet) at bedtime for 2 weeks 50 mg (2 tablets) at bedtime for 2 weeks 50 mg (2 tablet) twice a day. Please let me know if and when you need refills of your medication! You told me you still have this script at home. If you find out you do not have the script please call so I can get a new one sent in. Please get set back up with the methadone clinic. Please call if there is anything I can do to help you get back on track. documented in this encounter [facility] 03-10-2023 History of Presen t illness Narrative Subjective Patient ID: Yoel Quintanilla is a 33 y.o. female. Assessment/Plan: Problem List Psychogenic nonepileptic seizure - Primary Recommended at previous OV to start lamotrigine for seizures, but also to help with mood stabilization. She did not start this. We discussed the taper dose instructions again today and she states she still has the medication at home. Encouraged her to call if she needs a script or refills Reports a couple seizures since last follow-up. Episodes are frequently brought on by stress. Encouraged her to continue with counseling that is provided through her program. Referral for behavioral health was previously placed but she has not scheduled an appointment. Seizure precautions and safety measures discussed with seizure education placed in AVS Follow-up in 6 months. Polysubstance dependence (HCC) Previously going to methadone clinic when I saw her in November 2022, however she states she is no longer going there and has returned to using heroin again. Encouraged to get back into treatment program. Offered referral to Addiction Medicine but she declined. Encouraged her to call if she changes her mind and would like me to place that referral. Follow-up in 6 months. Time statement: A total of 40 minutes were spent on this encounter, which includes the time reviewing the patient's diagnostic tests, seeing the patient, speaking with nursing staff, and documenting in the record. Clarissa Lopez, MSN, CLINICAL NURSE EDUCATOR [facility] Neu[facility] HPI Update 03/10/2023: Patient states she will get an aura of feeling like she is stuck in a dream and then she will feel like her eyes are in a stare. She states that her seizures are triggered mostly by increased anxiety. She states she has had a couple seizures in the last 3 months. Most recent seizure occurred on 03/08/2023. She state she was caught shoplifting at [facility] and the photonic laboratory technician were called. After the photonic laboratory technician arrived she states she had an episode. Her last episode prior to that was early part of January, which was also also triggered by anxiety. When I saw her in November she was on Methadone at [facility] in [place] for heroin addiction. She states she is no longer in the program and back to using heroin. She states she just uses a little bit here and there. She verbalizes that she is planning to go back to the program. She denies other drug use. She is currently staying with a friend and identifies this friend as a positive resource for her. She never started the lamotrigine that was previously ordered. Update 11/27/2022: Returns for appointment today. She comes to her appointment today alone. Her condition today is remarkably improved compared to her previous visit. She is currently on Methodone at [facility] in [place]. She started this on Friday and gets 30 mg daily. She denies any side effects or issues thus far since starting the medication . She reports 2 seizures last month. She states these are trauma induced events, especially in the setting of increased stress and anxiety. She does not see a psychiatrist. She is required to do counseling through [facility] program. She admits to marijuana use. She does not have a marijuana card but she admits to smoking on almost a daily basis. Update 09/19/2022: Patient was scheduled for follow-up today at 1015. She checked in at 1033 and waited in the lobby to be rescheduled. Registration staff called her name several times and she did not respond. I was notified by animal control officer staff that she was in the lobby not responding. I immediately went out to the lobby where she was sitting in a chair slumped over with a registration staff member kneeling, checking her pulse. Staff had tried multiple times without success. I grabbed her shoulder slightly shaking her. Her eyes opened and I asked her if she took anything prior to coming in to her appointment. She immediately got up from her chair and quickly walked out the door stating she had to go. This is her 3rd attempt at an appointment to follow-up on her pseudoseizure. She no showed to her appointment on 07/30/2022 and 04/22/2022. Her last office visit was 10/23/2021. She received a refill on 08/03/2022 and was told at that time that no further refills would be submitted until she was seen in the office for follow-up. Update 10/20/2021: Yoel Quintanilla is a 31 year old female who presents today for follow-up on her seizures. Her last appointment in our office was 03/19/[address] Crowder saw her in the hospital November 2014 with recurrent seizures. She has a history of recurrent syncope/seizure like episodes without warning. Today, she reports that sometimes she will get a ken vu sensation. Seizures have been described as generalized tonic-clonic. She was previously on Lamictal for mood stabilization but she is no longer taking this. She takes gabapentin 800 mg TID for seizures and sciatica pain improved when starting this. She reports she needs refills of her medication today. Last seizure/spell was 2 months ago (July 2021). She has a history of anxiety, depression, PTSD, bipolar disorder, and schizophrenia. She is not currently under care for her mental health. She reports she has seen a psychiatrist in the past but has not seen one for about 4 or 5 years now. She is currently in counseling and states this is helpful. She denies any HI/SI. Spells/seizures have been precipitated by stress. Has completed cognitive behavioral therapy in the past but cannot recall whether this was helpful or not. She currently uses heroin. She denies any alcohol abuse or other recreational drug use. EEG 11/13/2016: Normal. senior care video EEG ([facility]) 01/24/2016: Multiple whole body shaking spells in quick succession on the afternoon of 01/22 as described above and one the following morning. These event had no EEG correlate and appear both clinically and electrographically NON-epileptic. Clinical correlation with target events required. No interictal epileptiform discharges or electrographic seizures captured but this does not rule out a co-morbid epilepsy diagnosis. MRI Brain 12/11/2015: Normal. senior care video EEG ([facility]) 12/13/2015: Normal background activity. One captured clinical event as described above. This event was clinically and electrographically NON-epileptic in nature. No interictal epileptiform discharges or electrographic seizures were captured although this does not rule out a potential co-existing diagnosis of epilepsy. EEG 12/11/2015: Normal. Review of patients current medication list along with allergies, past medical history, surgical history, family history, and social history was reviewed and updated as appropriate. Review of Systems Constitutional: Negative for activity change, appetite change, chills, fatigue, fever and unexpected weight change. HENT: Negative for trouble swallowing. Eyes: Negative for visual disturbance. Respiratory: Negative for cough, shortness of breath and wheezing. Cardiovascular: Negative for chest pain and palpitations. Gastrointestinal: Negative for abdominal pain, nausea and vomiting. Endocrine: Negative for polydipsia, polyphagia and polyuria. Genitourinary: Negative for difficulty urinating. Musculoskeletal: Negative for arthralgias, back pain and neck pain. Skin: Negative for rash. Neurological: Negative for dizziness, tremors, seizures, syncope, weakness, light-headedness and headaches. Psychiatric/Behavioral: Positive for dysphoric mood. Negative for confusion, decreased concentration, self-injury, sleep disturbance and suicidal ideas. The patient is nervous/anxious. Objective BP 118/77 (BP Location: Left arm, Patient Position: Sitting, BP Cuff Size: Adult) Pulse 96 Resp 16 SpO2 100% Neurologic Exam Mental Status Oriented to person, place, and time. Attention: normal. Concentration: normal. Speech: speech is normal (Clear, spontaneous, and fluent. ) Level of consciousness: alert Knowledge: good. Cranial Nerves Cranial nerves II through XII intact. CN III, IV, Pupils are equal, round, and reactive to light. Extraocular motions are normal. Right pupil: Size: 2 mm. Consensual response: intact. Accommodation: intact. Left pupil: Size: 2 mm. Consensual response: intact. Accommodation: intact. CN III: no CN III palsy CN : no CN palsy Nystagmus: none Diplopia: none Ophthalmoparesis: none Upgaze: normal Downgaze: normal Conjugate gaze: present Motor Exam Muscle bulk: normal Overall muscle tone: normal Right arm pronator drift: absent Left arm pronator drift: absent Strength Strength 5/5 throughout. Sensory Exam Light touch normal. Gait, Coordination, and Reflexes Gait Gait: normal (Steady gait. Ambulates without assistive device.) Coordination Romberg: negative Finger to nose coordination: normal Tremor Resting tremor: absent Intention tremor: absent Action tremor: absent Reflexes Reflexes 2+ except as noted. Right biceps: 2+ Left biceps: 2+ Right triceps: 2+ Left triceps: 2+ Right patellar: 2+ Left patellar: 2+ Physical Exam Vitals and nursing note reviewed. Constitutional: Appearance: She is well-developed. Comments: Patient is very pleasant and cooperative for exam. She is well groomed and dressed appropriate for season. She is wearing a surgical mask in compliance with the current COVID-19 guidelines. HENT: Head: Normocephalic and atraumatic. Eyes: Extraocular Movements: EOM normal. Pupils: Pupils are equal, round, and reactive to light. Cardiovascular: Rate and Rhythm: Normal rate and regular rhythm. Heart sounds: No murmur heard. Pulmonary: Effort: Pulmonary effort is normal. No respiratory distress. Breath sounds: Normal breath sounds. No wheezing. Abdominal: General: Bowel sounds are normal. There is no distension. Palpations: Abdomen is soft. Musculoskeletal: General: Normal range of motion. Cervical back: Normal range of motion and neck supple. Skin: General: Skin is warm and dry. Findings: No rash. Neurological: Mental Status: She is alert and oriented to person, place, and time. Cranial Nerves: Cranial nerves 2-12 are intact. Motor: Motor strength is normal. Coordination: Vrdevw-Bgoy-Mcgyyl Test and Romberg Test normal. Gait: Gait is intact. Deep Tendon Reflexes: Reflex Scores: Tricep reflexes are 2+ on the right side and 2+ on the left side. Bicep reflexes are 2+ on the right side and 2+ on the left side. Patellar reflexes are 2+ on the right side and 2+ on the left side. Psychiatric: Speech: Speech normal. Behavior: Behavior normal. Thought Content: Thought content normal. Judgment: Judgment normal. documented in this encounter [facility] 12-18-2022 Evaluation + Plan note Associated Problem(s): Sciatic leg pain 1. Previously on gabapentin for this. 2. Referral for pain management placed. [facility] 12-18-2022 Miscellaneous Notes Associated Problem(s): Sciatic leg pain 1. Previously on gabapentin for this. 2. Referral for pain management placed. Associated Problem(s): Polysubstance dependence (HCC) 1. Currently on methadone and following with [facility] in [place]. Associated Problem(s): Psychogenic nonepileptic seizure 1. Previously on gabapentin, which was mainly prescribed or her chronic back pain. She is not currently on any seizure medication. 2. Reports she had 2 spells/seizures last month. She recently started at [facility] in [place] to combat her drug addition. She is currently on methadone for this. 3. Encouraged her to continue with counseling that is provided through her program. 4. Start lamotrigine 25 mg daily for 2 weeks, then increase to 50 mg daily. 5. Referral for behavioral health placed. Encouraged to call if she has not heard anything about her referral within 2 weeks. documented in this encounter [facility] 12-18-2022 Evaluation + Plan note Associated Problem(s): Polysubstance dependence (HCC) 1. Currently on methadone and following with [facility] in [place]. [facility] 12-18-2022 Evaluation + Plan note Associated Problem(s): Psychogenic nonepileptic seizure 1. Previously on gabapentin, which was mainly prescribed or her chronic back pain. She is not currently on any seizure medication. 2. Reports she had 2 spells/seizures last month. She recently started at [facility] in [place] to combat her drug addition. She is currently on methadone for this. 3. Encouraged her to continue with counseling that is provided through her program. 4. Start lamotrigine 25 mg daily for 2 weeks, then increase to 50 mg daily. 5. Referral for behavioral health placed. Encouraged to call if she has not heard anything about her referral within 2 weeks. [facility] 11-27-2022 Instructions Clarissa Lopez CNP - 11/27/2022 1:21 PM EST Reschedule your appointment with Maria Esther Noe CNP Referral to behavioral health. Referral to pain management. Lamotrigine for bipolar disorder and non-epileptic spells. Start with 25 mg at bedtime for 2 weeks 50 mg (2 tablets) at bedtime for 2 weeks Call with any further questions or new changes. Follow-up in 3 months or sooner as needed. If you don't hear from the new referrals within 2 weeks call us so we can check on the status of the referral. documented in this encounter [facility] 11-27-2022 History of Presen t illness Narrative Subjective Patient ID: Yoel Quintanilla is a 32 y.o. female. Assessment/Plan: Problem List Psychogenic nonepileptic seizure - Primary Previously on gabapentin, which was mainly prescribed or her chronic back pain. She is not currently on any seizure medication. Reports she had 2 spells/seizures last month. She recently started at [facility] in [place] to combat her drug addition. She is currently on methadone for this. Encouraged her to continue with counseling that is provided through her program. Start lamotrigine 25 mg daily for 2 weeks, then increase to 50 mg daily. Referral for behavioral health placed. Encouraged to call if she has not heard anything about her referral within 2 weeks. Relevant Medications lamoTRIgine (LAMICTAL) 25 MG tablet Other Relevant Orders Ambulatory referral to Behavioral Health Polysubstance dependence (HCC) Currently on methadone and following with [facility] in [place]. Mood disorder (HCC) Bipolar disorder (HCC) Relevant Medications lamoTRIgine (LAMICTAL) 25 MG tablet Other Relevant Orders Ambulatory referral to Behavioral Health Sciatic leg pain Previously on gabapentin for this. Referral for pain management placed. Relevant Orders Ambulatory referral to Pain Medicine Follow-up in 6 months. Patient is aware she needs to keep follow-up appointments to remain compliant for refills. Time statement: A total of 45 minutes were spent on this encounter, which includes the time reviewing the patient's diagnostic tests, seeing the patient, speaking with nursing staff, and documenting in the record. Clarissa Lopez, MSN, CLINICAL NURSE EDUCATOR [facility] Neu[facility] HPI Update 11/27/2022: Returns for appointment today. She comes to her appointment today alone. Her condition today is remarkably improved compared to her previous visit. She is currently on Methodone at [facility] in [place]. She started this on Friday and gets 30 mg daily. She denies any side effects or issues thus far since starting the medication . She reports 2 seizures last month. She states these are trauma induced events, especially in the setting of increased stress and anxiety. She does not see a psychiatrist. She is required to do counseling through [facility] program. She admits to marijuana use. She does not have a marijuana card but she admits to smoking on almost a daily basis. Update 09/19/2022: Patient was scheduled for follow-up today at 1015. She checked in at 1033 and waited in the lobby to be rescheduled. Registration staff called her name several times and she did not respond. I was notified by animal control officer staff that she was in the lobby not responding. I immediately went out to the lobby where she was sitting in a chair slumped over with a registration staff member kneeling, checking her pulse. Staff had tried multiple times without success. I grabbed her shoulder slightly shaking her. Her eyes opened and I asked her if she took anything prior to coming in to her appointment. She immediately got up from her chair and quickly walked out the door stating she had to go. This is her 3rd attempt at an appointment to follow-up on her pseudoseizure. She no showed to her appointment on 07/30/2022 and 04/22/2022. Her last office visit was 10/23/2021. She received a refill on 08/03/2022 and was told at that time that no further refills would be submitted until she was seen in the office for follow-up. Update 10/20/2021: Yoel Quintanilla is a 31 year old female who presents today for follow-up on her seizures. Her last appointment in our office was 03/19/[address] Crowder saw her in the hospital November 2014 with recurrent seizures. She has a history of recurrent syncope/seizure like episodes without warning. Today, she reports that sometimes she will get a ken vu sensation. Seizures have been described as generalized tonic-clonic. She was previously on Lamictal for mood stabilization but she is no longer taking this. She takes gabapentin 800 mg TID for seizures and sciatica pain improved when starting this. She reports she needs refills of her medication today. Last seizure/spell was 2 months ago (July 2021). She has a history of anxiety, depression, PTSD, bipolar disorder, and schizophrenia. She is not currently under care for her mental health. She reports she has seen a psychiatrist in the past but has not seen one for about 4 or 5 years now. She is currently in counseling and states this is helpful. She denies any HI/SI. Spells/seizures have been precipitated by stress. Has completed cognitive behavioral therapy in the past but cannot recall whether this was helpful or not. She currently uses heroin. She denies any alcohol abuse or other recreational drug use. EEG 11/13/2016: Normal. senior care video EEG ([facility]) 01/24/2016: Multiple whole body shaking spells in quick succession on the afternoon of 01/22 as described above and one the following morning. These event had no EEG correlate and appear both clinically and electrographically NON-epileptic. Clinical correlation with target events required. No interictal epileptiform discharges or electrographic seizures captured but this does not rule out a co-morbid epilepsy diagnosis. MRI Brain 12/11/2015: Normal. boat painter video EEG ([facility]) 12/13/2015: Normal background activity. One captured clinical event as described above. This event was clinically and electrographically NON-epileptic in nature. No interictal epileptiform discharges or electrographic seizures were captured although this does not rule out a potential co-existing diagnosis of epilepsy. EEG 12/11/2015: Normal. Review of patients current medication list along with allergies, past medical history, surgical history, family history, and social history was reviewed and updated as appropriate. Review of Systems Constitutional: Negative for activity change, appetite change, chills, fatigue, fever and unexpected weight change. HENT: Negative for trouble swallowing. Eyes: Negative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 information concerning a client made to you with the consent of such client. Section Author: Codi Donnelly PROHIBITION ON REDISCLOSURE OF CONFIDENTIAL INFORMATION This notice accompanies a disclosure of information concerning a client made to you with the consent of such client. FOR RECORDS PERTAINING TO PATIENTS WHO ARE OR HAVE BEEN ENROLLED IN A CHEMICAL DEPENDENCY/SUBSTANCEABUSE PROGRAM, SOME INFORMATION MAY BE OMITTED. This clinical summary was aggregated from multiple sources. Caution should be exercised in using it in the provision of clinical care. This summary normalizes information from multiple sources, and as a consequence, information in this document may materially change the coding, format and clinical context of patient data. In addition, data may be omitted in some cases. CLINICAL DECISIONS SHOULD BE BASED ON THE PRIMARY CLINICAL RECORDS. [facility]. provides no warranty or guarantee of the accuracy or completeness of information in this document.
--- OUTSIDE RECORDS SUMMARY | 2025-04-12 21:15 | XMS RPT_ITS | CCD ---
Author Organization [facility] Care Team Providers Care Solar Sales Associate Name Role Phone Criss Larry Unavailable Unavailable [...] vailable Criss Larry Primary Care Provider [phone] Criss Larry Primary Care Provider NONE, NONE Primary Care Unavailable ROSELIA BOURGEOIS A Admitting Unavailable ROSELIA BOURGEOIS A Attending Unavailable NONE, NONE Consulting Unavailable LaronCriss novoa CNP Primary Care Provider Criss Larry CNP Primary Care Provider Ceci Lal CNP Unavailable [phone] Lance GONSALES, Amanda Gannon Unavailable Preston GONSALES, Susannah Muñoz Unavailable Shireen DONG, Salud Mchugh Unavailable LaronCriss novoa CNP Primary Care Provider [facility], Ceci Burnettee Unavailable Lance GONSALES, Amanda Gannon Unavailable Susannah Johnston MD Unavailable Shireen VALLECILLO, Salud Lolita Unavailable No, Physician Primary Care Provider Unavailabl e Required, No Pcp Unavailable Unavailable Vazquez, Camron Unavailable Vazquez, PAC Camron Attending Unavailable Vazquez, PAC Camron Attending Unavailable [facility], Ceci Lore Unavailable Lance GONSALES, Amanda Gannon Unavailable Preston GONSALES, Susannah Muñoz Unavailable Shireenprudencio VALLECILLO, Salud Lolita Unavailable No, Physician Primary Care Provider Unavailsaroj Cox MD, Maycol Hood Unavailable [facility], Criss Lantigua Primary Care Provider No, Physician Primary Care Provider Unavailabl e Candice INTERNAL CONSULTANT, Guerline Hinton Primary Care Provider Unavailable Primary Care Provider Unavailabl e DANYEL NEWELL Attending Unavailable Rickey GONSALES, Susannah Muñoz Unavailable BETHANY CROWDER Attending Unavailable GUERLINE HARVEY Primary [...] (antibiotic) (1 source) Penicillins Drug Allergy 6 [facility] Work Phone: (14 sources) Penicillins; Translations: [penicillins] Propensity to adverse reactions to drug 6 Hives [facility] (1 source) No Known Allergies; Translations: [No Known Allergies] Propensity to adverse reactions to drug (disorder) [facility]ository (1 source) Penicillins Drug allergy (disorder) [facility] Repository (5 sources) Penicillins Propensity to adverse reactions to drug 6 [facility] Work Phone: (8 sources) Penicillins Propensity to adverse reactions to drug 6 [facility] Work Phone: (2 sources) Penicillin Drug Allergy Rash [facility] (1 source) Penicillins Propensity to adverse reactions to drug 4 [facility] (1 source) Penicillins Propensity to adverse reactions to drug 6 [facility] Work Phone: (1 source) Penicillins Drug allergy (disorder) 0 [facility] Medications Current Medications Medication Drug Class(es) [...] . 10/06/2024 Active Start: 08-02-2022 End: 08-08-2022 Hszekdov-TEO-4 0.1 mg/24 hr transdermal film, extended release [...] Antagonist Start: 06-10-2022 naloxone (NARCAN) 4 mg/actuation [place] Indications: Psychogenic nonepileptic seizure Administer 1 spray into one nostril for known or suspected opioid overdose. If patient worsens or does not respond, may repeat in 2-3 minutes. . 2 each 0 06/10/2022 Active Start: 04-26-2019 End: 04-26-2019 naloxone (NARCAN) injection 2 mg naloxone (NARCAN) 4 mg/actuation [place] (2 sources) Start: 06-10-2022 naloxone (NARC AN) 4 mg/actuation [place] Indications: Psychogenic nonepileptic seizure Administer 1 spray [...] tab(s) sublingually 2 times a day ANGELA: [id number] Quantity: 6 Refills: 0 Ordered: 15-Jul-2022 Camron Shukla Start: 15-Jul-2022 End: 17-Jul-2022 Status: Other Generic Substitution Allowed Comments: Caution [place] prohibits the transfer of this drug [...] with its effects. 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 [facility] offers profiles that will automatically reflex positive HAV total antibody results to IgM (e.g., panel #[id number] HAV Antibody w/ Rfx). TESTING PERFORMED AT [facility]. ORIGINAL REPORT ON FILE IN LAB CONTAINS ADDITIONAL TEST SITE INFORMATION. Performed By: #### L 3890.6006, L503.0106, L506.1001, L500.4050, L7000.7000, L500.4100, L3890.6102, L7000.8000, L3890.6202, L300.3900, L100.0500, L3100.0300, L3410.9992 #### [facility] [address] [place], [place], [id number] Hepatitis C Genotypeon 03-28 HEP C GENOTYPE Normal [facility] Comment on above: Result Comment: TEST RESULTS LIMITS Hepatitis C Genotype, This sample had sufficient HCV RNA as determined by quantitative methods, but unable to determine the genotype on repeated attempts TESTING PERFORMED AT [facility]. ORIGINAL REPORT ON FILE IN LAB CONTAINS ADDITIONAL TEST SITE INFORMATION. Performed By: #### L 3890.6006, L503.0106, L506.1001, L500.4050, L7000.7000, L500.4100, L3890.6102, L7000.8000, L3890.6202, L300.3900, L100.0500, L3100.0300, L3410.9992 #### [facility] [address] 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, [address] L3410.9992on 02-18-2025 [facility]. COMMENT Normal . [facility] Comment on above: Order Comment: 25327 3 HEP C FIBROSURE TIGER RMT Result Comment: Test Ordered: [id number] HCV FibroSure Fibrosis Score 0.10 BN Reference [...] developed and its performance characteristics determined by [employer]. It has not been cleared or approved by the Food and Drug Administration. The FDA has determined that such clearance or approval is not necessary. For questions regarding this report please contact customer service at . Performed at: [facility] [employer] [id number] Embedder: Mell Domingo MD, Phone: [phone] Performed at: [address] [id number] Embedder: Micha Neri PhD, Phone: [phone] Performed By: #### L 3890.6006, L503.0106, L506.1001, L500.4050, L7000.7000, L500.4100, L3890.6102, L7000.8000, L3890.6202, L300.3900, L100.0500, L3100.0300, L3410.9992 #### [facility] [address] [facility] [place], [address] CBC-Complete Blood Cnt No Di ffon 02-15-2025 Erythrocyte distribution width (RBC) [Ratio] 13.5 % Normal 11.6-14.6 [facility] Comment on above: Performed By: #### L 3890.6006, L503.0106, L506.1001, L500.4050, L7000.7000, L500.4100, L3890.6102, L7000.8000, L3890.6202, L300.3900, L100.0500, L3100.0300, L3410.9992 #### [facility] [address] [place], [address] Hematocrit (Bld) [Volume fraction] 34.1 % Low 37-47 [facility] Comment on above: Performed By: #### L 3890.6006, L503.0106, L506.1001, L500.4050, L7000.7000, L500.4100, L3890.6102, L7000.8000, L3890.6202, L300.3900, L100.0500, L3100.0300, L3410.9992 #### [facility] [address] [facility] [place], [address] Hemoglobin (Bld) [Mass/Vol] 11.5 g/dL Low 12.0-15.0 [facility] Comment on above: Performed By: #### L 3890.6006, L503.0106, L506.1001, L500.4050, L7000.7000, L500.4100, L3890.6102, L7000.8000, L3890.6202, L300.3900, L100.0500, L3100.0300, L3410.9992 #### [facility] [address] [place], [address] MCH (RBC) [Entitic mass] 26.7 pg Low 27.0-32.0 [facility] Comment on above: Performed By: #### L 3890.6006, L503.0106, L506.1001, L500.4050, L7000.7000, L500.4100, L3890.6102, L7000.8000, L3890.6202, L300.3900, L100.0500, L3100.0300, L3410.9992 #### [facility] [address] [place], [place], [phone] (189) MCHC (RBC) [Mass/Vol] 33.7 g/dL Normal 32-36 [facility] Comment on above: Performed By: #### L 3890.6006, L503.0106, L506.1001, L500.4050, L7000.7000, L500.4100, L3890.6102, L7000.8000, L3890.6202, L300.3900, L100.0500, L3100.0300, L3410.9992 #### [facility] [address] [place], [address] MCV (RBC) [Entitic vol] 79.1 fL Low 81-99 [facility] Comment on above: Performed By: #### L 3890.6006, L503.0106, L506.1001, L500.4050, L7000.7000, L500.4100, L3890.6102, L7000.8000, L3890.6202, L300.3900, L100.0500, L3100.0300, L3410.9992 #### [facility] [address] [place], [address] Platelet mean volume (Bld) [Entitic vol] 11.0 fL Normal 6.2-12.0 [facility] Comment on above: Performed By: #### L 3890.6006, L503.0106, L506.1001, L500.4050, L7000.7000, L500.4100, L3890.6102, L7000.8000, L3890.6202, L300.3900, L100.0500, L3100.0300, L3410.9992 #### [facility] [address] [place], [address] Platelets (Bld) [#/Vol] 231 10*3/uL Normal 150-450 [facility] Comment on above: Performed By: #### L 3890.6006, L503.0106, L506.1001, L500.4050, L7000.7000, L500.4100, L3890.6102, L7000.8000, L3890.6202, L300.3900, L100.0500, L3100.0300, L3410.9992 #### [facility] [address] [place], [address] (689) RBC (Bld) [#/Vol] 4.31 10*6/uL Normal 4.2-5.4 [facility] Comment on above: Performed By: #### L 3890.6006, L503.0106, L506.1001, L500.4050, L7000.7000, L500.4100, L3890.6102, L7000.8000, L3890.6202, L300.3900, L100.0500, L3100.0300, L3410.9992 #### [facility] [address] [place], [address] RDW SD 38.9 fl Normal 35.1-43.9 [facility] Comment on above: Performed By: #### L 3890.6006, L503.0106, L506.1001, L500.4050, L7000.7000, L500.4100, L3890.6102, L7000.8000, L3890.6202, L300.3900, L100.0500, L3100.0300, L3410.9992 #### [facility] [address] [place], [address] WBC (Bld) [#/Vol] 5.8 10*3/uL Normal 4.4-11.0 [facility] Comment on above: Performed By: #### L 3890.6006, L503.0106, L506.1001, L500.4050, L7000.7000, L500.4100, L3890.6102, L7000.8000, L3890.6202, L300.3900, L100.0500, L3100.0300, L3410.9992 #### [facility] [address] [facility] [place], [address] Comprehensive Metabolic Prof ilon 02-15-2025 Albumin [Mass/Vol] 4.1 g/dL Normal 3.5-5.0 [facility] Comment on above: Performed By: #### L 3890.6006, L503.0106, L506.1001, L500.4050, L7000.7000, L500.4100, L3890.6102, L7000.8000, L3890.6202, L300.3900, L100.0500, L3100.0300, L3410.9992 #### [facility] [address] [facility] [place], [place], [id number] ALK PHOS 72 U/L Normal 35-104 [facility] Comment on above: Performed By: #### L 3890.6006, L503.0106, L506.1001, L500.4050, L7000.7000, L500.4100, L3890.6102, L7000.8000, L3890.6202, L300.3900, L100.0500, L3100.0300, L3410.9992 #### [facility] [address] [place], [address] ALT [Catalytic activity/Vol] 35 U/L Normal <=34 [facility] Comment on above: Performed By: #### L 3890.6006, L503.0106, L506.1001, L500.4050, L7000.7000, L500.4100, L3890.6102, L7000.8000, L3890.6202, L300.3900, L100.0500, L3100.0300, L3410.9992 #### [facility] [address] [place], [address] AST [Catalytic activity/Vol] 22 U/L Normal <=31 [facility] Comment on above: Performed By: #### L 3890.6006, L503.0106, L506.1001, L500.4050, L7000.7000, L500.4100, L3890.6102, L7000.8000, L3890.6202, L300.3900, L100.0500, L3100.0300, L3410.9992 #### [facility] [address] [place], [address] Bilirubin [Mass/Vol] 0.54 mg/dL Normal 0.00-1.30 [facility] Comment on above: Performed By: #### L 3890.6006, L503.0106, L506.1001, L500.4050, L7000.7000, L500.4100, L3890.6102, L7000.8000, L3890.6202, L300.3900, L100.0500, L3100.0300, L3410.9992 #### [facility] [address] [place], [place], [phone] (600) BUN/CRE 19.9 RATIO Normal 10-20 [facility] Comment on above: Performed By: #### L 3890.6006, L503.0106, L506.1001, L500.4050, L7000.7000, L500.4100, L3890.6102, L7000.8000, L3890.6202, L300.3900, L100.0500, L3100.0300, L3410.9992 #### [facility] [address] [place], [place], [id number] (559) Calcium [Mass/Vol] 9.9 mg/dL Normal 7.6-11.0 [facility] Comment on above: Performed By: #### L 3890.6006, L503.0106, L506.1001, L500.4050, L7000.7000, L500.4100, L3890.6102, L7000.8000, L3890.6202, L300.3900, L100.0500, L3100.0300, L3410.9992 #### [facility] [address] [place], [place], [phone] (554) Chloride [Moles/Vol] 104 mmol/L Normal 98-108 [facility] Comment on above: Performed By: #### L 3890.6006, L503.0106, L506.1001, L500.4050, L7000.7000, L500.4100, L3890.6102, L7000.8000, L3890.6202, L300.3900, L100.0500, L3100.0300, L3410.9992 #### [facility] [address] [place], [address] CO2 [Moles/Vol] 21.4 mmol/L Normal 21.0-32.0 [facility] Comment on above: Performed By: #### L 3890.6006, L503.0106, L506.1001, L500.4050, L7000.7000, L500.4100, L3890.6102, L7000.8000, L3890.6202, L300.3900, L100.0500, L3100.0300, L3410.9992 #### [facility] [address] [facility] [place], [address] Creatinine [Mass/Vol] 0.63 mg/dL Low 0.70-1.20 [facility] Comment on above: Performed By: #### L 3890.6006, L503.0106, L506.1001, L500.4050, L7000.7000, L500.4100, L3890.6102, L7000.8000, L3890.6202, L300.3900, L100.0500, L3100.0300, L3410.9992 #### [facility] [address] [place], [address] GAP 11 Normal 5-15 [facility] Comment on above: Performed By: #### L 3890.6006, L503.0106, L506.1001, L500.4050, L7000.7000, L500.4100, L3890.6102, L7000.8000, L3890.6202, L300.3900, L100.0500, L3100.0300, L3410.9992 #### [facility] [address] [place], [address] GFR/1.73 sq M.predicted among non-blacks MDRD (S/P/Bld) [Vol rate/Area] 121 mL/min/{1.73_m2} Normal >60 [facility] Comment on above: Result Comment: mL/m in/1.73m2 CKD-EPI Creatinine Equation (2020) Performed By: #### L 3890.6006, L503.0106, L506.1001, L500.4050, L7000.7000, L500.4100, L3890.6102, L7000.8000, L3890.6202, L300.3900, L100.0500, L3100.0300, L3410.9992 #### [facility] [address] [place], [place], [id number] (495) Glucose [Mass/Vol] 87 mg/dL Normal 70-99 [facility] Comment on above: Performed By: #### L 3890.6006, L503.0106, L506.1001, L500.4050, L7000.7000, L500.4100, L3890.6102, L7000.8000, L3890.6202, L300.3900, L100.0500, L3100.0300, L3410.9992 #### [facility] [address] [facility] [place], [place], [phone] (143) Potassium [Moles/Vol] 4.0 mmol/L Normal 3.3-5.1 [facility] Comment on above: Performed By: #### L 3890.6006, L503.0106, L506.1001, L500.4050, L7000.7000, L500.4100, L3890.6102, L7000.8000, L3890.6202, L300.3900, L100.0500, L3100.0300, L3410.9992 #### [facility] [address] [place], [place], [phone] Sodium [Moles/Vol] 136 mmol/L Normal 133-145 [facility] Comment on above: Performed By: #### L 3890.6006, L503.0106, L506.1001, L500.4050, L7000.7000, L500.4100, L3890.6102, L7000.8000, L3890.6202, L300.3900, L100.0500, L3100.0300, L3410.9992 #### [facility] [address] [facility] [place], [place], [address] T PROT 7.9 g/dL Normal 5.9-8.4 [facility] Comment on above: Performed By: #### L 3890.6006, L503.0106, L506.1001, L500.4050, L7000.7000, L500.4100, L3890.6102, L7000.8000, L3890.6202, L300.3900, L100.0500, L3100.0300, L3410.9992 #### [facility] [address] [place], [place], [id number] Urea nitrogen [Mass/Vol] 13 mg/dL Normal 4-19 [facility] Comment on above: Performed By: #### L 3890.6006, L503.0106, L506.1001, L500.4050, L7000.7000, L500.4100, L3890.6102, L7000.8000, L3890.6202, L300.3900, L100.0500, L3100.0300, L3410.9992 #### [facility] [address] [place], [place], [id number] HIVon 02-15-2025 HIV Non-Reactive Normal Nonreactive [facility] Comment on above: Result Comment: Non- Reactive Reactive Repeatedly reactive samples must be confirmed according to CDC recommended confirmatory algorithms. The subresults for either HIVAG or AHIV can be used as an aid in the selection of the confirmation algorithm for reactive samples. Send out specimens with Reactive results to [facility] for confirmation. Order the HIV antibody detection and differentiation: lc#[id number] Performed By: #### L 3890.6006, L503.0106, L506.1001, L500.4050, L7000.7000, L500.4100, L3890.6102, L7000.8000, L3890.6202, L300.3900, L100.0500, L3100.0300, L3410.9992 #### [facility] [address], [place], [address] Hepatitis B Surface Antibody on 02-15-2025 HEP B Surf Ab REAC Normal [facility] Comment on above: Result Comment: <8.5 mIU/mL: Non-Reactive 8.5<= x <11.5 mIU/mL: Indeterminate >=11.5 mIU/mL: Reactive Non Reactive: Inconsistent with immunity less than <10 mIU/mL Reactive: Consistent with immunity greater than or equal to 10 mIU/mL Performed By: #### L 3890.6006, L503.0106, L506.1001, L500.4050, L7000.7000, L500.4100, L3890.6102, L7000.8000, L3890.6202, L300.3900, L100.0500, L3100.0300, L3410.9992 #### [facility] [address] [place], [place], [id number] L3890.6102on 02-15-2025 HEP B Surf Ag Non-Reactive Normal Nonreactive [facility] Comment on above: Result Comment: Reac tive: Presumptive evidence of HBV. Repeatedly reactive samples must be confirmed using a neutralization test ([employer] HBsAg Confirmatory Test) Non-Reactive: HBsAg not detected; does not exclude the possibility of exposure to HBV Performed By: #### L 3890.6006, L503.0106, L506.1001, L500.4050, L7000.7000, L500.4100, L3890.6102, L7000.8000, L3890.6202, L300.3900, L100.0500, L3100.0300, L3410.9992 #### [facility] [address], [place], [id number] Lipid Profileon 02-15-2025 CHOL:HDL 1.52 Normal [facility] Comment on above: Performed By: #### L 3890.6006, L503.0106, L506.1001, L500.4050, L7000.7000, L500.4100, L3890.6102, L7000.8000, L3890.6202, L300.3900, L100.0500, L3100.0300, L3410.9992 #### [facility] [address] [place], [place], [id number] (236) Cholesterol [Mass/Vol] 92 mg/dL Normal <=200 [facility] Comment on above: Result Comment: Chol esterol level, Desirable <200 mg/dL Borderline high cholesterol 200-239 mg/dL High cholesterol >=240 mg/dL Recommendations of the NCEP Adult Treatment Panel for the following risk-cutoff thresholds for the [place] population. Performed By: #### L 3890.6006, L503.0106, L506.1001, L500.4050, L7000.7000, L500.4100, L3890.6102, L7000.8000, L3890.6202, L300.3900, L100.0500, L3100.0300, L3410.9992 #### [facility] [address] [place], [address] (619) Cholesterol in HDL [Mass/Vol] 60 mg/dL Normal [facility] Comment on above: Result Comment: Sarah onal [...] L7000.8000, L3890.6202, L300.3900, L100.0500, L3100.0300, L3410.9992 #### [facility] [address] [place], [address] (354) Cholesterol in LDL [Mass/Vol] 24 mg/dL Normal [facility] Comment on above: Result Comment: Bord focqks=832-294 mg/dL Higher Ckem=469 mg/dL or greater Performed By: #### L 3890.6006, L503.0106, L506.1001, L500.4050, L7000.7000, L500.4100, L3890.6102, L7000.8000, L3890.6202, L300.3900, L100.0500, L3100.0300, L3410.9992 #### [facility] [address] [place], [address] Cholesterol in VLDL [Mass/Vol] 7 mg/dL Normal 5-40 [facility] Comment on above: Performed By: #### L 3890.6006, L503.0106, L506.1001, L500.4050, L7000.7000, L500.4100, L3890.6102, L7000.8000, L3890.6202, L300.3900, L100.0500, L3100.0300, L3410.9992 #### [facility] [address] [place], [address] Triglyceride [Mass/Vol] 36 mg/dL Normal [facility] Comment on above: Result Comment: The drugs N-Acetylcysteine and Metamizole may falsely depress this assay. Normal range: <150 mg/dL Borderline High: 150-199 mg/dL High: 200-499 mg/dL Very High: >500 mg/dL Performed By: #### L 3890.6006, L503.0106, L506.1001, L500.4050, L7000.7000, L500.4100, L3890.6102, L7000.8000, L3890.6202, L300.3900, L100.0500, L3100.0300, L3410.9992 #### [facility] [address] [place], [address] Prothrombin Time w/INRon INR Coag (PPP) [Relative time] 1.0 {INR} Normal [facility] Comment on above: Performed By: #### L 3890.6006, L503.0106, L506.1001, L500.4050, L7000.7000, L500.4100, L3890.6102, L7000.8000, L3890.6202, L300.3900, L100.0500, L3100.0300, L3410.9992 #### [facility] [address] [place], [place], [id number] PT Coag (PPP) [Time] 13.4 s Normal 11.7-14.9 [facility] Comment on above: Performed By: #### L 3890.6006, L503.0106, L506.1001, L500.4050, L7000.7000, L500.4100, L3890.6102, L7000.8000, L3890.6202, L300.3900, L100.0500, L3100.0300, L3410.9992 #### [facility] [address] [place], [address] Vitamin B12on 02-15-2025 Cobalamin (Vitamin B12) [Mass/Vol] 463 pg/mL Normal 180-914 [facility] Comment on above: Performed By: #### L 3890.6006, L503.0106, L506.1001, L500.4050, L7000.7000, L500.4100, L3890.6102, L7000.8000, L3890.6202, L300.3900, L100.0500, L3100.0300, L3410.9992 #### [facility] [address] [place], [place], [id number] Vitamin D,25 Hydroxyon 02-15 Vitamin D 25-OH 24.4 ng/mL Low 30-100 [facility] Comment on above: Result Comment: Anna min D Status Deficiency: <20 ng/mL (50nmol/L) Insufficiency: 20-30 ng/mL (50-75 nmol/L) Sufficiency: 30-100 ng/mL (75-250 nmol/L) Toxicity: >100 ng/mL (>250 nmol/L) Performed By: #### L 3890.6006, L503.0106, L506.1001, L500.4050, L7000.7000, L500.4100, L3890.6102, L7000.8000, L3890.6202, L300.3900, L100.0500, L3100.0300, L3410.9992 #### [facility] [address] [place], [place], [address] Hepatitis A AB, Totalon 12-29 HEPATITIS A,TOT Negative Normal Negative [facility] Comment on above: Order Comment: Test( s) [id number] C Genotypewas developed and its performance characteristicsdetermined by [facility]. It has not been cleared or approvedby [...] performed if active HAV infection is suspected. [facility] offers profiles that will automatically reflex positive HAV total antibody results to IgM (e.g., panel #[id number] HAV Antibody w/ Rfx). Performed at: [address] [id number] Embedder: Mell Domingo MD, Phone: [phone] Performed at: [address] [id number] Embedder: Micha Neri PhD, Phone: [phone] Performed By: #### L 3890.6006, L503.0106, L506.1001, L500.4050, L7000.7000, L500.4100, L3890.6102, L7000.8000, L3890.6202, L300.3900, L100.0500, L3100.0300, L3410.9992 #### [facility] [address] [place], [address] Hepatitis C Genotypeon 01-25 HEP C GENOTYPE 3 Normal . [facility] Comment on above: Order Comment: Test( s) 067693-Pioglflrt C Genotypewas developed and its performance characteristicsdetermined by [facility]. It has not been cleared or approvedby the Food and Drug Administration. Performed By: #### L 3890.6006, L503.0106, L506.1001, L500.4050, L7000.7000, L500.4100, L3890.6102, L7000.8000, L3890.6202, L300.3900, L100.0500, L3100.0300, L3410.9992 #### [facility] [address] 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 [facility] Comment on above: Order Comment: Test( s) 732425-Jamkxuoda C Genotypewas developed and its performance characteristicsdetermined by [facility]. It has not been cleared or approvedby the Food and Drug Administration. Result Comment: Resu lt Units: log10 IU/mL Performed By: #### L 3890.6006, L503.0106, L506.1001, L500.4050, L7000.7000, L500.4100, L3890.6102, L7000.8000, L3890.6202, L300.3900, L100.0500, L3100.0300, L3410.9992 #### [facility] [address] [place], [address] HCV QT RNA PCR 325102 IU/mL Normal . [facility] Comment on above: Order Comment: Test( s) 384441-Sxgpqomav C Genotypewas developed and its performance characteristicsdetermined by [employer]. It has not been cleared or approvedby the Food and Drug Administration. Performed By: #### L 3890.6006, L503.0106, L506.1001, L500.4050, L7000.7000, L500.4100, L3890.6102, L7000.8000, L3890.6202, L300.3900, L100.0500, L3100.0300, L3410.9992 #### [facility] [address] [place], [address] TEST INFO: Comment Normal . [facility] Comment on above: Order Comment: Test( s) 493012-Jgalvpyda C Genotypewas developed and its performance characteristicsdetermined by [facility]. It has not been cleared or approvedby the Food and Drug Administration. Result Comment: The quantitative range of this assay is 15 IU/mL to 100 million IU/mL. Performed By: #### L 3890.6006, L503.0106, L506.1001, L500.4050, L7000.7000, L500.4100, L3890.6102, L7000.8000, L3890.6202, L300.3900, L100.0500, L3100.0300, L3410.9992 #### [facility] [address] [facility] [place], [address] Comprehensive Metabolic Prof ilon 01-18-2025 Albumin [Mass/Vol] 4.2 g/dL Normal 3.5-5.0 [facility] Comment on above: Performed By: #### L 3890.6006, L503.0106, L506.1001, L500.4050, L7000.7000, L500.4100, L3890.6102, L7000.8000, L3890.6202, L300.3900, L100.0500, L3100.0300, L3410.9992 #### [facility] [address] [place], [address] Albumin/Globulin [Mass ratio] 1.2 {ratio} Normal 0.9-2.4 [facility] Comment on above: Performed By: #### L 3890.6006, L503.0106, L506.1001, L500.4050, L7000.7000, L500.4100, L3890.6102, L7000.8000, L3890.6202, L300.3900, L100.0500, L3100.0300, L3410.9992 #### [facility] [address] [place], [place], [id number] ALK PHOS 75 U/L Normal 35-104 [facility] Comment on above: Performed By: #### L 3890.6006, L503.0106, L506.1001, L500.4050, L7000.7000, L500.4100, L3890.6102, L7000.8000, L3890.6202, L300.3900, L100.0500, L3100.0300, L3410.9992 #### [facility] [address] [place], [place], [id number] ALT [Catalytic activity/Vol] 45 U/L High <=34 [facility] Comment on above: Performed By: #### L 3890.6006, L503.0106, L506.1001, L500.4050, L7000.7000, L500.4100, L3890.6102, L7000.8000, L3890.6202, L300.3900, L100.0500, L3100.0300, L3410.9992 #### [facility] [address] [place], [address] AST [Catalytic activity/Vol] 33 U/L High <=31 [facility] Comment on above: Performed By: #### L 3890.6006, L503.0106, L506.1001, L500.4050, L7000.7000, L500.4100, L3890.6102, L7000.8000, L3890.6202, L300.3900, L100.0500, L3100.0300, L3410.9992 #### [facility] [address] [place], [place], [id number] (863) Bilirubin [Mass/Vol] 0.38 mg/dL Normal 0.00-1.30 [facility] Comment on above: Performed By: #### L 3890.6006, L503.0106, L506.1001, L500.4050, L7000.7000, L500.4100, L3890.6102, L7000.8000, L3890.6202, L300.3900, L100.0500, L3100.0300, L3410.9992 #### [facility] [address] [place], [place], [id number] (775) BUN/CRE 15.5 RATIO Normal 10-20 [facility] Comment on above: Performed By: #### L 3890.6006, L503.0106, L506.1001, L500.4050, L7000.7000, L500.4100, L3890.6102, L7000.8000, L3890.6202, L300.3900, L100.0500, L3100.0300, L3410.9992 #### [facility] [address] [place], [place], [id number] (073) Calcium [Mass/Vol] 9.2 mg/dL Normal 7.6-11.0 [facility] Comment on above: Performed By: #### L 3890.6006, L503.0106, L506.1001, L500.4050, L7000.7000, L500.4100, L3890.6102, L7000.8000, L3890.6202, L300.3900, L100.0500, L3100.0300, L3410.9992 #### [facility] [address] [place], [place], [id number] (931) Chloride [Moles/Vol] 104 mmol/L Normal 98-108 [facility] Comment on above: Performed By: #### L 3890.6006, L503.0106, L506.1001, L500.4050, L7000.7000, L500.4100, L3890.6102, L7000.8000, L3890.6202, L300.3900, L100.0500, L3100.0300, L3410.9992 #### [facility] [address] [place], [place], [id number] CO2 [Moles/Vol] 21.9 mmol/L Normal 21.0-32.0 [facility] Comment on above: Performed By: #### L 3890.6006, L503.0106, L506.1001, L500.4050, L7000.7000, L500.4100, L3890.6102, L7000.8000, L3890.6202, L300.3900, L100.0500, L3100.0300, L3410.9992 #### [facility] [address] [place], [address] Creatinine [Mass/Vol] 0.63 mg/dL Low 0.70-1.20 [facility] Comment on above: Performed By: #### L 3890.6006, L503.0106, L506.1001, L500.4050, L7000.7000, L500.4100, L3890.6102, L7000.8000, L3890.6202, L300.3900, L100.0500, L3100.0300, L3410.9992 #### [facility] [address] [place], [place], [id number] GAP 12 Normal 5-15 [facility] Comment on above: Performed By: #### L 3890.6006, L503.0106, L506.1001, L500.4050, L7000.7000, L500.4100, L3890.6102, L7000.8000, L3890.6202, L300.3900, L100.0500, L3100.0300, L3410.9992 #### [facility] [address] [place], [address] GFR/1.73 sq M.predicted among non-blacks MDRD (S/P/Bld) [Vol rate/Area] 121 mL/min/{1.73_m2} Normal >60 [facility] Comment on above: Result Comment: mL/m in/1.73m2 CKD-EPI Creatinine Equation (2020) Performed By: #### L 3890.6006, L503.0106, L506.1001, L500.4050, L7000.7000, L500.4100, L3890.6102, L7000.8000, L3890.6202, L300.3900, L100.0500, L3100.0300, L3410.9992 #### [facility] [address] [place], [address] Globulin (S) [Mass/Vol] 3.6 g/dL Normal 2.2-4.2 [facility] Comment on above: Performed By: #### L 3890.6006, L503.0106, L506.1001, L500.4050, L7000.7000, L500.4100, L3890.6102, L7000.8000, L3890.6202, L300.3900, L100.0500, L3100.0300, L3410.9992 #### [facility] [address] [facility]. [place], [place], [phone] ([phone] Glucose [Mass/Vol] 96 mg/dL Normal 70-99 [facility] Comment on above: Performed By: #### L 3890.6006, L503.0106, L506.1001, L500.4050, L7000.7000, L500.4100, L3890.6102, L7000.8000, L3890.6202, L300.3900, L100.0500, L3100.0300, L3410.9992 #### [facility] [address] [place], [address] Potassium [Moles/Vol] 3.9 mmol/L Normal 3.3-5.1 [facility] Comment on above: Performed By: #### L 3890.6006, L503.0106, L506.1001, L500.4050, L7000.7000, L500.4100, L3890.6102, L7000.8000, L3890.6202, L300.3900, L100.0500, L3100.0300, L3410.9992 #### [facility] [address] [place], [address] Sodium [Moles/Vol] 137 mmol/L Normal 133-145 [facility] Comment on above: Performed By: #### L 3890.6006, L503.0106, L506.1001, L500.4050, L7000.7000, L500.4100, L3890.6102, L7000.8000, L3890.6202, L300.3900, L100.0500, L3100.0300, L3410.9992 #### [facility] [address] [place], [place], [id number] T PROT 7.8 g/dL Normal 5.9-8.4 [facility] Comment on above: Performed By: #### L 3890.6006, L503.0106, L506.1001, L500.4050, L7000.7000, L500.4100, L3890.6102, L7000.8000, L3890.6202, L300.3900, L100.0500, L3100.0300, L3410.9992 #### [facility] [address] [place], [place], [phone] (421) Urea nitrogen [Mass/Vol] 10 mg/dL Normal 4-19 [facility] Comment on above: Performed By: #### L 3890.6006, L503.0106, L506.1001, L500.4050, L7000.7000, L500.4100, L3890.6102, L7000.8000, L3890.6202, L300.3900, L100.0500, L3100.0300, L3410.9992 #### [facility] [address] [facility] [place], [address] HIVon 01-18-2025 HIV Non-Reactive Normal Nonreactive [facility] Comment on above: Result Comment: Non- Reactive Reactive Repeatedly reactive samples must be confirmed according to CDC recommended confirmatory algorithms. The subresults for either HIVAG or AHIV can be used as an aid in the selection of the confirmation algorithm for reactive samples. [facility]. Order the HIV antibody detection and differentiation: #[id number] Performed By: #### L 3890.6006, L503.0106, L506.1001, L500.4050, L7000.7000, L500.4100, L3890.6102, L7000.8000, L3890.6202, L300.3900, L100.0500, L3100.0300, L3410.9992 #### [facility] [address] [facility] [place], [address] Hemoglobin A1con 01-18-2025 HbA1c (Bld) [Mass fraction] 5.6 % Normal <=5.6 [facility] Comment on above: Result Comment: Norm al < 5.7 % Prediabetic 5.7 - 6.4 % Diabetic >or= 6.5 % Please note range changes. Performed By: #### L 3890.6006, L503.0106, L506.1001, L500.4050, L7000.7000, L500.4100, L3890.6102, L7000.8000, L3890.6202, L300.3900, L100.0500, L3100.0300, L3410.9992 #### [facility] [address] [facility] [place], [address] Hepatitis B Surface Antibody on 01-18-2025 HEP B Surf Ab REAC Normal [facility] Comment on above: Result Comment: <8.5 mIU/mL: Non-Reactive 8.5<= x <11.5 mIU/mL: Indeterminate >=11.5 mIU/mL: Reactive Non Reactive: Inconsistent with immunity less than <10 mIU/mL Reactive: Consistent with immunity greater than or equal to 10 mIU/mL Performed By: #### L 3890.6006, L503.0106, L506.1001, L500.4050, L7000.7000, L500.4100, L3890.6102, L7000.8000, L3890.6202, L300.3900, L100.0500, L3100.0300, L3410.9992 #### [facility] [address] [facility] [place], [address] L3890.6102on 01-18-2025 HEP B Surf Ag Non-Reactive Normal Nonreactive [facility] Comment on above: Result Comment: Reac tive: Presumptive evidence of HBV. Repeatedly reactive samples must be confirmed using a neutralization test ([employer] HBsAg Confirmatory Test) Non-Reactive: HBsAg not detected; does not exclude the possibility of exposure to HBV Performed By: #### L 3890.6006, L503.0106, L506.1001, L500.4050, L7000.7000, L500.4100, L3890.6102, L7000.8000, L3890.6202, L300.3900, L100.0500, L3100.0300, L3410.9992 #### [facility] [address] [facility] [place], [address] Thyroid Stim Hormone (TSH)on 01-18-2025 TSH 4.160 uIU/mL Normal 0.300-4.200 [facility] Comment on above: Performed By: #### L 3890.6006, L503.0106, L506.1001, L500.4050, L7000.7000, L500.4100, L3890.6102, L7000.8000, L3890.6202, L300.3900, L100.0500, L3100.0300, L3410.9992 #### [facility] [address] [place], [address] ALCOHOL, MEDICALon ALCOHOL MEDICAL < Normal <10.0 [facility] Comment on above: Result Comment: Alco hol cutoff: <10.00 mg/dL = None Detected Performed By: #### 4 5033 #### [facility] [address] [place], [place] [address] Jason Rea M.D. [id number] AMMONIAon 05-11-2024 Ammonia (P) [Mass/Vol] ug/dL Low [facility] Ammonia (P) [Mass/Vol] ug/dL Low 9-30 [facility] Comment on above: Performed By: #### N H3 #### Testing performed at [facility] [address] [place] [address] BASIC METABOLIC PANELon 04-29 Anion gap [Moles/Vol] 24 mmol/L High 10-20 [facility] Comment on above: Order Comment: [facility] has implemented the eGFR calculation approach that does not have a coefficient for race that conforms to the NKF-ASN Task Force Recommendations. Performed By: #### 4 6124 #### [facility] [address] [place], [place] [address] Jason Rea M.D. [id number] Calcium [Mass/Vol] 10.5 mg/dL High 8.4-10.2 [facility] Comment on above: Order Comment: [facility] has implemented the eGFR calculation approach that does not have a coefficient for race that conforms to the NKF-ASN Task Force Recommendations. Performed By: #### 4 6124 #### [facility] [address] [place], [place] [address] Jason Rea M.D. [id number] Chloride [Moles/Vol] 98 mmol/L Normal 98-108 [facility] Comment on above: Order Comment: [facility] has implemented the eGFR calculation approach that does not have a coefficient for race that conforms to the NKF-ASN Task Force Recommendations. Performed By: #### 4 6124 #### [facility] [address] [place], [place] [address] Jason Rea M.D. [id number] Creatinine [Mass/Vol] 0.91 mg/dL Normal 0.40-1.10 [facility] Comment on above: Order Comment: [facility] has implemented the eGFR calculation approach that does not have a coefficient for race that conforms to the NKF-ASN Task Force Recommendations. Performed By: #### 4 6124 #### [facility] [address] [place] [address] Jason Rea M.D. [id number] EGFR 86 mL/min/1.73 m2 Normal >=60 [facility] Comment on above: Order Comment: [facility] has implemented the eGFR calculation approach that does not have a coefficient for race that conforms to the NKF-ASN Task Force Recommendations. Result Comment: Janell mated GFR was calculated using the 2020 CKD-EPI creatinine equation. Performed By: #### 4 6124 #### [facility] [address] [place] [address] Jason Rea M.D. [id number] Glucose [Mass/Vol] 97 mg/dL Normal 65-99 [facility] Comment on above: Order Comment: [facility] has implemented the eGFR calculation approach that does not have a coefficient for race that conforms to the NKF-ASN Task Force Recommendations. Performed By: #### 4 6124 #### [facility] [address] [place] [id number] Jason Rea M.D. [id number] HCO3 (Bld) [Moles/Vol] 19 mmol/L Low 21-32 [facility] Comment on above: Order Comment: [facility] has implemented the eGFR calculation approach that does not have a coefficient for race that conforms to the NKF-ASN Task Force Recommendations. Performed By: #### 4 6124 #### [facility] [address] [place] [address] Jason Rea M.D. [id number] Potassium [Moles/Vol] 4.3 mmol/L Normal 3.5-5.1 [facility] Comment on above: Order Comment: [facility] has implemented the eGFR calculation approach that does not have a coefficient for race that conforms to the NKF-ASN Task Force Recommendations. Result Comment: Slig htly Hemolyzed Performed By: #### 4 6124 #### [facility] [address] [place] [address] Jason Rea M.D. [id number] Sodium [Moles/Vol] 137 mmol/L Normal 135-145 [facility] Comment on above: Order Comment: [facility] has implemented the eGFR calculation approach that does not have a coefficient for race that conforms to the NKF-ASN Task Force Recommendations. Performed By: #### 4 6124 #### [facility] [address] [place] [address] Jason Rea M.D. [id number] Urea nitrogen [Mass/Vol] 11 mg/dL Normal 8-25 [facility] Comment on above: Order Comment: [facility] has implemented the eGFR calculation approach that does not have a coefficient for race that conforms to the NKF-ASN Task Force Recommendations. Performed By: #### 4 6124 #### [facility] [address] [place] [address] Jason Rea M.D. [id number] Urea nitrogen/Creatini ne [Mass ratio] 12.1 mg/mg Normal 10.0-20.0 [facility] Comment on above: Order Comment: [facility] has implemented the eGFR calculation approach that does not have a coefficient for race that conforms to the NKF-ASN Task Force Recommendations. Performed By: #### 4 6124 #### [facility] [address] [place] [address] Jason Rea M.D. [id number] CBCon 05-11-2024 ABSOLUTE BAS 0.1 10*3/uL Normal 0.0-0.2 [facility] Comment on above: Performed By: #### A CBC, CMPF, LIPA2 #### Testing performed at [address] [address] ABSOLUTE EOS 0.0 10*3/uL Normal 0.0-0.7 [facility] Comment on above: Performed By: #### A CBC, CMPF, LIPA2 #### Testing performed at [address] [address] ABSOLUTE NEUTROPHIL COUNT 8.9 10*3/uL High 1.4-6.5 [facility] Comment on above: Performed By: #### A CBC, CMPF, LIPA2 #### Testing performed at [address] [address] Basophils/100 WBC (Bld) 0.5 % Normal 0.0-2.0 [facility] Comment on above: Performed By: #### A CBC, CMPF, LIPA2 #### Testing performed at [address] [address] DTYPE AUTO DIFF Normal [facility] Comment on above: Performed By: #### A CBC, CMPF, LIPA2 #### Testing performed at [address] [address] Eosinophils/100 WBC (Bld) 0.0 % Normal 0.0-11.0 [facility] Comment on above: Performed By: #### A CBC, CMPF, LIPA2 #### Testing performed at [address] [address] Lymphocytes (Bld) [#/Vol] 1.7 10*3/uL Normal 1.2-3.4 [facility] Comment on above: Performed By: #### A CBC, CMPF, LIPA2 #### Testing performed at [address] [address] Lymphocytes/100 WBC (Bld) 15.3 % Low 20.0-55.0 [facility] Comment on above: Performed By: #### A CBC, CMPF, LIPA2 #### Testing performed at [address] [address] Monocytes (Bld) [#/Vol] 0.5 10*3/uL Normal 0.0-0.7 [facility] Comment on above: Performed By: #### A CBC, CMPF, LIPA2 #### Testing performed at [address] [address] Monocytes/100 WBC (Bld) 4.8 % Normal 0.0-10.0 [facility] Comment on above: Performed By: #### A CBC, CMPF, LIPA2 #### Testing performed at [address] [address] Neutrophils/100 WBC (Bld) 79.4 % High 37.0-75.0 [facility] Comment on above: Performed By: #### A CBC, CMPF, LIPA2 #### Testing performed at [address] [address] Erythrocyte distribution width (RBC) [Ratio] 17.1 % High 11.5-14.5 [facility] Comment on above: Performed By: #### A CBC, CMPF, LIPA2 #### Testing performed at [address] [address] Hematocrit (Bld) [Volume fraction] 35.5 % Low 36.0-48.0 [facility] Comment on above: Performed By: #### A CBC, CMPF, LIPA2 #### Testing performed at [address] [address] Hemoglobin (Bld) [Mass/Vol] 11.6 g/dL Low 12.0-16.0 [facility] Comment on above: Performed By: #### A CBC, CMPF, LIPA2 #### Testing performed at [address] [address] MCH (RBC) [Entitic mass] 24.5 pg Low 26.0-35.0 [facility] Comment on above: Performed By: #### A CBC, CMPF, LIPA2 #### Testing performed at [address] [address] MCHC (RBC) [Mass/Vol] 32.6 g/dL Normal 27.0-37.0 [facility] Comment on above: Performed By: #### A CBC, CMPF, LIPA2 #### Testing performed at [address] [address] MCV (RBC) [Entitic vol] 75.2 fL Low 80.0-100.0 [facility] Comment on above: Performed By: #### A CBC, CMPF, LIPA2 #### Testing performed at [address] [address] Platelet mean volume (Bld) [Entitic vol] 8.4 fL Normal 7.4-11.0 [facility] Comment on above: Performed By: #### A CBC, CMPF, LIPA2 #### Testing performed at [address] [address] Platelets (Bld) [#/Vol] 311 10*3/uL Normal 130-400 [facility] Comment on above: Performed By: #### A CBC, CMPF, LIPA2 #### Testing performed at [address] [address] RBC (Bld) [#/Vol] 4.71 10*6/uL Normal 4.0-5.4 [facility] Comment on above: Performed By: #### A CBC, CMPF, LIPA2 #### Testing performed at [address] [address] WBC (Bld) [#/Vol] 11.2 10*3/uL High 3.6-11.0 [facility] Comment on above: Performed By: #### A CBC, CMPF, LIPA2 #### Testing performed at [address] [address] CBC WITH AUTO DIFFERENTIALon 05-11-2024 AUTO NRBC 0.0 % Normal [facility] Comment on above: Performed By: #### L [id number] #### [facility] [address] [place] [address] Jason Rea M.D. [id number] AUTO NRBC ABS COUNT 0.00 K/mcL Normal 0.00-0.00 [facility] Comment on above: Performed By: #### L [id number] #### [facility] [address] [place] [address] Jaosn Rea M.D. [id number] BASOPHILS ABSOLUTE COUNT 0.04 K/mcL Normal 0.00-0.30 [facility] Comment on above: Performed By: #### L [id number] #### [facility] [address] [place] [address] Jason Rea M.D. [id number] Basophils/100 WBC (Bld) 0.5 % Normal [facility] Comment on above: Performed By: #### L [id number] #### [facility] [address] [place] [address] Jason Rea M.D. [id number] Eosinophils (Bld) [#/Vol] 0.00 10*3/uL Normal 0.00-0.50 [facility] Comment on above: Performed By: #### L [id number] #### [facility] [address] [place] [address] Jason Rea M.D. [id number] Eosinophils/100 WBC (Bld) 0.0 % Normal [facility] Comment on above: Performed By: #### L [id number] #### [facility] [address] [place] [address] Jason Rea M.D. [id number] Erythrocyte distribution width (RBC) [Ratio] 15.8 % High 11.6-14.8 [facility] Comment on above: Performed By: #### L [id number] #### LAB [address] [place] [address] Jason Rea M.D. [id number] Hematocrit (Bld) [Volume fraction] 36.8 % Normal 36.0-46.0 [facility] Comment on above: Performed By: #### L [id number] #### LAB [address] [place] [address] Jason Rea M.D. [id number] Hemoglobin (Bld) [Mass/Vol] 12.0 g/dL Normal 12.0-16.0 [facility] Comment on above: Performed By: #### L [id number] #### LAB [address] [place] [address] Jason Rea M.D. [id number] IG ABSOLUTE 0.03 K/mcL Normal 0.00-0.30 [facility] Comment on above: Performed By: #### L [id number] #### [facility] [address] [place] [address] Jason Rea M.D. [id number] IG PERCENT 0.40 % Normal [facility] Comment on above: Result Comment: The IG parameter is the percentage of metamyelocytes, myelocytes and promyelocytes. An immature granulocyte count (IG) of 1% or more suggests the possibility of infection, an IG count of 3% is very likely related to an infection. Performed By: #### L [id number] #### [facility] [address] [place] [address] Jason Rea M.D. [id number] Lymphocytes (Bld) [#/Vol] 1.06 10*3/uL Normal 0.90-4.00 [facility] Comment on above: Performed By: #### L [id number] #### [facility] [address] [place] [address] Jason Rea M.D. [id number] Lymphocytes/100 WBC (Bld) 12.4 % Normal [facility] Comment on above: Performed By: #### L [id number] #### [facility] [address] [place] [address] Jason Rea M.D. [id number] MCH (RBC) [Entitic mass] 24.5 pg Low 26.0-34.0 [facility] Comment on above: Performed By: #### L [id number] #### [facility] [address] [place] [address] Jason Rea M.D. [id number] MCV (RBC) [Entitic vol] 75.3 fL Low 80.0-100.0 [facility] Comment on above: Performed By: #### L [id number] #### [address] [place] [address] Jason Rea M.D. [id number] MEAN CORPUSCULAR HEMOGLOBIN CONC 32.6 g/dL Normal 31.0-37.0 [facility] Comment on above: Performed By: #### L [id number] #### [address] [place] [address] Jason Rea M.D. [id number] Monocytes (Bld) [#/Vol] 0.48 10*3/uL Normal 0.30-0.90 [facility] Comment on above: Performed By: #### L [id number] #### [address] [place] [address] Jason Rea M.D. [id number] Monocytes/100 WBC (Bld) 5.6 % Normal [facility] Comment on above: Performed By: #### L [id number] #### LAB [address] [address] Jason Rea M.D. [id number] NEUTROPHILS ABSOLUTE COUNT 6.96 K/mcL Normal 1.70-7.00 [facility] Comment on above: Performed By: #### L [id number] #### LAB [address] [address] Jason Rea M.D. [id number] Neutrophils/100 WBC (Bld) 81.1 % Normal [facility] Comment on above: Performed By: #### L [id number] #### LAB [address] [address] Jason Rea M.D. [id number] Platelet mean volume (Bld) [Entitic vol] 10.4 fL Normal 9.4-12.4 [facility] Comment on above: Performed By: #### L [id number] #### MH LAB [address] [address] Jason Rea M.D. [id number] Platelets (Bld) [#/Vol] 293 10*3/uL Normal 150-400 [facility] Comment on above: Performed By: #### L [id number] #### LAB [address] [address] Jason Rea M.D. [id number] RBC (Bld) [#/Vol] 4.89 10*6/uL Normal 4.00-5.20 [facility] Comment on above: Performed By: #### L [id number] #### LAB [address] [place], [place] [address] Jason Rea M.D. [id number] WBC (Bld) [#/Vol] 8.57 10*3/uL Normal 4.50-11.00 [facility] Comment on above: Performed By: #### L [id number] #### LAB [address] [place], [place] [address] Jason Rea M.D. [id number] CBC, EDIF, PLATELETon 2023 ABSOLUTE BASOPHIL COUNT 0.1 10*3/uL 0.0 - 0.2 10*3/uL [facility] Basophils/100 WBC (Bld) 0.5 % 0.0 - 2.0 % [facility] Differential cell count method Nom (Bld) AUTO DIFF % [facility] Eosinophils (Bld) [#/Vol] 0.0 10*3/uL 0.0 - 0.7 10*3/uL [facility] Eosinophils/100 WBC (Bld) 0.0 % 0.0 - 11.0 % [facility] Erythrocyte distribution width (RBC) [Ratio] 17.1 % High 11.5 - 14.5 % [facility] Hematocrit (Bld) [Volume fraction] 35.5 % Low 36.0 - 48.0 % [facility] Hemoglobin (Bld) [Mass/Vol] 11.6 g/dL Low [facility] Interpretation and review of laboratory results Abnormal [facility] Lymphocytes (Bld) [#/Vol] 1.7 10*3/uL 1.2 - 3.4 10*3/uL [facility] Lymphocytes/100 WBC (Bld) 15.3 % Low 20.0 - 55.0 % [facility] MCH (RBC) [Entitic mass] 24.5 pg Low 26.0 - 35.0 PG [facility] MCHC (RBC) [Mass/Vol] 32.6 g/dL [facility] MCV (RBC) [Entitic vol] 75.2 fL Low [facility] Monocytes (Bld) [#/Vol] 0.5 10*3/uL 0.0 - 0.7 10*3/uL [facility] Monocytes/100 WBC (Bld) 4.8 % 0.0 - 10.0 % [facility] Neutrophils (Bld) [#/Vol] 8.9 10*3/uL High 1.4 - 6.5 10*3/uL [facility] Neutrophils/100 WBC (Bld) 79.4 % High 37.0 - 75.0 % [facility] Platelet mean volume (Bld) [Entitic vol] 8.4 fL [facility] Platelets (Bld) [#/Vol] 311 10*3/uL 130 - 400 10*3/uL [facility] RBC (Bld) [#/Vol] 4.71 10*6/uL 4.0 - 5.4 10*6/uL [facility] WBC (Bld) [#/Vol] 11.2 10*3/uL High 3.6 - 11.0 10*3/uL [facility] CMP FASTINGon 05-11-2024 A:G RATIO 1.1 RATIO Normal [facility] Comment on above: Performed By: #### A CBC, CMPF, LIPA2 #### Testing performed at [address] [address] ALBUMIN 4.7 G/dl Normal 3.5-5.0 [facility] Comment on above: Performed By: #### A CBC, CMPF, LIPA2 #### Testing performed at [address] [address] ALP [Catalytic activity/Vol] 87 U/L Normal 38-126 [facility] Comment on above: Performed By: #### A CBC, CMPF, LIPA2 #### Testing performed at [address] [address] ALT [Catalytic activity/Vol] 58 U/L High <35 [facility] Comment on above: Performed By: #### A CBC, CMPF, LIPA2 #### Testing performed at [address] [address] AST [Catalytic activity/Vol] 51 U/L High 14-36 [facility] Comment on above: Performed By: #### A CBC, CMPF, LIPA2 #### Testing performed at [address] [address] Bilirubin [Mass/Vol] 2.2 mg/dL High 0.2-1.3 [facility] Comment on above: Performed By: #### A CBC, CMPF, LIPA2 #### Testing performed at [address] [address] Calcium [Mass/Vol] 9.9 mg/dL Normal 8.4-10.2 [facility] Comment on above: Performed By: #### A CBC, CMPF, LIPA2 #### [place] [address] Chloride [Moles/Vol] 106 mmol/L Normal 98-107 [facility] Comment on above: Result Comment: Dung yu note: Triglyceride levels of 600mg/dL or higher may positively bias chloride results by approximately 2.1 mmol Performed By: #### A CBC, CMPF, LIPA2 #### [place] [address] CO2 [Moles/Vol] 21 mmol/L Low 22-30 [facility] Comment on above: Performed By: #### A CBC, CMPF, LIPA2 #### Testing performed at [address] [address] Creatinine [Mass/Vol] 0.73 mg/dL Normal 0.70-1.20 [facility] Comment on above: Performed By: #### A CBC, CMPF, LIPA2 #### Testing performed at [address] [address] EST. GFR, 119 ml/min/1.73sq.m [facility] Comment on above: Performed By: #### A CBC, CMPF, LIPA2 #### Testing performed at [address] [address] EST. GFR,Non 98 ml/min/1.73sq.m [facility] Comment on above: Performed By: #### A CBC, CMPF, LIPA2 #### Testing performed at [address] [address] GFR Information Average GFR for 30-3 9 years old = 107. Normal [facility] Comment on above: Result Comment: [employer] makayla Kidney disease, GFR = <60. Kidney failure, GFR = <15. The GFR estimate is not adjusted for extreme body surface area or acute process, nor has it been validated for women or ethnic groups other than and . Performed By: #### A CBC, CMPF, LIPA2 #### Testing performed at [address] [address] Glucose [Mass/Vol] 103 mg/dL High 70-100 [facility] Comment on above: Result Comment: NORMAL <100 mg/dL PREDIABETES 101-126 mg/dL DIABETES 126 mg/dL or higher Performed By: #### A CBC, CMPF, LIPA2 #### Testing performed at [address] [address] Potassium [Moles/Vol] 3.3 mmol/L Low 3.5-5.1 [facility] Comment on above: Performed By: #### A CBC, CMPF, LIPA2 #### Testing performed at [address] [address] Protein [Mass/Vol] 9.1 g/dL High 6.3-8.2 [facility] Comment on above: Performed By: #### A CBC, CMPF, LIPA2 #### Testing performed at [address] [address] Sodium [Moles/Vol] 138 mmol/L Normal 137-145 [facility] Comment on above: Performed By: #### A CBC, CMPF, LIPA2 #### Testing performed at [address] [address] Urea nitrogen [Mass/Vol] 13 mg/dL Normal 7-20 [facility] Comment on above: Performed By: #### A CBC, CMPF, LIPA2 #### Testing performed at [address] [address] COMPREHENSIVE METABOLIC PANE Gera 05-11-2024 Albumin [Mass/Vol] 4.7 G/dl 3.5 - 5.0 G/dl [facility] Albumin/Globulin [Mass ratio] 1.1 {ratio} RATIO [facility] ALP [Catalytic activity/Vol] 87 U/L [facility] ALT [Catalytic activity/Vol] 58 U/L High NINF [facility] AST [Catalytic activity/Vol] 51 U/L High [facility] Bilirubin [Mass/Vol] 2.2 mg/dL High [facility] Calcium [Mass/Vol] 9.9 mg/dL [facility] Chloride [Moles/Vol] 106 mmol/L [facility] Comment on above: Please note: Triglyc eride levels of 600mg/dL or higher may positively bias chloride results by approximately 2.1 mmol CO2 [Moles/Vol] 21 mmol/L Low [facility] Creatinine [Mass/Vol] 0.73 mg/dL [facility] GFR COMMENT Average GFR for 30-3 9 years old = 107. [facility] Comment on above: Chronic Kidney disea se, GFR = <60. Kidney failure, GFR = <15. The GFR estimate is not adjusted for extreme body surface area or acute process, nor has it been validated for women or ethnic groups other than and . GFR/1.73 sq M.predicted among blacks MDRD (S/P/Bld) [Vol rate/Area] 119 mL/min/{1.73_m2} ml/min/1.73sq .m [facility] GFR/1.73 sq M.predicted among non-blacks MDRD (S/P/Bld) [Vol rate/Area] 98 mL/min/{1.73_m2} ml/min/1.73sq .[facility] Glucose post fast [Mass/Vol] 103 mg/dL [facility] Comment on above: NORMAL <100 mg/dL PREDIABETES 101-126 mg/dL DIABETES 126 mg/dL or higher Potassium [Moles/Vol] 3.3 mmol/L Low [facility] Protein [Mass/Vol] 9.1 g/dL [facility] Sodium [Moles/Vol] 138 mmol/L [facility] Urea nitrogen [Mass/Vol] 13 mg/dL [facility] CT HEAD WITHOUT CONTRASTon 0 05-11-2024 CT [...] Impression: 1. No acute intracranial abnormality. Normal [facility] CT Head WO contraston 2023 Impression: 1. [...] IMPRESSION Impression: 1. No acute intracranial abnormality. [facility] Radiology Study observation (narrative) [facility] CT Head WO contrastOrdered B y: Bayron Crawford on 05-11-2024 [facility] ED Prov Noteon 05-11-2024 ED Prov Note [facility] EMERGENCY DEPARTMENT - Emergency Medicine Attending Note: NAME: Yoel Quintanilla 34 y.o. CSN: [id number] PCP: Guerline Harvey CNP History: Chief Complaint: Drug Overdose HPI: The history was obtained from the patient and law enforcement. Yoel is a 34 y.o. female who presents with a chief complaint of Drug Overdose. Drug Overdose Associated symptoms: agitation Associated symptoms: no abdominal pain, no chest pain, no diarrhea, no headaches, no nausea, no shortness of breath and no vomiting Regional Controller's office reports that the patient was ordered [...] All other components within normal limits Narrative: [facility] has implemented the eGFR calculation [...] Procedure Abnormality Status --------- ------ CBC Auto Differential[[id number]] Abnormal Final result Please view results for [...] no hypoxi (more content not included)... Normal [facility] HCG ( test) Ql (U)o n 05-11-2024 [facility] HCG QUALITATIVE, URINEon HCG ( test) Ql (U) Negative NEGATIVE [facility] LIPASEon 05-11-2024 Lipase [Catalytic activity/Vol] 47 U/L 23 - 300 U/L [facility] LIPASE,SERUMon 05-11-2024 LIPASE,SERUM 47 U/L Normal 23-300 [facility] Comment on above: Performed By: #### A CBC, CMPF, LIPA2 #### [place] [address] No Panel Informationon 05-11 Interpretation and review of laboratory results Abnormal [facility] Interpretation and review of laboratory results Abnormal [facility] RAPID TOX SCREEN,URINEon AMPHETAMINE Positive Abnormal NEGATIVE [facility] Comment on above: Result Comment: <500 ng/ml CUTOFF *Unconfirmed Screening Result* Unconfirmed screening results are to be used only for medical treatment purposes. Performed By: #### R TOX, UMAC, UMIC, UHCGT #### Testing performed at [address] [address] BARBITURATES Negative Normal NEGATIVE [facility] Comment on above: Result Comment: <200 ng/ml CUTOFF Performed By: #### R TOX, UMAC, UMIC, UHCGT #### Testing performed at [address] [address] BENZODIAZEPINES Negative Normal NEGATIVE [facility] Comment on above: Result Comment: <200 ng/ml CUTOFF Performed By: #### R TOX, UMAC, UMIC, UHCGT #### Testing performed at [address] [address] BUPRENORPHINE Negative Normal NEGATIVE [facility] Comment on above: Result Comment: <12. 5 ng/ml CUTOFF Performed By: #### R TOX, UMAC, UMIC, UHCGT #### Testing performed at [address] [place] [id number] CANNABINOIDS Positive Abnormal NEGATIVE [facility] Comment on above: Result Comment: <50 ng/ml CUTOFF *Unconfirmed Screening Result* Unconfirmed screening results are to be used only for medical treatment purposes. Performed By: #### R TOX, UMAC, UMIC, UHCGT #### [place] [address] COCAINE Positive Abnormal NEGATIVE [facility] Comment on above: Result Comment: <150 ng/ml CUTOFF *Unconfirmed Screening Result* Unconfirmed screening results are to be used only for medical treatment purposes. Performed By: #### R TOX, UMAC, UMIC, UHCGT #### [place] [address] FENTANYL Positive Abnormal NEGATIVE [facility] Comment on above: Result Comment: 1.0 ng/mL CUTOFF *Unconfirmed Screening Result* Unconfirmed screening results are to be used only for medical treatment purposes. This test has not been approved by the FDA. Performed By: #### R TOX, UMAC, UMIC, UHCGT #### [place] [address] METHADONE Negative Normal NEGATIVE [facility] Comment on above: Result Comment: Meth adone Metabolite <100 ng/ml CUTOFF Performed By: #### R TOX, UMAC, UMIC, UHCGT #### [place] [address] METHAMPHETAMINE Positive Abnormal NEGATIVE [facility] Comment on above: Result Comment: <500 ng/ml CUTOFF *Unconfirmed Screening Result* Unconfirmed screening results are to be used only for medical treatment purposes. Performed By: #### R TOX, UMAC, UMIC, UHCGT #### [place] [address] OPIATES Negative Normal NEGATIVE [facility] Comment on above: Result Comment: <300 ng/ml CUTOFF Performed By: #### R TOX, UMAC, UMIC, UHCGT #### Testing performed at [address] [place] [address] OXYCODONE Negative Normal NEGATIVE [facility] Comment on above: Result Comment: <100 ng/ml CUTOFF Performed By: #### R TOX, UMAC, UMIC, UHCGT #### Testing performed at [address] [address] TRICYCLIC ANTIDEPRESSANTS Negative Normal NEGATIVE [facility] Comment on above: Result Comment: <100 0 ng/ml CUTOFF Performed By: #### R TOX, UMAC, UMIC, UHCGT #### Testing performed at [address] [address] TOXICOLOGY DRUG SCREEN, URIN Jaquan 05-11-2024 Amphetamine (U) [Mass/Vol] Positive Abnormal NEGATIVE NG/ML [facility] Comment on above: <500 ng/ml CUTOFF *Unconfirmed Screening Result* Unconfirmed screening results are to be used only for medical treatment purposes. Barbiturates Screen Ql (U) Negative NEGATIVE NG/ML [employer] [facility] Comment on above: <200 ng/ml CUTOFF Benzodiazepines Ql (U) Negative NEGATIVE NG/ML [facility] [employer] [facility] Comment on above: <200 ng/ml CUTOFF Benzoylecgonine Ql (U) Positive Abnormal NEGATIVE NG/ML [facility] [employer] [facility] Comment on above: <150 ng/ml CUTOFF *Unconfirmed Screening Result* Unconfirmed screening results are to be used only for medical treatment purposes. Buprenorphine Ql (U) Negative NEGATIVE NG/ML [facility] Comment on above: <12.5 ng/ml CUTOFF Cannabinoids Screen Ql (U) Positive Abnormal NEGATIVE NG/ML [employer] [facility] Comment on above: <50 ng/ml CUTOFF *Unconfirmed Screening Result* Unconfirmed screening results are to be used only for medical treatment purposes. Fentanyl Positive Abnormal NEGATIVE NG/ML [facility] Comment on above: 1.0 ng/mL CUTOFF *Unconfirmed Screening Result* Unconfirmed screening results are to be used only for medical treatment purposes. This test has not been approved by the FDA. Interpretation and review of laboratory results Abnormal [employer] [facility] Methadone Screen Ql (U) Negative NEGATIVE NG/ML [employer] [facility] Comment on above: Methadone Metabolite <100 ng/ml CUTOFF Methamphetamine (U) [Mass/Vol] Positive Abnormal NEGATIVE NG/ML [employer] [facility] Comment on above: <500 ng/ml CUTOFF *Unconfirmed Screening Result* Unconfirmed screening results are to be used only for medical treatment purposes. Opiates Screen Ql (U) Negative NEGATIVE NG/ML [facility] Comment on above: <300 ng/ml CUTOFF oxyCODONE Ql (U) Negative NEGATIVE NG/ML [facility] Comment on above: <100 ng/ml CUTOFF Tricyclic antidepressants Screen Ql (U) Negative NEGATIVE NG/ML [facility] Comment on above: <1000 ng/ml CUTOFF [facility] TROPONINon 05-11-2024 BASELINE TROPONIN T NG/L < Normal <=14 [facility] Comment on above: Performed By: #### 4 [id number] #### LAB [address] [address] Jason Rea M.D. [id number] TROPONIN T INTERPRETATION Normal Normal [facility] Comment on above: Performed By: #### 4 [id number] #### LAB [address] [place], [place] [address] Jason Rea M.D. [id number] URINALYSIS, MACROon 05-11-20 Bilirubin Ql (U) Negative NEGATIVE [facility] Clarity (U) CLEAR CLEAR [facility] Color (U) YELLOW YELLOW [facility] Glucose Test strip (U) [Mass/Vol] Negative NEGATIVE mg/dl [facility] Hemoglobin Ql (U) Negative NEGATIVE [facility] Ketones (U) [Mass/Vol] 40 mg/dL Abnormal NEGATIVE [facility] Leukocyte esterase Test strip Ql (U) Negative NEGATIVE [facility] Nitrite Ql (U) Negative NEGATIVE [facility] pH (U) 8.5 [pH] High 5.0 - 7.0 [facility] Protein Ql (U) 30 mg/dl Abnormal NEGATIVE [facility] Specific gravity (U) [Rel density] 1.020 1.010 - 1.025 [facility] Urobilinogen (U) [Mass/Vol] 0.2 mg/dL [facility] URINE HCG QUALon 05-11-2024 Beta HCG ( test) Ql (U) Negative Normal NEGATIVE [facility] Comment on above: Performed By: #### R TOX, UMAC, UMIC, UHCGT #### Testing performed at [address] [address] URINE MACROSCOPICon 05-11-20 24 Bilirubin Ql (U) Negative Normal NEGATIVE [facility] Comment on above: Performed By: #### R TOX, UMAC, UMIC, UHCGT #### Testing performed at [address] [address] Clarity (U) CLEAR Normal CLEAR [facility] Comment on above: Performed By: #### R TOX, UMAC, UMIC, UHCGT #### Testing performed at [address] [address] Color (U) YELLOW Normal YELLOW [facility] Comment on above: Performed By: #### R TOX, UMAC, UMIC, UHCGT #### Testing performed at [address] [address] Glucose Ql (U) Negative Normal NEGATIVE [facility] Comment on above: Performed By: #### R TOX, UMAC, UMIC, UHCGT #### Testing performed at [address] [address] pH (U) 8.5 [pH] High 5.0-7.0 [facility] Comment on above: Performed By: #### R TOX, UMAC, UMIC, UHCGT #### Testing performed at [address] [address] Protein (U) [Mass/Vol] 30 mg/dL Abnormal NEGATIVE [facility] Comment on above: Performed By: #### R TOX, UMAC, UMIC, UHCGT #### Testing performed at [address] [address] URINE HEMOGLOBIN Negative Normal NEGATIVE [facility] Comment on above: Performed By: #### R TOX, UMAC, UMIC, UHCGT #### Testing performed at [address] [address] URINE KETONE 40 mg/dl Abnormal NEGATIVE [facility] Comment on above: Performed By: #### R TOX, UMAC, UMIC, UHCGT #### Testing performed at [address] [address] URINE LEUKOTEST Negative Normal NEGATIVE [facility] Comment on above: Performed By: #### R TOX, UMAC, UMIC, UHCGT #### Testing performed at [address] [address] URINE NITRATES Negative Normal NEGATIVE [facility] Comment on above: Performed By: #### R TOX, UMAC, UMIC, UHCGT #### Testing performed at [address] [address] URINE SPEC GRAVITY 1.020 Normal 1.010-1.025 [facility] Comment on above: Performed By: #### R TOX, UMAC, UMIC, UHCGT #### Testing performed at [address] [address] Urobilinogen Qn (U) 0.2 {Cosme'U}/dL Normal 0.2-1.0 [facility] Comment on above: Performed By: #### R TOX, UMAC, UMIC, UHCGT #### Testing performed at [address] [address] URINE MICROSCOPICon 05-11-20 24 Bacteria LM.HPF (Urine sed) [#/Area] TRACE Abnormal NEGATIVE [facility] Casts LM.LPF (Urine sed) [#/Area] NONE NONE /LPF [facility] Crystals LM Nom (Urine sed) NONE NONE [facility] Epithelial cells LM Ql (Urine sed) 1 TO 5 /HPF [facility] Mucus Ql (Urine sed) TRACE Abnormal NEGATIVE [facility] RBC LM.HPF (Urine sed) [#/Area] 1 TO 5 NEGATIVE /HPF [facility] Urine sediment comments LM Duane (Urine sed) CULTURE CRITERIA NOT MET, NO CULTURE PERFORMED. [facility] WBC LM.HPF (Urine sed) [#/Area] 1 TO 5 NEGATIVE /HPF [facility] BACTERIA TRACE Abnormal NEGATIVE [facility] Comment on above: Performed By: #### R TOX, UMAC, UMIC, UHCGT #### Testing performed at [address] [address] CASTS NONE Normal [facility] Comment on above: Performed By: #### R TOX, UMAC, UMIC, UHCGT #### Testing performed at [address] [address] CRYSTAL NONE Normal NONE [facility] Comment on above: Performed By: #### R TOX, UMAC, UMIC, UHCGT #### Testing performed at [address] [address] Epithelial cells LM Ql (Urine sed) 1 TO 5 Normal [facility] Comment on above: Performed By: #### R TOX, UMAC, UMIC, UHCGT #### Testing performed at [address] [address] Mucus Ql (Urine sed) TRACE Abnormal NEGATIVE [facility] Comment on above: Performed By: #### R TOX, UMAC, UMIC, UHCGT #### Testing performed at [address] [address] URINE COMMENT CULTURE CRITERIA NOT MET, NO CULTURE PERFORMED. Normal [facility] Comment on above: Performed By: #### R TOX, UMAC, UMIC, UHCGT #### Testing performed at [address] [address] URINE RBC'S 1 TO 5 Normal NEGATIVE [facility] Comment on above: Performed By: #### R TOX, UMAC, UMIC, UHCGT #### Testing performed at [address] [address] URINE WBC'S 1 TO 5 Normal NEGATIVE [facility] Comment on above: Performed By: #### R TOX, UMAC, UMIC, UHCGT #### Testing performed at [address] [address] AMPHETAMINE CONFIRM,URINEon 08-06-2022 AMPHETAMINES 3041 ng/mL Normal [facility] Comment on above: Result Comment: Cons istent [...] developed and its performance characteristics determined by [facility]. It has not been cleared or approved by the [place] Food and Drug Administration. This test was performed in a CLIA certified laboratory and is intended for clinical purposes. Performed By: #### A MPC1 #### [address] [address] MDA <[address] [facility] Comment on above: Performed By: #### A MPC1 #### [address] [address] MDEA <[address] [facility] Comment on above: Performed By: #### A MPC1 #### [address] [address] MDMA <[address] [facility] Comment on above: Performed By: #### A MPC1 #### [address] [address] METHAMPHETAMINE >[address] Normal [facility] Comment on above: Result Comment: Cons istent with use of a drug containing methamphetamine. Methamphetamine is metabolized to amphetamine. Amphetamine and methamphetamine exist in d- and l-isomeric forms. These forms are not distinguished by this test. Isomeric separation is available separately for an additional charge. Performed By: #### A MPC1 #### [address] [address] PHENTERMINE <[address] [facility] Comment on above: Result Comment: Perf ormed By: [facility] [employer] [address] [place], [place] [id number] Credit Control Assistant: Jason Cortés MD, PhD Performed By: #### A MPC1 #### [address] [address] CANNABINOID CONFIRM.URINEon 08-06-2022 28-ELN-4-CARBOXY- THC 29 ng/mL Normal [facility] Comment on above: Result Comment: INTE RPRETIVE INFORMATION: THC Metabolite, Urine, Quantitative Methodology: Quantitative Liquid Chromatography-Tandem Mass Spectrometry Positive cutoff: 15 ng/mL For medical purposes only; not valid for forensic use. The drug analyte detected in this assay, 9-carboxy THC, is a metabolite of fvgih-7-buoryhgcoiylzevocume (THC). Detection of 9-carboxy THC suggests use [...] developed and its performance characteristics determined by [facility]. It has not been cleared or approved by the [place] Food and Drug Administration. This test was performed in a CLIA certified laboratory and is intended for clinical purposes. Performed By: [facility] [address] [place] [address] Credit Control Assistant: Jason Cortés MD, PhD Performed By: #### C ANCN #### [address] [address] COCAINE CONFIRM,URINEon BENZOYLECGONINE,U 89 ng/mL Normal [facility] Comment on above: Result Comment: INTE RPRETIVE [...] developed and its performance characteristics determined by [facility]. It has not been cleared or approved by the [place] Food and Drug Administration. This test was performed in a CLIA certified laboratory and is intended for clinical purposes. Performed by [facility], [address] [place] [id number] [email or web address], Jason Cortés MD, PHD - Lab. Director Performed By: #### C OCCN #### [address] [address] FENTANYL CONFIRM, URINEon FENTANYL CONFIRM,U 118.0 ng/mL Abnormal Cutoff<2.5 [facility] Comment on above: Result Comment: Cons istent with use of drug containing fentanyl, such as Duragesic. Performed By: #### F ENTU #### [facility] [address] [place] [address] NORFENTANYL CONFIRM,U >200.0 Abnormal Cutoff<2.5 [facility] Comment on above: Result Comment: Fent anyl [...] testing. Performed By: #### F ENTU #### [facility] [address] [place] [address] OPIATE CONFIRMATION,URINEon 08-06-2022 6-ACETYLMORPHINE <25 Normal Cutoff <25 [facility] Comment on above: Performed By: #### O PIC2 #### [facility] [address] [place] [address] CODEINE <50 Normal Cutoff <50 [facility] Comment on above: Performed By: #### O PIC2 #### [facility] [address] [place] [address] HYDROCODONE <25 Normal Cutoff <25 [facility] Comment on above: Performed By: #### O PIC2 #### [facility] [address] [place] [address] HYDROMORPHONE <25 Normal Cutoff <25 [facility] Comment on above: Performed By: #### O PIC2 #### [facility] [address] [place] [address] MORPHINE 393 ng/mL Abnormal Cutoff <50 [facility] Comment on above: Result Comment: Cons istent with metabolism of a drug containing codeine or heroin. May also reflect independent use of a drug containing morphine. Performed By: #### O PIC2 #### [facility] [address] [place] [address] NORHYDROCODONE <25 Normal Cutoff <25 [facility] Comment on above: Performed By: #### O PIC2 #### [facility] [address] [place] [address] NOROXYCODONE <25 Normal Cutoff <25 [facility] Comment on above: Performed By: #### O PIC2 #### [facility] [address] [place] [address] OXYCODONE <25 Normal Cutoff <25 [facility] Comment on above: Performed By: #### O PIC2 #### [facility] [address] [place] [address] OXYMORPHONE <25 Normal Cutoff <25 [facility] Comment on above: Result Comment: The performance [...] testing. Performed By: #### O PIC2 #### [facility] [address] [place] [address] DRUG SCREEN,URINE WITH REFLE X TO CONFIRMATIONon 08-02-2022 AMPHETAMINE SCREEN,U Positive Abnormal NEGATIVE [facility] Comment on above: Result Comment: CUTO FF LEVEL: 500 NG/ML Cross-reactivity has been reported with high concentrations of the following drugs: buproprion, chloroquine, chlorpromazine, ephedrine, mephentermine, fenfluramine, phentermine, phenylpropanolamine, pseudoephedrine, and propranolol. Performed By: #### D RUGR #### [place] [address] BARBITURATES SCREEN,U Negative Normal NEGATIVE [facility] Comment on above: Result Comment: CUTO FF LEVEL: 200 NG/ML Performed By: #### D RUGR #### [place] [id number] BENZODIAZEPINES SCREEN,U Negative Normal NEGATIVE [facility] Comment on above: Result Comment: CUTO FF LEVEL: 200 NG/ML Performed By: #### D RUGR #### [place] [id number] CANNABINOIDS SCREEN,U Positive Abnormal NEGATIVE [facility] Comment on above: Result Comment: CUTO FF LEVEL: 50 NG/ML Performed By: #### D RUGR #### [place] [address] COCAINE METABOLITE SCREEN,U Positive Abnormal NEGATIVE [facility] Comment on above: Result Comment: CUTO FF LEVEL: 150 NG/ML Performed By: #### D RUGR #### [place] [address] DRUG SCREEN COMMENT SEE BELOW Normal [facility] Comment on above: Result Comment: Drug screen [...] directors. Performed By: #### D RUGR #### [place] [address] FENTANYL SCREEN,URINE Positive Abnormal NEGATIVE [facility] Comment on above: Result Comment: CUTO FF LEVEL: 5 NG/ML Performed By: #### D RUGR #### [place] [address] METHADONE SCREEN,U Negative Normal NEGATIVE [facility] Comment on above: Result Comment: CUTO FF LEVEL: 150 NG/ML The metabolite R-fjefo-cjqwvlxtjrhjiu (LAAM) is not detected by this method in concentrations that would be found in the urine of patients on LAAM therapy. Performed By: #### D RUGR #### [place] [address] OPIATES SCREEN,U Positive Abnormal NEGATIVE [facility] Comment on above: Result Comment: CUTO FF LEVEL: 300 NG/ML The opiate screen does not detect fentanyl, meperidine, or tramadol. Oxycodone is not consistently detected (refer to Oxycodone Screen, Urine result). Performed By: #### D RUGR #### [place] [address] OXYCODONE SCREEN,U Negative Normal NEGATIVE [facility] Comment on above: Result Comment: CUTO FF LEVEL: 100 NG/ML This test will accurately detect both oxycodone and oxymorphone. Performed By: #### D RUGR #### [place] [address] PCP SCREEN,U Negative Normal NEGATIVE [facility] Comment on above: Result Comment: CUTO FF LEVEL: 25 NG/ML Cross-reactivity has been reported with dextromethorphan. Performed By: #### D RUGR #### [place] [address] Provider Note - ED v3on 11-0 Provider [...] made to minimize errors. 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 Please call if questions.. [...] orally 3 times a day Drug Name: Joiibvrx-SEG-8 0.1 mg/24 hr transdermal film, extended release [...] SIGNS: T PRBP SpO2O2(LPM) %FiO2 Method 02-Aug-2022 14:00:[id number] 97RA [facility] MDM/ED COURSE: 1) h/o MRSA presenting with [...] seeking admission to local withdrawal unit through [facility]. A urine quantitative hcg was negative, Utox [...] abuse Code:F19.10 (more content not included)... Normal [facility] GC + CHLAMYDIA BY AMPLIFIED DETECTIONon 07-16-2022 CHLAMYDIA TRACH.,AMPLIFIED Negative Normal Negative [facility] Comment on above: Result Comment: The APTIMA Combo 2 assay is FDA-approved for Chlamydia trachomatis and Neisseria gonorrhoeae testing on female endocervical and vaginal swabs, ThinPrep liquid pap samples, male urine samples and urethral swabs. Performance characteristics for Chlamydia trachomatis and Neisseria gonorrhoeae testing on specific giy-PLT-fevdtdbh sample types (female urine samples) have been validated by [facility]. This laboratory is certified by CLIA to perform high complexity testing. Samples from all other sites are not validated for this method. Performed By: #### G [facility] #### [facility] [address] [place] [address] N.GONORRHEA,AMPLI FIED Negative Normal Negative [facility] Comment on above: Result Comment: The APTIMA Combo 2 assay is FDA-approved for Chlamydia trachomatis and Neisseria gonorrhoeae testing on female endocervical and vaginal swabs, ThinPrep liquid pap samples, male urine samples and urethral swabs. Performance characteristics for Chlamydia trachomatis and Neisseria gonorrhoeae testing on specific wvn-YOB-shkeyfsv sample types (female urine samples) have been validated by [facility]. This laboratory is certified by CLIA to perform high complexity testing. Samples from all other sites are not validated for this method. Performed By: ###Adriano Mace [facility] #### [facility] [address] [place] [address] TRICHOMONAS,NUCLEIC ACID DET ECTIONon 07-16-2022 TRICHOMONAS VAGINALIS Negative Normal Negative [facility] Comment on above: Result Comment: The APTIMA Trichomonas vaginalis assay is FDA-approved for testing on female endocervical swabs, vaginal swabs, and ThinPrep liquid pap samples. Performance characteristics for Trichomonas vaginalis on specific vhe-VIA-ocmaeebt sample types (female and male urine and male urethral swabs) have been validated by [facility]. This laboratory is certified by CLIA to perform high complexity testing. Samples from all other sites are not validated for this method. Performance characteristics for Trichomonas Vaginalis testing on urine samples has been validated by [facility]. Testing on this sample type is not FDA-approved, but such approval is not necessary. This laboratory is certified by CLIA to perform high complexity testing. Performed By: ###Adriano CARTER #### [facility] [address] [place] [address] GC + CHLAMYDIA BY AMPLIFIED DETECTIONon 07-15-2022 Lab Specimen Source Urine Normal [facility] Comment on above: Performed By: ###Adriano Mace [facility] #### [facility] [address] [place] [address] Performed By: ###Adriano CARTER #### [facility] [address] [place] [address] MISCELLANEOUS CULT./SM.BACT. on 07-15-2022 MISCELLANEOUS CULT./SM.BACT. PATIENT: YOEL QUINTANILLA LOCATION: [facility] BILL#: [id number] : 89 AGE: SEX: F ORDERED BY: [...] Comment on above: Performed By: #### M [facility] #### [facility] [address] [place] [address] Provider Note - ED v3on 06-29 Provider [...] she is planning to be seen at [facility] today, she has had subutex in the past & agrees it is the best fit. She mentions no suicidal ideation. Pt uses 1g heroin daily. she mentions started when she was younger as a teenager when prescribed meds for a toothache. [place] . She then states she had a [...] tab(s) sublingually 2 times a day ANGELA: [id number] Drug Name: clindamycin 150 mg oral capsule [...] SIGNS: T PRBP SpO2O2(LPM) %FiO2 Method 15-Jul-2022 13:58:[id number] 99RA [facility] MDM/ED COURSE: 1) bilateral upper arm superficial [...] Findings wi (more content not included)... Normal [facility] URINALYSIS WITH CULTURE IF I NDICATEDon 07-15-2022 Appearance (U) HAZY Normal CLEAR [facility] Comment on above: Performed By: #### U ARFX #### [place] [address] Bilirubin Ql (U) Negative Normal NEGATIVE [facility] Comment on above: Performed By: #### U ARFX #### [place] [address] Color (U) Yellow Normal STRAW,YELLOW [facility] Comment on above: Performed By: #### U ARFX #### [place] [id number] Glucose Ql (U) Negative Normal NEGATIVE [facility] Comment on above: Performed By: #### U ARFX #### [address] [address] Hemoglobin Ql (U) Negative Normal NEGATIVE [facility] Comment on above: Performed By: #### U ARFX #### [place] [id number] Ketones Ql (U) Negative Normal NEGATIVE [facility] Comment on above: Performed By: #### U ARFX #### [place] [id number] Leukocyte esterase Test strip Ql (U) Negative Normal NEGATIVE [facility] Comment on above: Performed By: #### U ARFX #### [address] [address] Nitrite Ql (U) Negative Normal NEGATIVE [facility] Comment on above: Performed By: #### U ARFX #### [address] [address] pH (U) 6.0 [pH] Normal 5.0 - 8.0 [facility] Comment on above: Performed By: #### U ARFX #### [address] [address] Protein Ql (U) Negative Normal NEGATIVE [facility] Comment on above: Performed By: #### U ARFX #### [address] [address] Specific gravity (U) [Rel density] 1.026 Normal 1.005 - 1.035 [facility] Comment on above: Performed By: #### U ARFX #### [address] [address] Urobilinogen (U) [Mass/Vol] 4.0 mg/dL High 0.0 - 1.9 [facility] Comment on above: Result Comment: SOME PIGMENTS AND MEDICATIONS MAY CAUSE A FALSE POSITIVE UROBILINOGEN Performed By: #### U ARFX #### [address] [address] Lab Specimen Source Normal [facility] Comment on above: Performed By: #### U ARFX #### [address] [address] XR FOOT RIGHT 3+ VIEWS (MELANI JENKINS)Ordered By: Jamila Anderson on 04-06-2021 Moderate soft tissue swelling with subcutaneous air in the medial right midfoot. Consider infection with a gas-forming organism. Workstation ID: [id number] [facility] EXAMINATION: XR FOOT RIGHT 3+ VIEWS (STANDARD) [...] mid foot EFFUSION: None visible. OTHER: Negative. [facility] Interface, Rad In Fu ji Speechq - [...] with a gas-forming organism. Workstation ID: [id number] [facility] Alcohol, Medicalon 0 Ethanol [Mass/Vol] mg/dL <10.00 mg/dL [facility] Comment on above: Alcohol cutoff: <10. 00 mg/dL = None Detected Interpretation and review of laboratory results Normal [facility] CBC WITH AUTO DIFFERENTIALon 02-24-2020 Basophils (Bld) [#/Vol] 0.04 10*3/uL [facility] Basophils/100 WBC (Bld) 0.7 % [facility] Eosinophils (Bld) [#/Vol] 0.36 10*3/uL [facility] Eosinophils/100 WBC (Bld) 5.9 % [facility] Erythrocyte distribution width (RBC) [Entitic vol] 13.9 % 11.6 - 14.8 % [facility] Hematocrit (Bld) [Volume fraction] 35.7 % Low 36 - 46 % [facility] Hemoglobin (Bld) [Mass/Vol] 11.4 g/dL Low 12 - 16 g/dL [facility] Immature granulocytes (Bld) [#/Vol] 0.02 10*3/uL [facility] Immature granulocytes/100 WBC (Bld) 0.30 % [facility] Comment on above: The IG parameter is the percentage of metamyelocytes, myelocytes and promyelocytes. An immature granulocyte count (IG) of 1% or more suggests the possibility of infection, an IG count of 3% is very likely related to an infection. Interpretation and review of laboratory results Abnormal [facility] Lymphocytes (Bld) [#/Vol] 3.24 10*3/uL [facility] Lymphocytes/100 WBC (Bld) 53.4 % [facility] MCH (RBC) [Entitic mass] 25.3 pg Low 26 - 34 pg [facility] MCHC (RBC) [Mass/Vol] 31.9 g/dL 31 - 37 g/dL [facility] MCV (RBC) [Entitic vol] 79.2 fL Low 80 - 100 fL [facility] Monocytes (Bld) [#/Vol] 0.46 10*3/uL [facility] Monocytes/100 WBC (Bld) 7.6 % [facility] Neutrophils (Bld) [#/Vol] 1.95 10*3/uL [facility] Neutrophils/100 WBC (Bld) 32.1 % [facility] Nucleated RBC (Bld) [#/Vol] 0.00 10*3/uL [facility] Nucleated RBC/100 WBC (Bld) [Ratio] 0.0 % [facility] Platelet mean volume (Bld) [Entitic vol] 10.4 fL 9.4 - 12.4 fL [facility] Platelets (Bld) [#/Vol] 252 10*3/uL [facility] RBC (Bld) [#/Vol] 4.51 10*6/uL [facility] WBC (Bld) [#/Vol] 6.07 10*3/uL [facility] Chem 02-24-2020 Anion gap [Moles/Vol] 10 mmol/L 10 - 20 mmol/L [facility] Chloride [Moles/Vol] 106 mmol/L 98 - 108 mmol/L [facility] Creatinine [Mass/Vol] 0.72 mg/dL 0.40 - 1.10 [facility] GFR/1.73 sq M predicted among non-blacks MDRD (S/P/Bld) [Vol rate/Area] The eGFR should be used for monitoring renal function only and not for medication dosing. [facility] GFR/1.73 sq M.predicted CKD-EPI (S/P/Bld) [Vol rate/Area] 115 >=60 mL/min/1.73 m2 [facility] Glucose [Mass/Vol] 93 mg/dL 65 - 99 mg/dL [facility] HCO3 [Moles/Vol] 28 mmol/L 21 - 32 mmol/L [facility] Potassium [Moles/Vol] 3.5 mmol/L 3.5 - 5.1 mmol/L [facility] Sodium [Moles/Vol] 140 mmol/L 135 - 145 mmol/L [facility] Urea nitrogen [Mass/Vol] 6 mg/dL Low 8 - 25 mg/dL [facility] Urea nitrogen/Creatini ne [Mass ratio] 8.3 mg/mg Low [facility] Hepatic Function Panel (LFT) on 02-24-2020 Albumin [Mass/Vol] 3.3 g/dL 3.2 - 5.2 g/dL [facility] ALP [Catalytic activity/Vol] 74 U/L 40 - 140 U/L [facility] ALT [Catalytic activity/Vol] 22 U/L 14 - 65 U/L [facility] AST [Catalytic activity/Vol] 15 U/L 0 - 45 U/L [facility] Bilirubin [Mass/Vol] 0.6 mg/dL 0 - 1.3 mg/dL [facility] Bilirubin.conjuga jordan [Mass/Vol] 0.2 mg/dL 0 - 0.4 mg/dL [facility] Protein [Mass/Vol] 8.2 g/dL High 6 - 8 g/dL [facility] Lipaseon 02-24-2020 Lipase [Catalytic activity/Vol] 50 U/L Low 73 - 393 U/L [facility] Otheron 02-24-2020 Extra Tube Hold for add-ons. [facility] Comment on above: Auto resulted. Interpretation and review of laboratory results Abnormal [facility] CBC WITH AUTO DIFFERENTIALon 01-27-2020 Basophils (Bld) [#/Vol] 0.11 10*3/uL [facility] Basophils/100 WBC (Bld) 1.5 % [facility] Eosinophils (Bld) [#/Vol] 0.20 10*3/uL [facility] Eosinophils/100 WBC (Bld) 2.7 % [facility] Erythrocyte distribution width (RBC) [Entitic vol] 14.2 % 11.6 - 14.8 % [facility] Hematocrit (Bld) [Volume fraction] 34.7 % Low 36 - 46 % [facility] Hemoglobin (Bld) [Mass/Vol] 11.2 g/dL Low 12 - 16 g/dL [facility] Immature granulocytes (Bld) [#/Vol] 0.02 10*3/uL [facility] Immature granulocytes/100 WBC (Bld) 0.30 % [facility] Comment on above: The IG parameter is the percentage of metamyelocytes, myelocytes, and promyelocytes. Interpretation and review of laboratory results Abnormal [facility] Lymphocytes (Bld) [#/Vol] 3.25 10*3/uL [facility] Lymphocytes/100 WBC (Bld) 43.7 % [facility] MCH (RBC) [Entitic mass] 25.7 pg Low 26 - 34 pg [facility] MCHC (RBC) [Mass/Vol] 32.3 g/dL 31 - 37 g/dL [facility] MCV (RBC) [Entitic vol] 79.8 fL Low 80 - 100 fL [facility] Monocytes (Bld) [#/Vol] 0.97 10*3/uL High [facility] Monocytes/100 WBC (Bld) 13.1 % [facility] Neutrophils (Bld) [#/Vol] 2.88 10*3/uL [facility] Neutrophils/100 WBC (Bld) 38.7 % [facility] Comment on above: Peripheral smear rev iewed manually Nucleated RBC (Bld) [#/Vol] 0.00 10*3/uL [facility] Nucleated RBC/100 WBC (Bld) [Ratio] 0.0 % [facility] Platelet mean volume (Bld) [Entitic vol] 10.6 fL 9 - 15.5 fL [facility] Platelets (Bld) [#/Vol] 197 10*3/uL [facility] RBC (Bld) [#/Vol] 4.35 10*6/uL [facility] WBC (Bld) [#/Vol] 7.43 10*3/uL [facility] Comprehensive Metabolic Pane gera 01-27-2020 Albumin [Mass/Vol] 3.5 g/dL 3.2 - 5.2 g/dL [facility] ALP [Catalytic activity/Vol] 94 U/L 40 - 140 U/L [facility] ALT [Catalytic activity/Vol] 246 U/L High 14 - 65 U/L [facility] Anion gap [Moles/Vol] 9 mmol/L Low 10 - 20 mmol/L [facility] AST [Catalytic activity/Vol] 173 U/L High 0 - 45 U/L [facility] Bilirubin [Mass/Vol] 0.7 mg/dL 0 - 1.3 mg/dL [facility] Calcium [Mass/Vol] 9.0 mg/dL 8.4 - 10.2 mg/dL [facility] Chloride [Moles/Vol] 106 mmol/L 98 - 108 mmol/L [facility] Creatinine [Mass/Vol] 0.89 mg/dL 0.40 - 1.10 [facility] GFR/1.73 sq M predicted among non-blacks MDRD (S/P/Bld) [Vol rate/Area] The eGFR should be used for monitoring renal function only and not for medication dosing. [facility] GFR/1.73 sq M.predicted CKD-EPI (S/P/Bld) [Vol rate/Area] 89 >=60 mL/min/1.73 m2 [facility] Glucose [Mass/Vol] 94 mg/dL 65 - 99 mg/dL [facility] HCO3 [Moles/Vol] 28 mmol/L 21 - 32 mmol/L [facility] Potassium [Moles/Vol] 3.6 mmol/L 3.5 - 5.1 mmol/L [facility] Protein [Mass/Vol] 8.0 g/dL 6 - 8 g/dL [facility] Sodium [Moles/Vol] 139 mmol/L 135 - 145 mmol/L [facility] Urea nitrogen [Mass/Vol] 14 mg/dL 8 - 25 mg/dL [facility] Urea nitrogen/Creatini ne [Mass ratio] 15.7 mg/mg [facility] DRUGS OF ABUSE SCREEN, URINE on 01-27-2020 Amphetamines Ql (U) Positive Abnormal None Detected [facility] Comment on above: Urine Amphetamine Cu toff: < 1000 ng/mL = None Detected Barbiturates Screen Ql (U) None Detected None Detected [facility] Comment on above: Urine Barbiturates C utoff: < 200 ng/mL = None Detected Benzodiazepines Ql (U) None Detected None Detected [facility] Comment on above: Urine Benzodiazepine Cutoff: < 200 ng/mL = None Detected Cannabinoids Screen Ql (U) Positive Abnormal None Detected [facility] Comment on above: Urine Cannabinoids C utoff: < 50 ng/mL = None Detected Cocaine Ql (U) Positive Abnormal None Detected [facility] Comment on above: Urine Cocaine Cutoff : < 300 ng/mL = None Detected Interpretation and review of laboratory results Abnormal [facility] Methadone Screen Ql (U) None Detected None Detected [facility] Comment on above: Urine Methadone Cuto ff: < 300 ng/mL = None Detected Opiates Screen Ql (U) Positive Abnormal None Detected [facility] Comment on above: Urine Opiates Cutoff : < 300 ng/mL = None Detected Oxycodone Ql (U) None Detected None Detected [facility] Comment on above: Urine Oxycodone Cuto ff: < 100 ng/mL = None Detected Screen results shoul d be used for treatment purposes only. Specimen will be kept for 1 week, if the sample is adequate. Confirmation testing can be initiated by calling the lab within 1 week. [facility] Lipaseon 01-27-2020 Lipase [Catalytic activity/Vol] 40 U/L Low 73 - 393 U/L [facility] MORPHOLOGYon 01-27-2020 RBC morphology finding Nom (Bld) Normal [facility] Otheron 01-27-2020 Interpretation and review of laboratory results Abnormal [facility] URINALYSISon 01-27-2020 Bacteria Auto Ql (U) Few Abnormal None Seen /hpf [facility] Bilirubin Ql (U) Negative Negative [facility] th Clarity Refractometry automated (U) Cloudy Abnormal Clear [facility] Color (U) Suri Abnormal Colorless, Yellow [facility] Epithelial cells.squamous Auto (Urine sed) [#/Area] 86 High [facility] Glucose Auto test strip (U) [Mass/Vol] Negative Negative mg/dL [facility] Hemoglobin Auto test strip Ql (U) Small Abnormal Negative [facility] Interpretation and review of laboratory results Abnormal [facility] Ketones (U) [Mass/Vol] Negative Negative mg/dL [facility] Leukocyte esterase Auto test strip Ql (U) Trace Abnormal Negative [facility] Mucus Auto (Urine sed) [#/Area] Many Abnormal None Seen, Rare /lpf [facility] Nitrite Auto test strip Ql (U) Negative Negative [facility] pH (U) 5.0 [pH] [facility] Protein (U) [Mass/Vol] 100 Abnormal Negative mg/dL [facility] RBC Auto (Urine sed) [#/Area] 11 High [facility] Specific gravity (U) [Rel density] 1.034 High [facility] Urobilinogen (U) [Mass/Vol] 2.0 mg/dL Abnormal <2.0 [facility] WBC Auto (Urine sed) [#/Area] 16 High [facility] Microscopic examinat ion is performed on all urinalysis samples and only positive findings are reported. The test for blood on the chemical analytic portion of urinalysis may also be positive due to hemoglobinuria and myoglobinuria and if red blood cells are present they are quantified by microscopic examination. [facility] Urine Pregnancyon 01-27-2020 HCG ( test) Ql (U) Negative Negative [facility] Interpretation and review of laboratory results Normal [facility] Alcohol, Medicalon 9 Ethanol [Mass/Vol] mg/dL <10.00 mg/dL [facility] Interpretation and review of laboratory results Normal [facility] BMPon 05-05-2019 Anion gap [Moles/Vol] 10 mmol/L 10 - 20 mmol/L [facility] Calcium [Mass/Vol] 9.8 mg/dL 8.4 - 10.2 mg/dL [facility] Chloride [Moles/Vol] 106 mmol/L 98 - 108 mmol/L [facility] Creatinine [Mass/Vol] 0.83 mg/dL 0.4 - 1.1 mg/dL [facility] GFR/1.73 sq M predicted among non-blacks MDRD (S/P/Bld) [Vol rate/Area] The eGFR should be used for monitoring renal function only and not for medication dosing. [facility] GFR/1.73 sq M.predicted CKD-EPI (S/P/Bld) [Vol rate/Area] 97 >=60 mL/min/1.73 m2 [facility] Glucose [Mass/Vol] 97 mg/dL 65 - 99 mg/dL [facility] HCO3 [Moles/Vol] 25 mmol/L 21 - 32 mmol/L [facility] Potassium [Moles/Vol] 3.9 mmol/L 3.5 - 5.1 mmol/L [facility] Sodium [Moles/Vol] 137 mmol/L 135 - 145 mmol/L [facility] Urea nitrogen [Mass/Vol] 11 mg/dL 8 - 25 mg/dL [facility] Urea nitrogen/Creatini ne [Mass ratio] 13.3 mg/mg [facility] CBC WITH AUTO DIFFERENTIALon 05-05-2019 Basophils (Bld) [#/Vol] 0.06 10*3/uL [facility] Basophils/100 WBC (Bld) 0.8 % [facility] Eosinophils (Bld) [#/Vol] 0.20 10*3/uL [facility] Eosinophils/100 WBC (Bld) 2.5 % [facility] Erythrocyte distribution width (RBC) [Entitic vol] 12.9 % 11.6 - 14.8 % [facility] Hematocrit (Bld) [Volume fraction] 41.2 % 36 - 46 % [facility] Hemoglobin (Bld) [Mass/Vol] 14.1 g/dL 12 - 16 g/dL [facility] Immature granulocytes (Bld) [#/Vol] 0.02 10*3/uL [facility] Immature granulocytes/100 WBC (Bld) 0.30 % [facility] Comment on above: The IG parameter is the percentage of metamyelocytes, myelocytes, and promyelocytes. Lymphocytes (Bld) [#/Vol] 2.61 10*3/uL [facility] Lymphocytes/100 WBC (Bld) 32.7 % [facility] MCH (RBC) [Entitic mass] 27.9 pg 26 - 34 pg [facility] MCHC (RBC) [Mass/Vol] 34.2 g/dL 31 - 37 g/dL [facility] MCV (RBC) [Entitic vol] 81.4 fL 80 - 100 fL [facility] Monocytes (Bld) [#/Vol] 0.49 10*3/uL [facility] Monocytes/100 WBC (Bld) 6.1 % [facility] Neutrophils (Bld) [#/Vol] 4.61 10*3/uL [facility] Neutrophils/100 WBC (Bld) 57.6 % [facility] Nucleated RBC (Bld) [#/Vol] 0.00 10*3/uL [facility] Nucleated RBC/100 WBC (Bld) [Ratio] 0.0 % [facility] Platelet mean volume (Bld) [Entitic vol] 10.5 fL 9 - 15.5 fL [facility] Platelets (Bld) [#/Vol] 260 10*3/uL [facility] RBC (Bld) [#/Vol] 5.06 10*6/uL [facility] eah WBC (Bld) [#/Vol] 7.99 10*3/uL [facility]UGS OF ABUSE SCREEN, URINE on 05-05-2019 Amphetamines Ql (U) Positive Abnormal None Detected [facility] Comment on above: Urine Amphetamine Cutoff: < 1000 ng/mL = None Detected Barbiturates Screen Ql (U) None Detected None Detected [facility] Comment on above: Urine Barbiturates Cutoff: < 200 ng/mL = None Detected Benzodiazepines Ql (U) None Detected None Detected [facility] Comment on above: Urine Benzodiazepine Cutoff: < 200 ng/mL = None Detected Cannabinoids Screen Ql (U) Positive Abnormal None Detected [facility] Comment on above: Urine Cannabinoids Cutoff: < 50 ng/mL = None Detected Cocaine Ql (U) None Detected None Detected [facility] Comment on above: Urine Cocaine Cutoff: < 300 ng/mL = None Detected Interpretation and review of laboratory results Abnormal [facility] Methadone Screen Ql (U) None Detected None Detected [facility] Comment on above: Urine Methadone Cutoff: < 300 ng/mL = None Detected Opiates Screen Ql (U) None Detected None Detected [facility] Comment on above: Urine Opiates Cutoff: < 300 ng/mL = None Detected Oxycodone Ql (U) None Detected None Detected [facility] [place] Comment on above: Urine Oxycodone Cutoff: < 100 ng/mL = None Detected Screen results shoul d be used for treatment purposes only. Specimen will be kept for 1 week, if the sample is adequate. Confirmation testing can be initiated by calling the lab within 1 week. [facility] Hepatic Function Panel (LFT) on 05-05-2019 Albumin [Mass/Vol] 4.0 g/dL 3.2 - 5.2 g/dL [facility] ALP [Catalytic activity/Vol] 80 U/L 40 - 140 U/L [facility] ALT [Catalytic activity/Vol] 68 U/L High 14 - 65 U/L [facility] AST [Catalytic activity/Vol] 32 U/L 0 - 45 U/L [facility] Bilirubin [Mass/Vol] 1.5 mg/dL High 0 - 1.3 mg/dL [facility] Bilirubin.conjuga jordan [Mass/Vol] 0.3 mg/dL 0 - 0.4 mg/dL [facility] Interpretation and review of laboratory results Abnormal [facility] Protein [Mass/Vol] 9.0 g/dL High 6 - 8 g/dL [facility] Lipaseon 05-05-2019 Lipase [Catalytic activity/Vol] 83 U/L 73 - 393 U/L [facility] Otheron 05-05-2019 Interpretation and review of laboratory results Normal [facility] PT/INRon 05-05-2019 INR Coag (PPP) [Relative time] 1.0 {INR} [facility] Interpretation and review of laboratory results Normal [facility] PT Coag (PPP) [Time] 13.2 s [facility] During the induction phase of oral anticoagulation, the INR may not reflect the anticoagulation status of the patient. Therapeutic ranges for INR's are: Most clinical situations: INR 2.0-3.0 Mechanical Prosthetic Valve: INR 2.5-3.5 Critical: INR >5.0 [facility] TROPONINon 05-05-2019 Troponin I.cardiac [Mass/Vol] Normal [facility] Troponin I.cardiac [Mass/Vol] ng/mL <=45 ng/L [facility] URINALYSISon 05-05-2019 Bacteria Auto Ql (U) Few Abnormal None Seen /hpf [facility] Bilirubin Ql (U) Negative Negative [facility] Clarity Refractometry automated (U) Cloudy Abnormal Clear [facility] Color (U) Yellow Colorless, Yellow [facility] Crystals.amorphou s Computer assisted (U) [#/Area] Many Abnormal None Seen, Rare /hpf [facility] Epithelial cells.squamous Auto (Urine sed) [#/Area] 51 High [facility] Glucose Auto test strip (U) [Mass/Vol] Negative Negative mg/dL [facility] Hemoglobin Auto test strip Ql (U) Negative Negative [facility] Interpretation and review of laboratory results Abnormal [facility] Ketones (U) [Mass/Vol] Negative Negative mg/dL [facility] Leukocyte esterase Auto test strip Ql (U) Small Abnormal Negative [facility] Mucus Auto (Urine sed) [#/Area] Few Abnormal None Seen, Rare /lpf [facility] Nitrite Auto test strip Ql (U) Negative Negative [facility] pH (U) 7.0 [pH] [facility] Protein (U) [Mass/Vol] 30 Abnormal Negative mg/dL [facility] Comment on above: False positive resul ts may occur in urines with large amounts of hemoglobin, pH greater than 8.0, contrast medium, or disinfectants including ammonium compounds. Specific gravity (U) [Rel density] 1.021 [facility] Urobilinogen (U) [Mass/Vol] 2.0 mg/dL Abnormal <2.0 [facility] WBC Auto (Urine sed) [#/Area] 18 High [facility] Microscopic examinat ion is performed on all urinalysis samples and only positive findings are reported. The test for blood on the chemical analytic portion of urinalysis may also be positive due to hemoglobinuria and myoglobinuria and if red blood cells are present they are quantified by microscopic examination. [facility] Urine Pregnancyon 05-05-2019 HCG ( test) Ql (U) Negative Negative [facility] Interpretation and review of laboratory results Normal [facility] Urine Pregnancyon 04-26-2019 HCG ( test) Ql (U) Negative Negative [facility] Interpretation and review of laboratory results Normal [facility] Hepatic Function Panelon Albumin mass conc 3.7 g/dL Normal 3.2-5.2 [facility] Comment on above: Performed By: #### H EPF ####Unless otherwise noted, all testing performed by [facility] [address] [place], [place] [phone]: [id number] Director: Jason Rea M.D. ALP enzyme act/vol 70 U/L Normal 40-140 [facility] Comment on above: Performed By: #### H EPF ####Unless otherwise noted, all testing performed by [address] [phone]: [id number] Director: Jason Rea M.D. ALT enzyme act/vol 20 U/L Normal 14-65 [facility] Comment on above: Result Comment: This test result might be falsely depressed or falsely elevated onsamples drawn from patients taking Sulfasalazine and Sulfapyridine.Venipuncture should occur prior to taking either of these drugs. Performed By: #### H EPF ####Unless otherwise noted, all testing performed by [address] [phone]: [id number] Director: Jason Rea M.D. AST enzyme act/vol 11 U/L Normal 0-45 [facility] Comment on above: Result Comment: This test result might be falsely depressed or falsely elevated onsamples drawn from patients taking Sulfasalazine and Sulfapyridine.Venipuncture should occur prior to taking either of these drugs. Performed By: #### H EPF ####Unless otherwise noted, all testing performed by [address] [id number]: [id number] Director: Jason Rea M.D. Bilirubin mass conc 0.3 mg/dL Normal 0.3-1.2 [facility] Comment on above: Performed By: #### H EPF ####Unless otherwise noted, all testing performed by [address] [phone]: [id number] Director: Jason Rea M.D. Bilirubin.direct mass conc 0.2 mg/dL Normal 0.0-0.4 [facility] Comment on above: Performed By: #### H EPF ####Unless otherwise noted, all testing performed by [address] [phone]: [id number] Director: Jason Rea M.D. Protein mass conc 7.9 g/dL Normal 6.0-8.0 [facility] Comment on above: Performed By: #### H EPF ####Unless otherwise noted, all testing performed by [place] [id number]: [id number] Director: Jason Rea M.D. Chlamydia/GC/Trich Amp RNA U samantha 04-20-2018 Chlamydia trach, Amp RNA Ur Negative Normal Negative [facility] Comment on above: Performed By: #### C HLGCTRU ####Unless otherwise noted, all testing performed by [place] [id number]: [id number] Director: Jason Rea M.D. Neisseria Gonorr, Amp.RNA Ur Negative Normal Negative [facility] Comment on above: Result Comment: Test Performed by [facility] [place] [address] Performed By: #### C HLGCTRU ####Unless otherwise noted, all testing performed by [address] [phone]: [id number] Director: Jason Rea M.D. Trichomonas vag. Amp RNA Ur Positive Abnormal Negative [facility] Comment on above: Result Comment: [place] [address] Performed By: #### C HLGCTRU ####Unless otherwise noted, all testing performed by [address] [phone]: [id number] Director: Jason Rea M.D. Chlamydia/GC Probe (Amp) Uri neon 01-23-2018 Chlamydia trach, Amp RNA Ur Negative Normal Negative [facility] Comment on above: Performed By: #### U A, CHLCRISTINA ####Unless otherwise noted, all testing performed by [place] [phone]: [id number] Director: Jason Rea M.D. Neisseria Gonorr, Amp.RNA Ur Negative Normal Negative [facility] Comment on above: Result Comment: [place] [address] Performed By: #### U A, CHLGCURN ####Unless otherwise noted, all testing performed by [address] [phone]: [id number] Director: Jason Rea M.D. Urinalysison 01-23-2018 Bilirubin, Urine Negative Normal NEG;NEGATIVE [facility] Comment on above: Performed By: #### U A, CHLGCKEHINDE ####Unless otherwise noted, all testing performed by [address] [phone]: [id number] Director: Jason Rea M.D. Blood, Urine Small Abnormal NEG;NEGATIVE [facility] Comment on above: Performed By: #### U A, CHLGCURN ####Unless otherwise noted, all testing performed by [address] [phone]: [id number] Director: Jason Rea M.D. Interpretation and review of laboratory results Abnormal Invalid Interpretation Code [facility] Nitrite, Urine Negative Normal NEG;NEGATIVE [facility] Comment on above: Performed By: #### U A, CHLGCURN ####Unless otherwise noted, all testing performed by [address] [phone]: [id number] Director: Jason Rea M.D. Protein, Urine Negative Normal NEG;NEGATIVE [facility] Comment on above: Performed By: #### U A, CHLGCURN ####Unless otherwise noted, all testing performed by [address] [phone]: [id number] Director: Jason Rea M.D. RBCs, Urine 14 /HPF High 0 - 5 [facility] Squamous Epithelial 2 /HPF Invalid Interpretation Code 0 - 40 [facility] Urine, bacteria in sediment Occasional Abnormal NS;RARE [facility] Comment on above: Performed By: #### U A, CHLGCURN ####Unless otherwise noted, all testing performed by [address] [phone]: [id number] Director: Jason Rea M.D. Urine, character Hazy Invalid Interpretation Code [facility] Urine, color Yellow Normal [facility] Comment on above: Performed By: #### U A, CHLGCURN ####Unless otherwise noted, all testing performed by [address], [place] [phone]: [id number] Director: Jason Rea M.D. Urine, glucose presence Negative Normal NEG;NEGATIVE [facility] Comment on above: Performed By: #### U A, CHLGCURN ####Unless otherwise noted, all testing performed by [address] [phone]: [id number] Director: Jason Rea M.D. Urine, ketones presence Negative Invalid Interpretation Code NEG;NEGATIVE mg/dL [facility] Urine, leukocyte esterase presence Large Abnormal Negative [facility] Urine, pH 6.0 [pH] Normal 4.5-8.0 [facility] Comment on above: Performed By: #### U A, CHLGCURN ####Unless otherwise noted, all testing performed by [address] [phone]: [id number] Director: Jason Rea M.D. Urine, specific gravity 1.013 1 Invalid Interpretation Code 1.003 - 1.029 [facility] Urobilinogen, Urine < 2.0 Normal <2 [facility] Comment on above: Performed By: #### U A, CHLGCURN ####Unless otherwise noted, all testing performed by [address] [phone]: [id number] Director: Jason Rea M.D. WBCs, Urine 81 /HPF High 0 - 5 [facility] Urinalysis, Routineon 2017 Character Hazy Normal [facility] Comment on above: Performed By: #### U A, CHLGCURN ####Unless otherwise noted, all testing performed by [address] [phone]: [id number] Director: Jason Rea M.D. Ketone,Urine Negative Normal NEG;NEGATIVE [facility] Comment on above: Performed By: #### U A, CHLPIPERURN ####Unless otherwise noted, all testing performed by [address] [phone]: [id number] Director: Jason Rea M.D. Leuk.Esterase,Uri ne Large Abnormal Negative [facility] Comment on above: Performed By: #### U A, CHLCRISTINA ####Unless otherwise noted, all testing performed by [place] [phone]: [id number] Director: Jason Rea M.D. RBC,Urine 14 /HPF High 0-5 [facility] Comment on above: Performed By: #### U A, CHLCRISTINA ####Unless otherwise noted, all testing performed by [place] [phone]: [id number] Director: Jason Rea M.D. Specific [place],Urine 1.013 Normal 1.003-1.029 [facility] Comment on above: Performed By: #### U A, CHLCRISTINA ####Unless otherwise noted, all testing performed by [place] [phone]: [id number] Director: Jason Rea M.D. Squamous Epithelial 2 /HPF Normal 0-40 [facility] Comment on above: Performed By: #### U A, CHLCRISTINA ####Unless otherwise noted, all testing performed by [address] [phone]: [id number] Director: Jason Rea M.D. WBC,Urine 81 /HPF High 0-5 [facility] Comment on above: Performed By: #### U A, CHLGCURN ####Unless otherwise noted, all testing performed by [address] [phone]: [id number] Director: Jason Rea M.D. Chlamydia/GC/Trich Amp RNA U samantha 01-09-2018 Chlamydia trach, Amp RNA Ur Positive Abnormal Negative [facility] Comment on above: Performed By: #### C HLGCTRU ####Unless otherwise noted, all testing performed by [place] [phone]: [id number] Director: Jason Rea M.D. Neisseria Gonorr, Amp.RNA Ur Positive Abnormal Negative [facility] Comment on above: Result Comment: [place] [address] Performed By: #### C HLGCTRU ####Unless otherwise noted, all testing performed by [address] [phone]: [id number] Director: Jason Rea M.D. Trichomonas vag. Amp RNA Ur Positive Abnormal Negative [facility] Comment on above: Result Comment: [place] [address] Performed By: #### C HLGCTRU ####Unless otherwise noted, all testing performed by [place] [phone]: [id number] Director: Jason Rea M.D. Vital Signs Date Time Vital Sign Value Performing Clinician Facility 10-15-2024 14:21-0500 Diastolic blood pressure 72 mm[Hg] Bethany Crowder MD Work Phone: [facility] 10-15-2024 14:21-0500 Heart rate 78 /min Bethany Crowder MD Work Phone: [facility] 10-15-2024 14:21-0500 Respiratory rate 16 /min Bethany Crowder MD Work Phone: [facility] 10-15-2024 14:21-0500 SaO2% (BldA) [Mass fraction] 93 % Bethany Crowder MD Work Phone: [facility] 10-15-2024 14:21-0500 Systolic blood pressure 109 mm[Hg] Bethany Crowder MD Work Phone: [facility] 05-11-2024 23:30-0400 Diastolic blood pressure 56 mm[Hg] Danyel Newell MD Work Phone: [facility] 05-11-2024 23:30-0400 Heart rate 72 /min Danyel Newell MD Work Phone: [facility] 05-11-2024 23:30-0400 SaO2% (BldA) [Mass fraction] 94 % Danyel Newell MD Work Phone: [facility] 05-11-2024 23:30-0400 Systolic blood pressure 100 mm[Hg] Danyel Newell MD Work Phone: [facility] 05-11-2024 21:20-0400 Respiratory rate 56 /min Danyel Newell MD Work Phone: [facility] 05-11-2024 19:38-0400 Body height 165.1 cm Danyel Newell MD Work Phone: [facility] 05-11-2024 19:38-0400 Body mass index (BMI) [Ratio] 26.63 kg/m2 Danyel Newell MD Work Phone: [facility] 05-11-2024 19:38-0400 Body weight 72.58 kg Danyel Newell MD Work Phone: [facility] 05-11-2024 19:36-0400 Body temperature 98.2 [degF] Danyel Newell MD Work Phone: [facility] 03-10-2023 14:05-0400 Diastolic blood pressure 77 mm[Hg] Clarissa Lopez INTERNAL CONSULTANT Work Phone: [facility] 03-10-2023 14:05-0400 Heart rate 96 /min Clarissa Lopez INTERNAL CONSULTANT Work Phone: [facility] 03-10-2023 14:05-0400 Respiratory rate 16 /min Clarissa Lopez INTERNAL CONSULTANT Work Phone: [facility] 03-10-2023 14:05-0400 SaO2% (BldA) [Mass fraction] 100 % Clarissa Lopez INTERNAL CONSULTANT Work Phone: [facility] 03-10-2023 14:05-0400 Systolic blood pressure 118 mm[Hg] Clarissa Lopez INTERNAL CONSULTANT Work Phone: [facility] 11-27-2022 13:02-0500 Diastolic blood pressure 81 mm[Hg] Clarissa Lopez INTERNAL CONSULTANT Work Phone: [facility] 11-27-2022 13:02-0500 Heart rate 82 /min Clarissa Lopez INTERNAL CONSULTANT Work Phone: [facility] 11-27-2022 13:02-0500 Respiratory rate 16 /min Clarissa Lopez INTERNAL CONSULTANT Work Phone: [facility] 11-27-2022 13:02-0500 SaO2% (BldA) [Mass fraction] 96 % Clarissa Lopez INTERNAL CONSULTANT Work Phone: [facility] 11-27-2022 13:02-0500 Systolic blood pressure 117 mm[Hg] Clarissa Lopez INTERNAL CONSULTANT Work Phone: [facility] 08-02-2022 16:00-0400 Body height 167.6 cm No Pcp Required [facility] 08-02-2022 16:00-0400 Body temperature 99.14 [degF] No Pcp Required [facility] 08-02-2022 16:00-0400 Diastolic blood pressure 87 mm[Hg] No Pcp Required [facility] 08-02-2022 16:00-0400 Heart rate 104 /min No Pcp Required [facility] 08-02-2022 16:00-0400 Respiratory rate 18 /min No Pcp Required [facility] 08-02-2022 16:00-0400 SaO2% (BldA) [Mass fraction] 97 % No Pcp Required [facility] 08-02-2022 16:00-0400 Systolic blood pressure 120 mm[Hg] No Pcp Required [facility] 07-15-2022 15:58-0400 Body height 165.1 cm No Pcp Required [facility] 07-15-2022 15:58-0400 Body temperature 98.06 [degF] No Pcp Required [facility] 07-15-2022 15:58-0400 Diastolic blood pressure 75 mm[Hg] No Pcp Required [facility] 07-15-2022 15:58-0400 Heart rate 78 /min No Pcp Required [facility] 07-15-2022 15:58-0400 Respiratory rate 14 /min No Pcp Required [facility] 07-15-2022 15:58-0400 SaO2% (BldA) [Mass fraction] 99 % No Pcp Required [facility] 07-15-2022 15:58-0400 Systolic blood pressure 111 mm[Hg] No Pcp Required [facility] 10-23-2021 11:15-0500 Body height 167.6 cm Clarissa Lopez CNP Work Phone: [facility] 10-23-2021 11:15-0500 Body mass index (BMI) [Ratio] 29.86 kg/m2 Clarissa Lopez CNP Work Phone: [facility] 10-23-2021 11:15-0500 Body weight 83.92 kg Clarissa Lopez INTERNAL CONSULTANT Work Phone: [facility] 10-23-2021 11:15-0500 Diastolic blood pressure 77 mm[Hg] Clarissa Lopez INTERNAL CONSULTANT Work Phone: [facility] 10-23-2021 11:15-0500 Heart rate 96 /min Clarissa Lopez INTERNAL CONSULTANT Work Phone: [facility] 10-23-2021 11:15-0500 Respiratory rate 16 /min Clarissa Lopez INTERNAL CONSULTANT Work Phone: [facility] 10-23-2021 11:15-0500 SaO2% (BldA) [Mass fraction] 95 % Clarissa Lopez INTERNAL CONSULTANT Work Phone: [facility] 10-23-2021 11:15-0500 Systolic blood pressure 121 mm[Hg] Clarissa Lopez INTERNAL CONSULTANT Work Phone: [facility] 10-05-2021 14:47-0500 Body height 167.6 cm Bayron Collins MD Work Phone: [facility] 10-05-2021 14:47-0500 Body mass index (BMI) [Ratio] 32.77 kg/m2 Bayron Collins MD Work Phone: [facility] 10-05-2021 14:47-0500 Body weight 92.08 kg Bayron Collins MD Work Phone: [facility] 10-05-2021 14:47-0500 Diastolic blood pressure 84 mm[Hg] Bayron Collins MD Work Phone: [facility] 10-05-2021 14:47-0500 Heart rate 68 /min Bayron Collins MD Work Phone: [facility] 10-05-2021 14:47-0500 SaO2% (BldA) [Mass fraction] 97 % Bayron Collins MD Work Phone: [facility] 10-05-2021 14:47-0500 Systolic blood pressure 127 mm[Hg] Bayron Collins MD Work Phone: [facility] 04-06-2021 06:46-0400 Body temperature 99.1 [degF] Gosia Garner MD Work Phone: [facility] 04-06-2021 06:46-0400 Diastolic blood pressure 88 mm[Hg] Gosia Garner MD Work Phone: [facility] 04-06-2021 06:46-0400 Heart rate 110 /min Gosia Garner MD Work Phone: [facility] 04-06-2021 06:46-0400 Respiratory rate 18 /min Gosia Garner MD Work Phone: [facility] 04-06-2021 06:46-0400 SaO2% (BldA) [Mass fraction] 98 % Gosia Garner MD Work Phone: [facility] 04-06-2021 06:46-0400 Systolic blood pressure 133 mm[Hg] Gosia Garner MD Work Phone: [facility] 02-24-2020 05:25-0400 BMI (Body Mass Index) 28.25 kg/m2 [facility] 02-24-2020 05:25-0400 Body weight 79.38 kg [facility] 02-24-2020 05:25-0400 BP Diastolic 85 mm[Hg] [facility] 02-24-2020 05:25-0400 BP Systolic 125 mm[Hg] [facility] 02-24-2020 05:25-0400 Height 167.6 cm [facility] 02-24-2020 05:25-0400 Pulse (Heart Rate) 70 /min [facility] 02-24-2020 05:25-0400 Pulse Oximetry 95 % [facility] 02-24-2020 05:25-0400 Respiratory Rate 18 /min [facility] 01-27-2020 11:06-0400 BP Diastolic 49 mm[Hg] [facility] 01-27-2020 11:06-0400 BP Systolic 94 mm[Hg] [facility] 01-27-2020 11:06-0400 Pulse (Heart Rate) 66 /min [facility] 01-27-2020 11:06-0400 Pulse Oximetry 98 % [facility] 01-27-2020 11:06-0400 Respiratory Rate 16 /min [facility] 01-27-2020 07:13-0400 Body Temperature 98.29 [degF] [facility] 01-27-2020 07:12-0400 BMI (Body Mass Index) 25.82 kg/m2 [facility] 01-27-2020 07:12-0400 Body weight 72.58 kg [facility] 10-25-2019 17:21-0500 BMI (Body Mass Index) 27.44 kg/m2 [facility] 10-25-2019 17:21-0500 Body weight 77.11 kg [facility] 10-25-2019 17:21-0500 Height 167.6 cm [facility] 05-05-2019 23:07-0400 BP Diastolic 76 mm[Hg] Gael Sepulveda [facility] 05-05-2019 23:07-0400 BP Systolic 111 mm[Hg] Gael Sepulveda [facility] 05-05-2019 23:07-0400 Pulse (Heart Rate) 85 /min Gael Sepulveda [facility] 05-05-2019 23:07-0400 Pulse Oximetry 98 % Gael Sepulveda [facility] 05-05-2019 23:07-0400 Respiratory Rate 16 /min Gael Sepulveda [facility] 05-05-2019 21:42-0400 Body Temperature 98.6 [degF] Gael Sepulveda [facility] 05-05-2019 17:15-0400 BMI (Body Mass Index) 30.67 kg/m2 Gael Sepulveda [facility] 05-05-2019 17:15-0400 Body weight 86.18 kg Gael Sepulveda [facility] 05-05-2019 17:15-0400 Height 167.6 cm Gael Sepulveda [facility] 04-26-2019 17:33-0400 BP Diastolic 70 mm[Hg] Phillip [facility] 04-26-2019 17:33-0400 BP Systolic 108 mm[Hg] [facility] 04-26-2019 17:33-0400 Pulse (Heart Rate) 94 /min [facility] 04-26-2019 17:33-0400 Pulse Oximetry 97 % [facility] 04-26-2019 14:39-0400 Body Temperature 98.1 [degF] Phillip [facility] 04-26-2019 14:35-0400 BMI (Body Mass Index) 29.86 kg/m2 Phillip [facility] 04-26-2019 14:35-0400 Body weight 83.92 kg Phillip [facility] 04-26-2019 14:35-0400 Height 167.6 cm Phillip [facility] 04-26-2019 14:35-0400 Respiratory Rate 18 /min Phillip [facility] 03-19-2019 10:59-0400 BMI (Body Mass Index) 32.28 kg/m2 [facility] 03-19-2019 10:59-0400 Body Temperature 98.2 [degF] [facility] 03-19-2019 10:59-0400 Body weight 90.72 kg [facility] 03-19-2019 10:59-0400 BP Diastolic 83 mm[Hg] [facility] 03-19-2019 10:59-0400 BP Systolic 135 mm[Hg] [facility] 03-19-2019 10:59-0400 Height 167.6 cm [facility] 03-19-2019 10:59-0400 Pulse (Heart Rate) 92 /min [facility] 03-19-2019 10:59-0400 Pulse Oximetry 97 % [facility] 03-19-2019 10:59-0400 Respiratory Rate 16 /min [facility] 01-15-2019 12:12-0400 Body Temperature 97.81 [degF] [facility] 12:12-0400 BP Diastolic 90 mm[Hg] [facility] 01-15-2019 12:12-0400 BP Systolic 132 mm[Hg] [facility] 01-15-2019 12:12-0400 Pulse (Heart Rate) 75 /min [facility] 01-15-2019 12:12-0400 Pulse Oximetry 98 % Carlo [facility] Encounters Encounter Date Encounter Type Care Provider Facility Start: 03-08-2025 End: 03-15-2025 Josep Schwartz MA [facility] Start: 02-15-2025 End: 02-15-2025 ambulatory Rhina Labor Facility:[facility] Start: 01-18-2025 End: 01-18-2025 ambulatory Rhina Labor Facility:[facility] Start: 10-15-2024 End: 10-15-2024 Office outpatient visit 25 minutes Bethany Crowder MD Work Phone: [facility] Comment on above: Psychogenic nonepile ptic seizure (Primary Dx) Start: 10-15-2024 End: 10-15-2024 ambulatory BETHANY CROWDER [facility] Start: 05-11-2024 End: 05-11-2024 Emergency department patient visit Danyel Newell MD Work Phone: [facility] Start: 05-11-2024 End: 05-11-2024 Emergency department patient visit [facility] Start: 01-11-2024 End: 01-11-2024 Emergency department patient visit [facility] Start: 03-10-2023 End: 03-10-2023 Office outpatient visit 40 minutes Clarissa Lopez CNP Work Phone: [facility] Comment on above: Psychogenic nonepile ptic seizure (Primary Dx); Polysubstance dependence (HCC) Start: 11-27-2022 End: 11-27-2022 Office outpatient visit 40 minutes Clarissa Lopez CNP Work Phone: [facility] Comment on above: Psychogenic nonepile ptic seizure (Primary Dx); Mood disorder (HCC); Bipolar affective disorder, remission status unspecified (HCC); Sciatic leg pain; Polysubstance dependence (HCC) Start: 09-19-2022 End: 09-19-2022 Patient encounter procedure Clarissa Lopez CNP Work Phone: [facility] Comment on above: Psychogenic nonepile ptic seizure (Primary Dx) Start: 08-02-2022 End: 08-02-2022 Emergency department patient visit Camron Shukla [place] [id number] Start: 07-16-2022 Release of Information Provide r Not In System [facility] Historical Mapping Start: 07-16-2022 [facility] Provider Not I n System [facility] Start: 07-15-2022 End: 07-15-2022 Emergency department patient visit Camron Shukla [facility] [place] [id number] Start: 06-08-2022 Refill Clarissa Lopez INTERNAL CONSULTANT Work Phone: [facility] Comment on above: Psychogenic nonepile ptic seizure Start: 05-10-2022 Refill Clarissa Lopez INTERNAL CONSULTANT Work Phone: [facility] Comment on above: Psychogenic nonepile ptic seizure Start: 04-08-2022 Refill Clarissa Lopez INTERNAL CONSULTANT Work Phone: [facility] Comment on above: Psychogenic nonepile ptic seizure Start: 12-14-2021 End: 12-14-2021 Office outpatient new 45 minutes Shawna Whitfield DO Work Phone: [facility] Comment on above: PTSD (post-traumatic stress disorder) (Primary Dx); Generalized anxiety disorder; Mood disorder (HCC); Opioid use disorder, severe, dependence (HCC); Stimulant use disorder; Tobacco use disorder; Psychogenic nonepileptic seizure Start: 10-23-2021 End: 10-23-2021 Office outpatient visit 40 minutes Clarissa Lopez INTERNAL CONSULTANT Work Phone: [facility] Comment on above: Psychogenic nonepile ptic seizure (Primary Dx); Bipolar affective disorder, remission status unspecified (HCC); Post traumatic stress disorder (PTSD); Opioid abuse (HCC) Start: 10-05-2021 End: 10-05-2021 Postop follow up visit related to original px Bayron Collins MD Work Phone: [facility] Comment on above: Abscess of left arm (Primary Dx) Start: 04-06-2021 End: 04-06-2021 Emergency department patient visit Gosia Garner MD Work Phone: [facility] Emergency Department Start: 02-24-2020 End: 02-24-2020 Emergency department patient visit Gosia Garner Work Phone: [facility] Comment on above: Acute superficial ga stritis without hemorrhage (Primary Dx) Start: 01-28-2020 End: 01-28-2020 Patient encounter procedure Fabi [facility] Comment on above: proactive outreach Start: 01-27-2020 End: 01-27-2020 Emergency department patient visit Monico Anderson Work Phone: [facility] Emergency [facility] Comment on above: Polysubstance abuse (HCC) (Primary Dx); Elevated liver enzymes Start: 10-25-2019 End: 10-26-2019 Patient encounter procedure NONE NONE Facility:[facility] Start: 10-25-2019 End: 10-25-2019 Emergency department patient visit [facility] Start: 05-05-2019 End: 05-05-2019 Emergency department patient visit Gael Mcbrideuart Sepulveda Work Phone: [facility] Comment on above: Seizure (HCC) (Prima ry Dx); Other depression Start: 04-26-2019 End: 04-26-2019 Emergency department patient visit Phillip Jaimes Work Phone: [facility] Comment on above: Drug abuse (HCC) (Pr imary Dx) Start: 03-19-2019 End: 03-19-2019 Office outpatient visit 25 minutes Bethany Villegas Crowder Work Phone: [facility] Comment on above: Psychogenic nonepile ptic seizure (Primary Dx) Start: 01-15-2019 End: 01-15-2019 Emergency department patient visit Carlo Jimy Kimball Work Phone: [facility] Start: 05-19-2018 Patient encounter Félix Lacy [facility] Start: 04-21-2018 End: 04-21-2018 Patient encounter FÉLIX LACY [facility] Start: 04-21-2018 End: 04-21-2018 Patient encounter Félix Lacy Work Phone: [facility] Start: 04-20-2018 Patient encounter Félix Lacy Facil [facility] Start: 01-23-2018 End: 01-23-2018 Patient encounter FÉLIX LACY [facility] Start: 01-23-2018 Patient encounter Félix Mayer ity[facility] Start: 01-23-2018 End: 01-23-2018 Ambulatory Félix Lacy Work Phone: [facility] Start: 01-10-2018 End: 01-10-2018 Patient encounter FÉLIX LACY [facility] Start: 01-10-2018 End: 01-10-2018 Ambulatory Félix Lacy Work Phone: [facility] Start: 01-09-2018 Patient encounter Félix Mayer [facility] Start: 07-27-2016 End: 07-27-2016 Ambulatory Gabriel Barboza Facility:[facility] Start: 10-31-2015 End: 10-31-2015 Ambulatory Danyel Newell Work Phone: [facility] Procedures Date Procedure Procedure Detail Performing Clinician [...] foot complete minimum 3 views Jamila Anderson [facility] Work Phone: Start: 02-24-2020 Ethanol [Mass/volume] in [...] Patsy Work Phone: Start: 02-24-2020 RAINBOW DRAW [place] Josephine Patsy Work Phone: Start: 02-07-2020 Adult [...] Phone: Start: 01-12-2019 Adult depression screening assessment [facility] Plan of Treatment Date Care Activity Detail Author Start: 05-30-2025 Influenza vaccination Influenz a Vaccine (Season Ended) [facility] Start: 05-30-2024 COVID-19 Vaccine ( season) COVID-19 Vaccine ( season) [facility] Start: 05-30-2024 Influenza vaccination INFLUENZA VACC INE (#1) [facility] Start: 05-30-2023 COVID-19 VACCINE ( season) COVID-19 VACCINE ( season) [facility] Start: 05-30-2023 Influenza vaccination Sequenti al Influenza Vaccine (Season Ended) [facility] Start: 02-20-2023 End: 02-20-2023 Patient encounter procedure 02/20/2023 Office Visit Neurology Clarissa Lopez, IVELISSE [address] [place], [place] [id number] [facility] Start: 10-23-2022 End: 10-23-2022 Patient encounter procedure 10/23/2022 Office Visit Neurology Clarissa Lopez CNP [address] [place] [id number] [facility] Start: 10-14-2022 End: 10-14-2022 Patient encounter procedure 10/14/2022 Office Visit Primary Care Maria Esther Noe, IVELISSE [address] [place] [id number] [facility] Start: 09-19-2022 End: 09-19-2022 Patient encounter procedure 09/19/2022 Office Visit Neurology Clarissa Lopez, INTERNAL CONSULTANT [address] [facility] [address] [place] [id number] [facility] Start: 05-30-2022 Influenza vaccination Sequenti al Influenza Vaccine (#1) [facility] Start: 04-22-2022 End: 04-22-2022 Patient encounter procedure 04/22/2022 Office Visit Neurology Clarissa Lopez, INTERNAL CONSULTANT [address] [facility] [address] [place] [id number] [facility] Start: 03-20-2022 End: 03-20-2022 Patient encounter procedure 03/20/2022 Office Visit Psychiatry Ayana Mahmood, INTERNAL CONSULTANT [address] [facility] [address] [place] [id number] [facility] Start: 2022 Screening for malign ant neoplasm of cervix [facility] Start: 10-23-2021 End: 10-23-2021 Patient encounter procedure 10/23/2021 Office Visit Neurology Clarissa Lopez, INTERNAL CONSULTANT [address] [facility] [address] [place] [id number] [facility] Start: 05-30-2021 Influenza vaccination Sequenti al Influenza Vaccine (#1) [facility] Start: 02-06-2021 Depression screening using PHQ-9 (Patient Health Questionnaire 9) score [facility] Start: 05-30-2020 Influenza vaccinatio n given Sequential Influenza Vaccine (Season Ended) [facility] Start: 01-13-2020 Depression screening using PHQ-9 (Patient Health Questionnaire 9) score DEPRESSION SCREENING (PHQ9) [facility] Start: 12-14-2019 End: 12-14-2019 Office Visit 12/14/2019 Office Visit Psychiatry Guy Pichardo MD [address] [place] [phone] [facility] Start: 05-30-2019 Influenza vaccinatio n given [facility] Start: 04-13-2019 End: 04-13-2019 Office Visit 04/13/2019 Office Visit Primary Care Criss Larry, INTERNAL CONSULTANT [address] [place] [address] [place] [id number] Start: 05-30-2018 Influenza vaccination SEQUENTI AL INFLUENZA VACCINE (#1) [facility] Start: 05-30-2018 Influenza vaccinatio n given SEQUENTIAL INFLUENZA VACCINE (#1) [facility] Start: 05-30-2017 Influenza vaccination SEQUENTI AL INFLUENZA VACCINE (#1) [facility] Work Phone: Start: 2013 Screening for malign ant neoplasm of cervix [facility] Start: 2011 Hepatitis B vaccination HEP B VACCINE (1 of 3 - 19+ 3-dose series) [facility] Start: 2011 Pneumococcal Vaccine : Ped or At-Risk (1 of 2 - PCV) Pneumococcal Vaccine: Ped or At-Risk (1 of 2 - PCV) [facility] Start: 2011 Third diphtheria, tetanus and acellular pertussis (DTaP) vaccination TDAP (ADULT) [facility] Start: 2007 HIV screening HIV SCREENING DISCUSSION [facility] Start: 2004 COVID-19 Vaccine (1) COVID-19 Vaccin e (1) [facility] Start: 2003 Vaccination for kimani n papillomavirus HPV VACCINES (1 of 3 - Female 3 Dose Series) [facility] Work Phone: Start: 1998 Pneumococcal Vaccine : Ped or At-Risk (1 - PCV) Pneumococcal Vaccine: Ped or At-Risk (1 - PCV) [facility] Start: 1998 Pneumococcal Vaccine : Ped or At-Risk (1 of 2 - PPSV23) Pneumococcal Vaccine: Ped or At-Risk (1 of 2 - PPSV23) [facility] Start: 1997 COVID-19 Vaccine (1) COVID-19 Vaccin e (1) [facility] Start: 1995 History and physical examination, annual for health maintenance Wellness Visit [facility] Start: 1992 COVID-19 Vaccine (#1) COVID-19 Vacci ne (#1) [facility] Start: 1992 Depression screening using PHQ-9 (Patient Health Questionnaire 9) score Depression Screening (PHQ9) [facility] Start: 1992 Hepatitis C screening HEPATITI S C VIRUS SCREENING [facility] Start: 1992 Screening for malign ant neoplasm of cervix PAP SMEAR [facility] Start: 1992 Tetanus vaccination [facility] End: 01-27-2020 Bacteria identified Aer cx Nom (Unsp spec) Urine Aerobic Culture Microbiology Routine Once for 1 Occurrences starting 01/27/2020 until 01/27/2020 [facility] Comment on above: Once for 1 Occurrenc es starting 01/27/2020 until 01/27/2020 Bacteria identified Aer cx Nom (Unsp spec) [facility] End: 05-05-2019 Bacteria identified Aer cx Nom (Unsp spec) Urine Aerobic Culture Microbiology Routine Once for 1 Occurrences starting 05/05/2019 until 05/05/2019 [facility] Comment on above: Once for 1 Occurrenc es starting 05/05/2019 until 05/05/2019 End: 04-06-2021 Bacteria identified in Blood by Culture Blood Culture Aerobic/Anaerobic Microbiology Routine Once for 1 Occurrences starting 04/06/2021 until 04/06/2021 [facility] Comment on above: Once for 1 Occurrenc es starting 04/06/2021 until 04/06/2021 CT of head without contrast CT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 Medicine 07/23/16 Ceci Lal, [facility] [address] [facility] [place] [address] Nurse Practitioner Obstetrics/Gynecology 08/16/21 Amanda Lucas MD [address] [place] [address] Shear Operator Helper Obstetrics/Gynecology 08/16/21 Susannah Johnston MD [address] [place] [address] Shear Operator Helper Obstetrics/Gynecology 08/16/21 Salud Iyer, CN [address] [place] [address] Maritime Engineer Obstetrics/Gynecology 08/16/21 Solar Sales Associate Relationship Specialty Start Date End Date Criss Larry, INTERNAL CONSULTANT [address] [place] [id number] PCP - General Family Medicine 07/23/16 Ceci Lal, [facility] [address] [place] [address] Nurse Practitioner Obstetrics/Gynecology 08/16/21 Amanda Lucas MD [address] [place] [address] Shear Operator Helper Obstetrics/Gynecology 08/16/21 Susannah Johnston MD [address] [place] [address] Shear Operator Helper Obstetrics/Gynecology 08/16/21 Salud Iyer, LETITIA [address] [place] [address] Maritime Engineer Obstetrics/Gynecology 08/16/21 Solar Sales Associate Relationship Specialty Start Date End Date No, Physician [facility] PCP - General 06/04/22 Ceci Lal, INTERNAL CONSULTANT [address] [place] [address] Nurse Practitioner Obstetrics/Gynecology 08/16/21 Amanda Lucas MD [address] [place] [address] Shear Operator Helper Obstetrics/Gynecology 08/16/21 Susannah Johnston MD [address] [place] [address] Shear Operator Helper Obstetrics/Gynecology 08/16/21 Salud Iyer, LETITIA [address] [place] [address] Maritime Engineer Obstetrics/Gynecology 08/16/21 Solar Sales Associate Relationship Specialty Start Date End Date No, Physician [facility] PCP General 06/04/22 Ceci Lal, INTERNAL CONSULTANT [address] [place] [address] Nurse Practitioner Obstetrics/Gynecology 08/16/21 Amanda Lucas MD [address] [place] [address] Shear Operator Helper Obstetrics/Gynecology 08/16/21 Susannah Johnston MD [address] [place] [address] Shear Operator Helper Obstetrics/Gynecology 08/16/21 Salud Iyer CNM [address] [place] [address] Maritime Engineer Obstetrics/Gynecology 08/16/21 Maycol Cox MD [address] [facility] [place] [address] Consulting Physician Addiction Medicine 07/15/22 Solar Sales Associate Relationship Specialty Start Date End Date No, Physician [facility] PCP - General 06/04/22 Ceci Lal, INTERNAL CONSULTANT [address] [place] [address] Nurse Practitioner Obstetrics/Gynecology 08/16/21 Amanda Lucas MD [address] [place] [address] Shear Operator Helper Obstetrics/Gynecology 08/16/21 Susannah Johnston MD [address] [place] [address] Shear Operator Helper Obstetrics/Gynecology 08/16/21 Salud Iyer CNM [address] [place] [address] Maritime Engineer Obstetrics/Gynecology 08/16/21 Maycol Cox MD [address] [place] [address] Consulting Physician Addiction Medicine 07/15/22 Solar Sales Associate Relationship Specialty Start Date End Date Criss Larry, IVELISSE PCP - General Family Medicine 07/23/16 05/21/22 No, Physician [facility] PCP - General 06/04/22 Ceci Lal, INTERNAL CONSULTANT [address] [place] [address] Nurse Practitioner Obstetrics/Gynecology 08/16/21 Amanda Lucas MD [address] [place] [address] Shear Operator Helper Obstetrics/Gynecology 08/16/21 Susannah Johnston MD [address] [facility] [place] [address] Shear Operator Helper Obstetrics/Gynecology 08/16/21 Salud Iyer, AVEL [address] [place] [address] Maritime Engineer Obstetrics/Gynecology 08/16/21 Maycol Cox MD [address] [place] [address] Consulting Physician Addiction Medicine 07/15/22 Solar Sales Associate Relationship Specialty Start Date End Date No, Physician [facility] PCP - General 11/27/22 Ceci Lal, IVELISSE [address] [place] [address] Nurse Practitioner Obstetrics/Gynecology 08/16/21 Amanda Lucas MD [address] [place] [address] Shear Operator Helper Obstetrics/Gynecology 08/16/21 Susannah Johnston MD [address] [facility] [place] [address] Shear Operator Helper Obstetrics/Gynecology 08/16/21 Salud Iyer, [facility] [address] [facility] [place] [address] Maritime Engineer Obstetrics/Gynecology 08/16/21 Maycol Cox MD [address] [place] [address] Consulting Physician Addiction Medicine 07/15/22 Solar Sales Associate Relationship Specialty Start Date End Date Guerline Harvey, INTERNAL CONSULTANT [address] [place], [place] [address], [place] [address] PCP - General Family Medicine 03/10/23 Ceci Lal, IVELISSE [address] [place] [address] Nurse Practitioner Obstetrics/Gynecology 08/16/21 Amanda Lucas MD [address] [place] [address] Shear Operator Helper Obstetrics/Gynecology 08/16/21 Susannah Johnston MD [address] [place] [id number] Shear Operator Helper Obstetrics/Gynecology 08/16/21 Salud Iyer CNM [address] [place], [place] [phone] Maritime Engineer Obstetrics/Gynecology 08/16/21 Maycol Cox MD [address] [place] [address] Consulting Physician Addiction Medicine 07/15/22 Solar Sales Associate Relationship Specialty Start Date End Date Guerline Harvey CNP [address] [facility] [address] [place] [id number] PCP - General Family Medicine 03/10/23 Ceci Lal CNP [address] [place] [address] Nurse Practitioner Obstetrics/Gynecology 08/16/21 Amanda Lucas MD [address] [place] [address] Shear Operator Helper Obstetrics/Gynecology 08/16/21 Susannah Lang MD [facility] [address] [place] [address] Shear Operator Helper Obstetrics/Gynecology 08/16/21 Salud Iyer CNM [address] [place] [address] Maritime Engineer Obstetrics/Gynecology 08/16/21 Solar Sales Associate Relationship Specialty Start Date End Date Guerline Harvey, INTERNAL CONSULTANT [address] [place] [address] [address] [place] [address] PCP - General Family Medicine 03/10/23 Ceci Lal CNP [facility] [place] [address] Nurse Practitioner Obstetrics/Gynecology 08/16/21 Amanda Lucas MD [address] [place] [address] Shear Operator Helper Obstetrics/Gynecology 08/16/21 Susannah Lang MD [facility] [address] [place] [address] Shear Operator Helper Obstetrics/Gynecology 08/16/21 Salud Iyer CNM [address] [place] [address] Maritime Engineer Obstetrics/Gynecology 08/16/21 <item><item> Privacy Markings (unrecogniz ed [...] BE BASED ON THE PRIMARY CLINICAL RECORDS. [employer] [facility] provides no warranty or guarantee of the accuracy or completeness of information in this document.
== END | disposition home or self-care (01) ==
LOC: LAB 11:48
PROVIDERS: PCP Family Medicine; Referring Provider Psychiatry & Neurology Psychiatry; Visit Provider Psychiatry & Neurology Psychiatry
DX: E03.9 Hypothyroidism, unspecified (principal)
CPT/HCPCS: 36415; 84439; 84443; 84481